=== PATIENT | female | born 1965 | race Caucasian/White ===

== ENCOUNTER → 2018-03-20 01:34 | Outpatient (CLI) | payer OTHER, SELFPAY ==
--- NOTE | 2018-03-20 11:46 | DI.REPORT_ITS ---
SYMPTOMS/DIAGNOSIS: SCREENING, Z12.31 MAMMOGRAMS: Mammograms were interpreted according to the usual protocol including computer analysis with CAD system, tomosynthesis and C view imaging. The breast tissue is of moderate radiodensity. There is no evidence of a dominant mass. There are no suspicious calcifications. When compared with the previous examination, there is a question regarding interval development of a small area of nodularity adjacent to the chest wall in the lateral portion of the right breast, as demonstrated on the CC projection. Further assessment of this patient with a craniocaudad compression spot film and rolled medial CC image and, if appropriate, ultrasound is recommended. SUMMARY: Category 0. Breast density category B. MQSA ASSESSMENT OF FINDINGS: Incomplete: Needs additional imaging evaluation. Category 0. Patient will receive a letter notifying them of these results. BI-RADS category B. There are scattered areas of fibroglandular density.
== END ==
PROVIDERS: PCP Family Medicine; Visit Provider Obstetrics & Gynecology Gynecology
DX: Z12.31 Encounter for screening mammogram for malignant neoplasm of breast (principal); R92.8 Other abnormal and inconclusive findings on diagnostic imaging of breast
CPT/HCPCS: 77063; 77067

== ENCOUNTER 2018-03-25 01:23 | Outpatient (CLI) | payer OTHER, SELFPAY ==
--- NOTE | 2018-03-25 09:25 | DI.MAMMO_ITS ---
SYMPTOM/DIAGNOSIS: F/U ABNL MAMMO, SMALL AREA OF NODULARITY ADJACENT TO CHEST WALL. ADDITIONAL MAMMOGRAPHIC VIEWS RIGHT BREAST AND RIGHT BREAST ULTRASOUND: 03/25 Additional images are interpreted according to the usual protocol including tomosynthesis and 2D imaging. Additional mammographic views of the right breast and right breast ultrasound were interpreted in conjunction. These examinations were obtained to evaluate incompletely visualized posteriorly located ovoid mass seen on recent mammogram. Additional mammographic views confirm a well circumscribed nodule with appearance of an intramammary lymph node. Breast ultrasound shows an approximately 8 x 10 mm in diameter well circumscribed mass with characteristic annel architecture. No suspicious mass identified. CONCLUSION: Small left breast nodule is lymph node. Follow up mammogram suggested in 12 months. Category 2, breast density category B. MQSA ASSESSMENT OF FINDINGS: Negative with benign findings. Category 2. Patient will receive a letter notifying them of these results. BI-RADS category B. There are scattered areas of fibroglandular density.
== END 2018-03-25 01:43 ==
PROVIDERS: PCP Family Medicine; Visit Provider Obstetrics & Gynecology Gynecology
DX: Z12.31 Encounter for screening mammogram for malignant neoplasm of breast (principal); R92.8 Other abnormal and inconclusive findings on diagnostic imaging of breast; N60.82 Other benign mammary dysplasias of left breast
CPT/HCPCS: 76642; 77063; 77067

== ENCOUNTER 2019-03-18 15:18 | Outpatient (CLI) | payer OTHER, SELFPAY ==
--- NOTE | 2019-03-18 14:24 | DI.RAD_ITS ---
SYMPTOMS/DIAGNOSIS: KNEE PAIN RIGHT KNEE: Three views. There are mild degenerative changes of the right knee predominantly involving the medial femoral tibial joint space and the patellofemoral joint. The bones are intact and normally mineralized. The soft tissues are unremarkable. IMPRESSION: Mild osteoarthritis of the right knee. LEFT KNEE: Three views. Mild degenerative changes are seen at the patellofemoral joint. The bones are intact and normally mineralized. The soft tissues are unremarkable. IMPRESSION: Mild degenerative changes of the left knee.
== END 2019-03-18 15:38 ==
PROVIDERS: PCP Family Medicine; Visit Provider Physician Assistant
DX: M25.561 Pain in right knee (principal); M25.562 Pain in left knee; M17.0 Bilateral primary osteoarthritis of knee
CPT/HCPCS: 73562

== ENCOUNTER 2019-05-08 02:18 | Outpatient (CLI) | payer OTHER, SELFPAY ==
--- NOTE | 2019-05-08 09:52 | DI.US_ITS ---
EXAM: US PELVIS TRANSVAGINAL CLINICAL HISTORY: R ovarian fullness s/p salpingectomy/hysterectomy TECHNIQUE: Ultrasound performed using standard protocol. COMPARISON: PELVIS TRANSVAG from 10/11/2015 PELVIS TRANSVAG from 10/11/2015 FINDINGS: Patient is status post hysterectomy and left oophorectomy as well as bilateral salpingectomy. There is a mass arising from the right ovary with a cystic and solid components and internal vascularity. It measures 4.6 x 51.4 x 1.7 cm. No free fluid is seen. A small cyst is noted on the left kidney. No renal calculi or hydronephrosis is seen. IMPRESSION: 4.6 centimeter cystic and solid right ovarian mass. Surgical consultation is recommended.
== END 2019-05-08 02:38 ==
PROVIDERS: PCP Family Medicine; Visit Provider Obstetrics & Gynecology Gynecology
DX: N83.8 Other noninflammatory disorders of ovary, fallopian tube and broad ligament (principal); N83.291 Other ovarian cyst, right side; Z90.710 Acquired absence of both cervix and uterus
CPT/HCPCS: 76830; 76856

== ENCOUNTER 2019-06-17 01:32 | Outpatient (CLI) | payer OTHER, SELFPAY ==
--- NOTE | 2019-06-17 12:43 | DI.MAMMO_ITS ---
EXAM: MAMMO SCREENING CLINICAL HISTORY: screening Z12.39 TECHNIQUE: Mammograms were interpreted according to the usual protocol including computer analysis w [employer] CAD system, tomosynthesis and C-view imaging. COMPARISON: Current examination is compared with previous examinations including February 2018 FINDINGS: The breasts are of moderate density with fairly symmetrical distribution of fibroglandular tissue. N o dominant mass or clumped microcalcification identified in either breast. Current examination is co mpared with previous examinations including February 2018 and there has been no gross interval change i n appearance in comparison with the previous studies. IMPRESSION: No specific evidence of malignancy at this time. Routine screening examinations are suggested at year ly intervals due to the family history of breast carcinoma. Category 1, breast density category B. BI-RADS Cat 1 - Negative Breast Density - Category B - Scattered areas of fibroglandular density
== END 2019-06-17 01:52 ==
PROVIDERS: PCP Family Medicine; Visit Provider Obstetrics & Gynecology Gynecology
DX: Z12.31 Encounter for screening mammogram for malignant neoplasm of breast (principal); Z80.3 Family history of malignant neoplasm of breast
CPT/HCPCS: 77063; 77067

== ENCOUNTER 2020-06-22 01:06 | Outpatient (CLI) | payer OTHER, SELFPAY ==
--- NOTE | 2020-06-22 10:48 | DI.MAMMO_ITS ---
EXAM: MG MAMMO SCREENING CLINICAL HISTORY: screening,Z12.39. TECHNIQUE: Bilateral full field digital CC and MLO mammographic images were obtained with 3D tomosyn thesis and utilizing computer aided detection (CAD). COMPARISON: Prior mammograms dating back to 2011, the most recent being May 2019. Breast ultra sound performed March 2018 was reviewed. FINDINGS: There are no new dominant masses nor malignant appearing microcalcification groups. Small nodules pos teriorly in both breasts have the appearance of benign lymph nodes. There is no new architectural di stortion nor skin thickening-retraction. IMPRESSION: Stable benign findings. No radiographic evidence of malignancy. BI-RADS Category 2 - Benign Findings Breast Density - Category B - Scattered areas of fibroglandular density Breast density Category C or D implies that the patient has dense breast tissue. Dense breast tissue can make it harder to find cancer on a mammogram. Dense breast tissue is also associated with an incr eased risk of breast cancer. This information about the result of the mammogram report was provided to the patient to raise their awareness. Use this report when you speak with the patient about their risks for breast cancer, which includes their family history. At that time, you may recommend additional screening tests (Ultrasoun d or MRI) as these tests may add significant information. A negative radiographic report should not delay biopsy if a dominant or clinically suspicious mass is present. Up to ten percent of cancers are not identified on mammography. A negative report may reinforce clinical impression. Adenosis and dense breasts may obscure an underlying neoplasm. False positive reports average 6 to 10%. Patient will receive a letter notifying them of these results.
== END 2020-06-22 01:26 ==
PROVIDERS: PCP Family Medicine; Visit Provider Obstetrics & Gynecology Gynecology
DX: Z12.31 Encounter for screening mammogram for malignant neoplasm of breast (principal); N63.20 Unspecified lump in the left breast, unspecified quadrant; N63.10 Unspecified lump in the right breast, unspecified quadrant
CPT/HCPCS: 77063; 77067

== ENCOUNTER 2021-10-02 00:33 | Outpatient (CLI) | payer OTHER, SELFPAY ==
--- NOTE | 2021-10-02 | DI.MAMMO_ITS ---
Exam(s) MAMMO SCREENING EXAM: MAMMO SCREENING CLINICAL HISTORY: SCREENING, Z12.39 TECHNIQUE: Mammograms were interpreted according to the usual protocol including computer analysis w [email or web address] CAD system, tomosynthesis and C-view imaging. COMPARISON: 2013 through 2019 FINDINGS: The breasts are composed of scattered fibroglandular densities, Breast Density category B. No suspicious masses or suspicious microcalcifications are seen. No skin thickening or abnormal axillary lymph nodes are seen. There has been no significant change from prior exams. IMPRESSION: BI-RADS Category 1, Negative mammogram Yearly screening mammography is recommended. Breast Density - Category B, scattered fibroglandular densities. A negative radiographic report should not delay biopsy if a dominant or clinically suspicious mass is present. Up to ten percent of cancers are not identified on mammography. A negative report may reinforce clinical impression. Adenosis and dense breasts may obscure an underlying neoplasm. False positive reports average 6 to 10%. Patient will receive a letter notifying them of these results.
== END 2021-10-02 00:53 ==
PROVIDERS: PCP Family Medicine; Visit Provider Registered Nurse
DX: Z12.31 Encounter for screening mammogram for malignant neoplasm of breast (principal)
CPT/HCPCS: 77063; 77067

== ENCOUNTER → 2022-02-20 18:47 | Outpatient (CLI) | payer OTHER, SELFPAY ==
--- NOTE | 2022-02-20 14:39 | DI.RAD_ITS ---
Exam(s) XR HAND RT COMPLETE EXAM: XR HAND RT COMPLETE CLINICAL HISTORY: PROXIMAL INTERPHALANGEAL JOINT OF FINGER, PAIN--M79.646. TECHNIQUE: 2D digital imaging was performed of the right hand. Three images were obtained. AP, late ral and oblique views were obtained. COMPARISON: No exams were available for comparison FINDINGS: BONES: No acute fracture is present. No bony destructive lesion is seen. The distal aspect of a sidep late and screws are seen in distal radius. JOINTS: No dislocation present. The joint spaces are well maintained. SOFT TISSUE: Normal. IMPRESSION: Unremarkable radiographs of the right hand. DATA REPOSITORY: RADIATION DOSE DELIVERED:
== END ==
PROVIDERS: PCP Family Medicine; Visit Provider Physician Assistant Medical
DX: M79.644 Pain in right finger(s) (principal)
CPT/HCPCS: 73130

== ENCOUNTER 2022-09-12 10:10 | Outpatient (REF) | payer OTHER, SELFPAY ==
[2022-09-12 15:42] LABS: HCT 43.6 % (36.0-46.0); HGB 14.1 g/dL (11.2-15.7); MCH 27.9 pg (27.0-33.0); MCHC 32.3 % (32.0-36.0); MCV 86 fL (80-95); MPV 10.1 fL (8.0-11.0); Platelet Count 318 10^3/uL (130-400); RBC 5.06 10^6/uL (3.93-5.22); RDW 15.5 % (11.7-14.6); RDW-SD 48.9 fL; WBC 6.33 10^3/uL (4.4-10.8)
[2022-09-12 16:17] LABS: Hemoglobin A1C 5.8 % (<5.7)
[2022-09-12 16:21] LABS: Anion Gap 11.9 mmol/L (3-11); BUN 16 mg/dL (7-18); CO2 26.1 mmol/L (21.0-32.0); CREATININE 0.9 mg/dL (0.55-1.02); Calcium 9.4 mg/dL (8.5-10.1); Chloride 102 mmol/L (98-107); Cholesterol 237 mg/dL (<200); Glucose 112 mg/dL (74-106); Potassium 4.1 mmol/L (3.5-5.1); Sodium 140 mmol/L (136-145); Triglyceride 131 mg/dL (<150)
[2022-09-12 17:25] LABS: Calculated LDL 136 mg/dL (<100); HDL Cholesterol 75 mg/dL (40-60); TSH 8.52 uIU/mL (0.36-3.74)
[2022-09-13 10:32] LABS: FREE T4 0.86 ng/dL (0.76-1.46)
[2022-09-13 17:52] LABS: T3, Total 147 ng/dL (97-169)
== END 2022-09-12 10:11 | disposition home or self-care (01) ==
LOC: NCHCN 10:10
PROVIDERS: PCP Family Medicine; Visit Provider Registered Nurse
DX: Z00.00 Encounter for general adult medical examination without abnormal findings (principal); R73.03 Prediabetes; R53.83 Other fatigue; Z79.899 Other long term (current) drug therapy; Z13.220 Encounter for screening for lipoid disorders
CPT/HCPCS: 80048; 80061; 85027; 83036; 84439; 84443; 84480

== ENCOUNTER 2022-12-15 06:26 | Emergency (ER) | payer OTHER, SELFPAY ==
--- NOTE | 2022-12-15 06:30 | DI.RAD_ITS ---
Exam(s) XR SHOULDER LT COMPLETE 2+V EXAM: XR SHOULDER LT COMPLETE 2+V CLINICAL HISTORY: fall, anterior left shoulder pain. TECHNIQUE: 2D digital imaging was performed. COMPARISON: No exams were available for comparison FINDINGS: Four views No evidence of fracture or dislocation. No abnormal soft tissue calcifications. Glenohumeral joint appears unremarkable. Mild degenerative changes in the AC joint. No osteophytes. Bone density norm al. No osseous lesions. IMPRESSION: No significant radiographic findings. DATA REPOSITORY: RADIATION DOSE DELIVERED:
[2022-12-15 06:32] VITALS: BP 170/89; PULSE 99; RESP 18; TEMP 37; O2SAT 97
--- NOTE | 2022-12-15 06:38 | ED.GENADUL_ITS ---
Discharge Plan Disposition Patient Disposition: Home Discharge Details Chief Complaint: Orthopedic Clinical Impression: Sprain of left shoulder Primary Care Provider: Maribel Brian ED Provider: Jatin Basurto Home Meds and New Rx's Prescriptions: No Action multivitamin with minerals 1 EACH tablet 1 ea PO QAM glucosamine-chondroitin 1 EACH tablet 1 ea PO DAILY pinecone extract 1 cap PO QAM Fish Oil 1 EACH capsule 1 ea PO estradiol 1 mg tablet 1 mg PO DAILY Qty: 30 2RF duloxetine 20 mg capsule,delayed release(DR/EC) 60 mg PO DAILY [place] cone extract capsule 1 tab PO DAILY cholecalciferol (vitamin D3) 1,000 UNITS tablet 5,000 unit PO HS Ferractiv 1 EACH capsule 1 cap PO QAM Discharge Instructions Instructions: Shoulder Sprain (ED) Additional Instructions: At this time your x-ray is negative for any evidence of fracture. As we discussed together I suspect that you sprained the rotator cuff. You have been given a sling for comfort, however use this with caution. If you do not move your shoulder much over the next few days it will become restricted, and you will develop frozen shoulder syndrome. Every day please passively move your arm in all ranges of motion 3-4 times per day to maintain mobility. Please take Tylenol and Motrin as needed for pain. You can apply Voltaren gel which is [id number] to your shoulder to help with the pain. I also supposed suspect that you have a mild bursa irritation, and this may take 6 weeks to improve for the pain. If your symptoms or not improving over the next 2 to 3 weeks, you may need to follow-up with our equipment specialist Whose numbers have been included below. If you notice any worsening of your symptoms, or any new symptoms such as vomiting, diarrhea, fever, chills, shortness of breath, chest pain, numbness, weakness, or fainting , please return immediately to the emergency department for reevaluation. Please follow up with your primary care provider as soon as possible for reassessment and reevaluation. As always, it was a pleasure partic ipating in your medical care today. Referrals: Parth Adan MD [ [facility] STAFF PHYSICIAN] - Maribel Brian [Primary Care Provider] - Dano Samuel MD [ [facility] STAFF PHYSICIAN] - Medical Decision Making This is a pleasant 57-year-old female who presents today for left shoulder pain. Patient is right-hand dominant. She states that she was walking this morning at 5:25 AM when she slipped because of a cat, she landed on her left elbow which caused torquing and pain in her left shoulder. She did take ibuprofen 800 mg, came to the ER for further assessment. Pain in her left shoulder is made worse with movement in all directions. She denies any numbness or tingling. No pain to the elbow or other complaints. No other modifying factors. Exam demonstrates tenderness over the biceps tendon, as well as with internal and external rotation of the left shoulder. Concern for mild rotator cuff injury or bursal irritation. We will get x-ray to rule out fracture, monitor closely and reassess. 7:47 AM X-ray negative for acute process per radiology. Suspect sprain versus rotational cuff injury. Will give sling only for comfort however we have educated the patient notably on the importance of continued movement to prevent any reduced range of motion or frozen shoulder syndrome. Recommend NSAID ther apy and ice for the next 1 to 2 weeks, and if no improvement may require orthopedic follow-up. I have extensively reviewed the treatment plan and discharge instructions with the patient. I have addressed all patient concerns at this time. The patient was made aware of what symptoms to monitor for that would warrant a return to the emergency department. Discussed the plan with the patient, they demonstrate verbal understanding and agreement with our assessment and plan at this time. The documentation in this chart was dictated using [employer] dictation software. Please excuse any dictation errors. FINDINGS: Bones/joints: There is no fracture or dislocation. Osseous structures are normal. Joint spaces are maintained. Soft tissues: Normal. IMPRESSION: No acute osseous pathology. Thank you for allowing us to participate in the care of your patient. Dictated and Authenticated by: Eliceo Barillas MD 12/15/2022 7:23 AM Eastern Time ([place] & [place]) HPI General Date/Time Provider Initiated Documentation: 12/15/22 06:27 . HPI Narrative: This is a pleasant 57-year-old female who presents today for left shoulder pain. Patient is right-hand dominant. She states that she was walking this morning at 5:25 AM when she slipped because of a cat, she landed on her left elbow which caused torquing and pain in her left shoulder. She did take ibuprofen 800 mg, came to the ER for further assessment. Pain in her left shoulder is made worse with movement in all directions. She denies any numbness or tingling. No pain to the elbow or other complaints. No other modifying factors. Related Data Home Medications Medication Instructions Recorded Confirmed glucosamine-chondroitin 500 mg-400 1 ea PO DAILY 09/29/12 12/15/22 mg tablet multivitamin with minerals 1 ea PO QAM 09/29/12 12/15/22 Pinecone Extract 1 cap PO QAM 10/13/12 12/15/22 cholecalciferol (vitamin D3) 25 5,000 unit PO HS 07/28/15 12/15/22 mcg (1,000 unit) tablet iron amino acid chelate-vit 1 cap PO QAM 08/07/16 12/15/22 [id number]-[id number] acid 27 mg-100 mcg-400 mcg cap (Ferractiv) omega-3 fatty acids-fish oil 340 1 ea PO 03/07/18 05/11/20 mg-1,000 mg capsule (Fish Oil) estradiol 1 mg tablet 1 mg PO DAILY #30 tabs 05/31/20 12/15/22 [place]ach [place] cone extract 1 tab PO DAILY 10/31/22 12/15/22 duloxetine 20 mg capsule,delayed 60 mg PO DAILY 10/31/22 12/15/22 release Previous Rx's Medication Instructions Recorded estradiol 1 mg tablet 1 mg PO DAILY #30 tabs 05/31/20 Allergies Allergy/AdvReac Type Severity Reaction Status Date / Time No Known Allergies Allergy Unverified 05/11/20 13:31 General Stated Complaint: Orthopedic SAHRA: 4 Review of Systems All systems reviewed & are unremarkable except as noted in HPI and below PFSH All Active Problems (Updated 12/15/22 @ 07:47 by Jatin Basurto DO) Sprain of left shoulder (Acute) Tinnitus, bilateral (Acute) Menopausal symptom (Acute) [place]Ac[place] [facility] [place]ar[place] right [place]oph[place] after abnormal pelvic ultrasound. Benign pathology. No further follow-up required. Hallux valgus of right foot (Acute) Hallux valgus of left foot (Acute) Primary osteoarthritis of right knee (Acute) Primary osteoarthritis of left knee (Acute) Medical History Fatigue Joint pain Rx with Duloxetine. Kidney stone Surgical History Abdominal hysterectomy B9 indications. Fibroids. Arthroplasty (08/17/16) INTERPOSITIONAL ARTHROPLASTY --LEFT WRIST/DR. SADLER Colonoscopy - MAC (09/30/17) Extraction of cataract Oophrectomy, Left 2017. Multiloculated mesothelial cyst removed via laparotomy. ? ovarian tissue identified. Bilateral salpingectomy performed at same surgery. R ovary has never been removed (no evidence of path report in [facility] records) Family History Mother Personal history of malignant neoplasm Breast ca Sister No problems noted. Brother No problems noted. Social History Smoking/Tobacco Use Status: Never Smoking risk assessment performed?: Yes Alcohol Intake: current Alcohol Intake frequency: a few times a month Drug use: Never Household members: none and other Details: to Vincent x21yrs. 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 3.ENT: Atraumatic external nose and ears. Moist MM. Neck: Symmetric, trachea midline, No thyromegaly. 4.CVS: +S1/S2, No murmurs or gallops. Peripheral pulses 2+ and equal in all extremities. Brisk capillary refill in all extremities. 5.RESP: Unlabored respiratory effort. Clear to auscultation bilaterally. No wheezes rales or rhonchi 6.GI: Soft, Nontender/Nondistended, No hepatosplenomegaly. No guarding or rebound. 7.MSK: Normocephalic/Atraumatic, Extremities w/o deformity. Elbow demonstrates no tenderness deformity or redness or edema. Forearm normal. Normal movement to the elbow and wrist and hands. Patient does have minimal pain on the anterior aspect of her shoulder over the biceps tendon. Pain with external rotation and internal rotation. Empty can test elicits notable pain and some weakness. No significant pain with abduction and adduction passively. 8.Skin: Warm, Dry. No rashes or lesions. 9.Neuro: emr specialist II-XII grossly intact. Sensation grossly intact, no focal neurologic deficits. 10.Psych: (AAO) x3. Appropriate mood and affect Course Vital Signs Vital signs: Vital Signs Temperature 37.0 C 12/15/22 06:32 Pulse 99 H 12/15/22 06:32 Respiratory Rate 18 12/15/22 06:32 Blood Pressure 170/89 H 12/15/22 06:32 Pulse Oximetry 97 12/15/22 06:32 Temperature 37.0 C 12/15/22 06:32 Temperature Source Oral 12/15/22 06:32 Pulse 99 H 12/15/22 06:32 Respiratory Rate 18 12/15/22 06:32 Blood Pressure 170/89 H 12/15/22 06:32 Pulse Oximetry 97 12/15/22 06:32 Oxygen Delivery Method Room Air 12/15/22 06:32 Oxygen Flow Rate 0 12/15/22 06:32 Pain Level 9 12/15/22 06:32
--- NOTE | 2022-12-15 07:24 | DI.VRAD_ITS ---
PROCEDURE INFORMATION: Exam: XR Left Shoulder Exam date and time: 12/15/2022 6:53 AM Age: 57 years old Clinical indication: Injury or trauma; Fall; Blunt trauma (contusions or hematomas); Shoulder; Left TECHNIQUE: Imaging protocol: Radiologic exam of the left shoulder. Views: 2 or more views. COMPARISON: No relevant prior studies available. FINDINGS: Bones/joints: There is no fracture or dislocation. Osseous structures are normal. Joint spaces are maintained. Soft tissues: Normal. IMPRESSION: No acute osseous pathology. Dictated and Authenticated by: Eliceo Barillas MD. Ordering:LASHONDA Steiner MD
== END 2022-12-15 07:56 | disposition home or self-care (01) ==
PROVIDERS: Emergency Provider Student in an Organized Health Care Education/Training Program; PCP Family Medicine
DX: S43.402A Unspecified sprain of left shoulder joint, initial encounter (principal); W01.0XXA Fall on same level from slipping, tripping and stumbling without subsequent striking against object, initial encounter
CPT/HCPCS: 99283; 73030

== ENCOUNTER 2023-02-26 08:36 | Outpatient (REF) | payer OTHER, SELFPAY ==
[2023-02-26 15:47] LABS: TSH (W/Ref FT4) 9.44 uIU/mL (0.36-3.74)
[2023-02-26 16:08] LABS: T4 8.8 ug/dL (4.7-13.3)
[2023-02-26 16:29] LABS: FREE T4 0.82 ng/dL (0.76-1.46)
== END 2023-02-26 08:37 | disposition home or self-care (01) ==
LOC: NCHCN 08:36
PROVIDERS: PCP Family Medicine; Visit Provider Registered Nurse
DX: E03.9 Hypothyroidism, unspecified (principal)
CPT/HCPCS: 84436; 84439; 84443

== ENCOUNTER → 2023-03-04 02:35 | Outpatient (CLI) | payer OTHER, SELFPAY ==
--- NOTE | 2023-03-04 07:34 | DI.MRI_ITS ---
Exam(s) MR UPPER JOINT LT WO EXAM: MR UPPER JOINT LT WO CLINICAL HISTORY: ? RTC TEAR,LT SHOULDER PAIN, M25.512 TECHNIQUE: Multiplanar multisequence MRI of the shoulder was performed. COMPARISON: CR,XR XR SHOULDER LT COMPLETE 2+V from 12/15/2022 FINDINGS: MARROW:There is no evidence of fracture, Hill-Sachs deformity, nor ominous osseous lesions. ROTATOR CUFF MECHANISM: AC JOINT/ACROMIUM: There are moderate degenerative changes in the AC joint. No evidence of os. Supraspinatus: There is a full-thickness tear of the supraspinatus-rotator cuff it with retraction of the musculotendinous junction to the level of the osseous glenoid the vena large bare area with AP m easurement of 3.5 cm. Mild atrophy. Infraspinatus: There is tearing of the anterior aspect of tendon. The more posterior aspect of the t endon maintains attachment to the greater tuberosity. Mild atrophy. Teres Minor: Intact. No evidence of tear nor muscle atrophy. Subscapularis/anterior cuff: Intact. No abnormal signal at the level of the multipennate insertional fibers. No significant tear nor atrophy. BICEPS TENDON: Not displaced from the intertubercular groove. It appears intact. There is some fluid in the biceps tendon sheath which is continue a pratt of the glenohumeral joint ef fusion. LABRUM: No labral tear identified. No evidence of paralabral cyst. GLENOHUMERAL JOINT: Glenohumeral joint effusion which extends into the subacromial space through the large bare area. Also extends down the long head biceps tendon sheath. No degenerative subarticular cysts. QUADRILATERAL SPACE: No evidence of mass in the region of the axillary nerve and dorsal circumflex hu meral vessels. Visualized triceps muscle at this level appears unremarkable. IMPRESSION: 1. There is a large of full-thickness tear of the supraspinatus-rotator cuff tendon with retraction o f the musculotendinous junction to the level of the osseous glenoid. This leaves a large bare area o tia the humeral head with continuity of fluid between the glenohumeral joint space and the subacromia l space. 2. Lesser amount of tearing seen in the anterior tendon fibers of the infraspinatus. More posteriorl y the teres minor is intact. Anteriorly the subscapularis-anterior cuff is intact. 3. No evidence of labral tear. No evidence of biceps tendon tear nor displacement. DATA REPOSITORY:
== END ==
PROVIDERS: PCP Family Medicine; Visit Provider Student in an Organized Health Care Education/Training Program
DX: M25.512 Pain in left shoulder (principal); M75.122 Complete rotator cuff tear or rupture of left shoulder, not specified as traumatic
CPT/HCPCS: 73221

== ENCOUNTER 2023-03-21 08:23 | Day surgery (SDC) | payer OTHER, SELFPAY ==
[2023-03-21] VITALS (11 sets, daily range): BP systolic 99–134; BP diastolic 51–102; PULSE 89–103; RESP 14–21; TEMP 36.3–36.8; O2SAT 92–100; BMI 33.3
--- NOTE | 2023-03-21 07:24 | W.PM.DSUDISC ---
Date of service: 03/21/23 Time of Service: 16:30 Discharge Plan Disposition Patient Disposition: Home Condition: Stable Discharge Details Attending Provider: Parth Adan Primary Care Provider: Maribel Brian Home Meds and New Rx's Prescriptions: New naproxen 250 mg tablet 250 - 500 mg PO BID PRNQty: 40 0RF Rx Instructions: take with a meal oxycodone 5 mg tablet 5 - 10 mg PO Q4H MDD 30 mg PRN (Reason: moderate to severe pain) Qty: 18 0RF Continued levothyroxine 25 mcg capsule 25 mcg PO DAILY estradiol 1 mg tablet 1 mg PO DAILY Rx Instructions: off 1 week; repeat cycle multivitamin with minerals 1 EACH tablet 1 ea PO QAM pinecone extract 1 cap PO QAM Fish Oil 1 EACH capsule 1 ea PO DAILY duloxetine 20 mg capsule,delayed release(DR/EC) 60 mg PO DAILY glucosamine-chondroitin 500-400 mg tablet 2 tab PO DAILY cholecalciferol (vitamin D3) 1,000 UNITS tablet 5,000 unit PO HS Ferractiv 27-100-400 mg-mcg-mcg capsule 1 cap PO .weekends Discharge Instructions Additional Instructions: Surgery: Left shoulder arthroscopy with partial rotator cuff repair (supraspinatus & infraspinatus), biceps transposition tenodesis, extensive debridement, and subacromial decompression. Activity: For 6 weeks, you should keep your arm at your side in a neutral position at all times except for physical therapy. Do not try to lift or raise your arm using your own muscles. You should use the sling whenever you are out of the house. You may have to adjust the abduction pillow or remove it for comfort. At home it is best to remove the sling and rest the arm on a pillow at your side or support the operative side with your other hand. You may allow the arm to dangle at your side. A physical therapy prescription will be sent electronically to begin in about 3 weeks. CONSERVATIVE protocol. Prescriptions: Naproxen 250 mg take 1-2 every 12 hours with a meal as needed for moderate pain Oxycodone 5 mg take 1-2 every 4-6 hours as needed for severe pain You may use cubt-[id number]-wboggos Tylenol (acetaminophen) as needed for mild pain. These pain medications may be taken all at once or in different combinations as needed. Also, recommend Colace (docusate) as a stool softener as surgery and pain medicine cause constipation. You may try isbt-wnn-bdyxhwe diphenhydramine (Benadryl) 25-50 mg nightly as a sleep aid Dressings: Remove shoulder bandage after 3 days. Leave the sticky Steri-Strips in place until they fall off or remove them after you shower. Cover the incisions with Band-Aids or leave them open to air. You may shower after 5 days. Follow-up: 10-[address] Adan You may take off the leg compression stockings this evening at home. You may also leave them on a few days longer if you have a history of leg swelling or edema. Let us know right away if you develop any redness, drainage, fevers, chest pain, or trouble breathing. Do not drink alcohol or drive for at least 24 hours after anesthesia. Please call the office during business hours with any questions or concerns. Discharge Orders Discharge Orders: Discharge Order (Routine); Ordered 03/21/23 Ordered By: Parth Adan DS: Diagnosis Discharge Diagnosis (1) Traumatic tear of left rotator cuff: Status: Acute
--- NOTE | 2023-03-21 07:28 | ROE_ITS ---
Date of service: 03/21/23 Time of Service: 12:00 Operative Note Operative Note DATE OF PROCEDURE: 03/21/23 PRE-OP DIAGNOSIS: Left: 1. Massive retracted rotator cuff tear 2. SLAP tear 3. Bursitis POST-OP DIAGNOSIS: same PROCEDURE: Left: 1. Rotator cuff repair, CPT# 41848. This involved partial repair of the supraspinatus and infraspinatus using anchors and sutures to reattach the rotat or cuff back to the footprint of the greater tuberosity. 2. Arthroscopic biceps transposition tenodesis, CPT# 54869. This involved arthroscopically suturing and relocating the long head of the biceps tendon from the bicipital groove to the superior aspect anterior and central on the greater tuberosity with suture anchor fixation. 3. Extensive debridement, CPT# 70032. This involved using arthroscopic hand instruments, power instruments, and radiofrequency instruments to release the long head of the biceps tendon and debride areas of labral tearing, synovitis, partial subscapularis tearing, SLAP tearing, mild humeral head chondromalacia working within the glenohumeral joint anteriorly, superiorly and posteriorly. 4. Subacromial decompression with greater tuberosity tuberoplasty, CPT# 66670. This involved using arthroscopic power instruments and a radiofrequency wand to complete a bursectomy and resect and smooth prominent greater tuberosity bone. The real estate legal assistant was medically required in order to help assist in techniques above, which require positioning the arm, holding the arthroscope, and manipulating multiple instruments and sutures at the same time. This cannot be done without the help of an experienced real estate legal assistant. SURGEON: Parth Adan HYDROELECT[employer]IC PLANT TECHNICIAN: Dilip Phillips ANESTHESIA TYPE: General LMA/ETT and Primary Nerve Block Refer to Anesthesia Record ESTIMATED BLOOD LOSS: 10 PATHOLOGY: none sent COMPLICATIONS: None Patient was transported to: PACU Patient's condition: stable Implants: Arthrex: 4.75mm SwiveLocks x 1 and 5.5mm SwiveLock x 1 Indications: The patient was diagnosed with the above conditions and appropriately indicated for surgical intervention. Please see complete medical record for details. Findings: Exam under anesthesia: Mild readily release of the adhesions restoring full range of motion without instability Glenohumeral joint: Significant rotator interval, anterior, and superior synovitis. Mild upper lateral margin subscapularis partial tearing. Mild central to superior humeral head chondromalacia. Anterior labral fraying and tearing. Type I SLAP tear labral fraying without any instability of the biceps tendon anchor. Intact biceps tendon with significant injection near the biceps anchor and at the superior aspect bicipital groove. Partial disruption transverse humeral ligament. Subacromial space: Moderate bursitis, no significant undersurface acromial bone spurring, significant lateral prominence of completely exposed greater tuberosity. Significant soft bone throughout the greater tuberosity medially and laterally. Possible chronic fibrinous changes about the greater tuberosity. Complete retracted supraspinatus rotator cuff tear past the level of the superior labrum with poor marginal lateral tissue quality and more bulbous foster tissue medially with limited excursion. Moderate thinning and also significant traction of the infraspinatus, which was more readily reducible over a portion of the greater tuberosity from posterior to anterior. Procedure Description: In the operating room, general anesthesia was induced. Bilateral shoulders were examined. The patient was positioned in the beachchair position. All bony prominences were well-padded. Preoperative antibiotics were administered. The shoulder was prepped and draped in the usual sterile fashion. The correct patient, procedure, and side of the procedure were all verified prior to incision. Starting through the posterior portal a standard complete diagnostic arthroscopy was performed of the glenohumeral joint including inspection of the long head of the biceps, anterior and superior labrum, subscapularis tendon, supraspinatus and infraspinatus tendons, and axillary recess. The glenoid and humeral head cartilage as well as the posterior labrum were inspected from an anterior viewing portal. Significant findings and interventions noted above. Including debridement anterior labrum, radiofrequency wand superior labrum establish stable labrum, debridement rotator interval synovitis as well, debride mild superior lateral margin and supraspinatus tearing. Biceps tendon strong and intact although significant synovitis in the bicipital groove and through the intra-articular segment, lightly ablated radiofrequency wand to remove. Rotator cuff tear thoroughly inspected, released, mobilized and arm position optimized. Supraspinatus leading edge tissue poor quality debrided to more stable healthy tissue. Minimal tendon remnant with only moderate excursion about 50% of the way to the medial aspect of the greater tuberosity. Tendon remnant retracted past medially the superior labrum. Medial footprint medialized a few millimeters. Rotator interval anterior supersize release, additional traction and releases done between the supraspinatus infraspinatus. Still supraspinatus only had excursion about 70% of the way to the medialized medial row. The infraspinatus however had more reasonable excursion now and wit h the arm even in neutral had about 50% coverage over the greater tuberosity without undue tension coverage from posterior to anterior. With the arm in some external rotation no significant traction was required. The biceps could be mobilized to the anterior third superior greater tuberosity and the infraspinatus could be matched from posterior to anterior covering the posterior two thirds the greater tuberosity. Decision was made to proceed with autograft biceps capsular reconstruction. There was a prominent lateral greater tuberosity bone, which was thoroughly smoothed and reduce given the lack of soft tissue coverage as part of a tuburoplasty to reduce impingement. The biceps transposition tenodesis was then done leaving the biceps attached to the superior labrum. The transverse humeral ligament was released distally as necessary to mobilize the biceps laterally out of the bicipital groove. A suture tape FiberLink was then placed around cinched and securing the biceps tendon at the level of planned fixation. The undersized punch was used, it was easily delivered into the greater tuberosity with minimal resistance from the bone, underscoring the significant poor bone and potentially chronic nature of this massive rotator cuff tear, an oversized 4.75mm anchor was then inserted with reasonable but not great fixation strength. The knotless repair additional suture was then shuttled around the biceps tendon in a simple stitch configuration adding additional security and compression biceps over the greater tuberosity. The infraspinatus could be nicely reapposed along the posterior margin of the transposed biceps tendon. The self retrieving suture passer was then used to place an inverted horizontal mattress stitch in the center portion of the planned posterior to anterior repair of the infraspinatus, I then used to place an additional suture tape FiberLink medial to this horizontal mattress, as well as lateral, the stitches had reasonably good tissue fixation strength and could have demonstrated good reduction over the two thirds of the prepared greater tuberosity. Owing to the significantly soft bone over the central greater tuberosity, need to avoid converge in her being near the prior placed anchor, and wanting to avoid lateral bone due to poor quality the repair sutures were draped over the biceps tendon and the undersized punch used in the exposed bicipital groove. As usual, there was good bone in this location. An even more oversized 5.5 mm suture anchor was then placed with all 4 repair suture ends individually tensioned the appropriate amount. There was good suture and suture anchor fixation strength. The infraspinatus nicely draped over the prepared greater tuberosity and reduced to about the biceps tendon essentially completing coverage over the posterior half of the greater tuberosity. The infraspinatus with some of the supraspinatus incorporated more medially nicely lined up with the superior labrum biceps attachment as well with reasonable tissue now immediately considering the biceps tendon transposed as a restraint to superior migration instability and this infraspinatus adjacent posteriorly. The repair was stable through range of motion and testing. There was no significant gap remaining for any additional repairing or reconstruction. One of the repair sutures from the biceps groove anchor eyelet safety mechanism was then passed through a simple stitch through some anterior supraspinatus or transverse humeral ligament tissue then secured with SMC arthroscopic knot adding nice additional tissue coverage over the biceps groove. Now there is nice tissue coverage over the biceps groove, biceps tendon over the anterior previous exposed greater tuberosity, and then infraspinatus from here on posteriorly. The biceps tendon was well secured by all 4 infraspinatus repair sutures draped nicely over it and compressing it down to the prepared and smooth greater tuberosity. The shoulder was drained of arthroscopic fluid. All portal sites were copiously irrigated. These incisions were closed using 3-0 Monocryl in a buried fashion and then covered with Mastisol, Steri-Strips, Xeroform, dry gauze, and ABDs. The dressings were covered and secured with Medipore tape. The operative extremity was placed into a sling for immobilization. The patient awoke from anesthesia without complication and was transferred to the recovery room in a stable condition. Given the significance of this injury and complexity of the repair, high risk for failure. Will proceed with CONSERVATIVE recovery and rehab protocol. Should dysfunction persist or repair fail to heal, would have to consider other reconstructive options like dermal allograft superior capsular reconstruction. Age too young for balloon spacer or reverse TSA.
[2023-03-21] MEDS: Lactated Ringers 1,000 ML 80 ML IV (09:25)
--- NOTE | 2023-03-21 10:35 | ANES.PREOP_ITS ---
General Info Date of Service Date Performed: 03/21/23 Height: 5 ft 4 in Weight: 88.2 kg Body Mass Index (BMI): 33.3 Surgical Procedure: Operation Date: 03/21/23 11:40 Proposed Procedure Side Surgeon p Shoulder Rotator Cuff Arthroscopic w/Extensive Debridement, Biceps Tenodesis,Subacromial Decompression, Possible Allograft Superior Capsular Reconstruction Left Parth Adan MD Meds Allergies and Home Medications Allergies Allergy/AdvReac Type Severity Reaction Status Date / Time No Known Allergies Allergy Unverified 03/21/23 08:49 Home Medication Medication Instructions Recorded multivitamin with minerals 1 ea PO QAM 09/29/12 Pinecone Extract 1 cap PO QAM 10/13/12 cholecalciferol (vitamin D3) 25 5,000 unit PO HS 07/28/15 mcg (1,000 unit) tablet omega-3 fatty acids-fish oil 340 1 ea PO DAILY 03/07/18 mg-1,000 mg capsule (Fish Oil) duloxetine 20 mg capsule,delayed 60 mg PO DAILY 10/31/22 release glucosamine-chondroitin 500 mg-400 2 tab PO DAILY 02/13/23 mg tablet iron amino acid chelate-vit 1 cap PO .weekends 02/13/23 C93-lrtyc acid 27 mg-100 mcg-400 mcg cap (Ferractiv) estradiol 1 mg tablet 1 mg PO DAILY 03/12/23 levothyroxine 25 mcg capsule 25 mcg PO DAILY 03/12/23 Current Visit Medications: Current Medications Generic Name Dose Route Start Last Admin Trade Name Freq PRN Reason Stop Dose Admin Ringer's Solution 1,000 mls @ 80 mls/hr 03/21/23 06:00 03/21/23 09:25 IV 04/19/23 23:59 80 mls/hr INFUSION ISAAK Administration Cefazolin Sodium/Dextrose 2 gm in 50 mls @ 100 mls/hr 03/21/23 06:00 Ancef Duplex IVPB 04/19/23 23:59 PREOP ISAAK IV Miscellaneous Supplies 1 each 03/21/23 06:00 Iv Access IV 04/19/23 23:59 DIRECTED ISAAK Oxycodone HCl 0 mg 03/21/23 07:24 Oxycodone 5 Mg Tab PO 04/20/23 07:23 Q3H PRN PRN Pain Sodium Chloride 0 ml 03/21/23 06:00 Normal Saline Flush 10 Ml Syr IV 04/19/23 23:59 PRN PRN Sodium Chloride 0 ml 03/21/23 06:00 Normal Saline 10 Ml Vial IJ 04/19/23 23:59 DIRECTED PRN Sterile Water 0 ml 03/21/23 06:00 Water,Injection,Sterile 10 Ml Vial IJ 04/19/23 23:59 DIRECTED PRN PFSH Active Problems Active Problems: Problem Status Onset Code Primary osteoarthritis of left knee M17.12 Primary osteoarthritis of right knee M17.11 Hallux valgus of left foot M20.12 Hallux valgus of right foot M20.11 History of right oophorectomy Z90.721 Menopausal symptom N95.1 Tinnitus, bilateral H93.13 Traumatic tear of left rotator cuff 12/15/22 S46.012A Medical History Medical History Fatigue Joint pain Rx with Duloxetine. Kidney stone Medical History Comments:: Per preop: Projective vomiting, and states it takes her a very long time to come out of anesthesia. Pt states in regards to doing a nerve block, she has residual numbness in (L) wrist; reports mother also had similar issues Surgical History Surgical History (Updated 03/21/23 @ 08:54 by Christine Weber) Abdominal hysterectomy B9 indications. Fibroids. Arthroplasty (08/17/16) INTERPOSITIONAL ARTHROPLASTY --right wrist/DR. SADLER plate and screw in situ Colonoscopy - MAC (09/30/17) Extraction of cataract Hx of thumb surgery left Oophrectomy, Left 2017. Multiloculated mesothelial cyst removed via laparotomy. ? ovarian tissue identified. Bilateral salpingectomy performed at same surgery. R ovary has never been removed (no evidence of path report in [facility] records) Tobacco Smoking/Tobacco Use Status: Never Alcohol Alcohol Intake: current Alcohol intake frequency: holidays/special occasions only Substance Use Substance use: Rarely Substance use type: marijuana Details: gummies Vital Signs and Lab Results Vital Signs Most Recent Vital Signs in EMR: Most Recent Vital Signs Temp Pulse Resp BP Pulse Ox 36.3 C L 94 H 14 133/102 H 96 03/21/23 08:50 03/21/23 08:50 03/21/23 08:50 03/21/23 08:50 08/31/23 08:50 Lab Results Blood Type / Crossmatch: No Data to Display Complete Blood Count: No Data to Display Complete Metabolic Panel: No Data to Display Liver Function Panel: No Data to Display Coagulation Panel: No Data to Display Cardiac Panel: No Data to Display Arterial Blood Gas: No Data to Display Venous Blood Gas: No Data to Display Pancreas Panel: No Data to Display Thyroid Panel: Thyroid Stimulating Hormone (TSH) 9.44 uIU/mL (0.36-3.74) H 02/26/23 08: 25 Thyroxine (T4) 8.8 ug/dL (4.7-13.3) 02/26/23 08:25 Infectious Disease: No Data to Display Blood Cultures: No Data to Display Toxicology Panel: No Data to Display Anesthesia Assessment and Plan Anesthesia History Personal History: No History of Anesthesia Complications, PONV, Delayed Emergence and Other Family History: Family History Unknown and Other Exercise Tolerance Exercise Tolerance: Metabolic Equivalents>4 Pertinent Negatives Pertinent Negatives: No Symptoms of GERD Cardiac & Pulmonary Exam Cardiac Exam: Normal S1/S2 Heart Sounds Pulmonary Exam: Clear Bilateral Breath Sounds Implantable Cardiac Device Does patient have a Pacemaker or an ICD?: No Airway Exam Known Difficult Airway: No Mallampati Class: 3 Mouth Opening: Narrow (< 3cm) Thyromental Distance: Greater than 3 cm Neck Range of Motion: Full ROM Neck Circumference: Thick Teeth Condition: Normal Dentition ASA Classification ASA Score: ASA 2 Emergency Case?: No NPO Status NPO Status: NPO Clears >2 hours, Solids >8 hours Anesthesia Plan Resuscitation Status: Full Code Anesthesia Technique: General Anesthesia Airway Planned: Endotracheal Tube Pain Management: Surgeon and patient request nerve block Monitors Used: Standard Monitors
[2023-03-21] MEDS: ceFAZolin 2 GM/50 ML BAG IVPB (11:31)
--- NOTE | 2023-03-21 12:02 | W.ANESNERVE ---
Nerve Block Single Injection Procedure Date and Time Date Performed: 03/21/23 Procedure Start: 11:06 Location Where Procedure Performed Procedure Location: Day Surgery Unit Reason Performed: Postoperative Analgesia Requesting Provider: Parth Adan Timeout Performed Timeout Performed: Yes Monitoring Used ECG, Blood Pressure, SpO2, ETCO2 and See EMR for corresponding vital signs Sterility Sterility: Hand Hygiene, Surgical Cap, Surgical Mask, Sterile Gloves, Eye Protection and Chlorhexidine Sedation Given During Procedure Sedation Given (Indicate Dose Given): Versed IV Dose:: 3mg Patient Mental Status Patient Mental Status: Sedate with meaningful communication Nerve Block 1st Nerve Block: Laterality: Left Block Type: Interscalene Ultrasound Image Saved?: Yes Needle / Catheter Used: 100mm SonoPlex II Local Anesthetic Bolus (Indicate Dose Given): Lidocaine used for local infiltration of skin, Injected in 3-5ml increments after negative blood aspiration, Bupivacaine 0.5% Dose:: 10cc/0.5% (50mg) and Exparel Dose:: 10cc/1.3% (133mg) Additives (Indicate Dose Given): Epinephrine to make 1:200,000 (5mcg/ml) Dose:: 100mcg(5mcg/cc) and Decadron Dose:: 4mg Ultrasound: Sterile probe cover and gel used Nerve Stimulator: Not Used Paresthesia: None Procedure Tolerated: No Complications and Patient tolerated well Procedure Outcome: Successful Performed By: Luis Eduardo Hercules
[2023-03-21] MEDS: Tranexamic Acid 1,000 MG/10 ML VIAL 1000 MG (12:10)
--- NOTE | 2023-03-21 14:30 | W.ANESPOSTOP ---
Postoperative Evaluation Date, Time and Location Date Performed: 03/21/23 Time Performed: 14:30 Patient Location: PACU Vital Signs Most Recent Imported Vital Signs: Most Recent Vital Signs Temp Pulse Resp BP Pulse Ox 36.6 C 89 18 119/54 L 95 03/21/23 14:18 03/21/23 14:18 03/21/23 14:18 03/21/23 14:18 03/21/23 14:18 Pain Score Most Recent Pain Score: Most Recent Pain Score Pain Level 3 03/21/23 14:18 Assessment Mental Status: Arousable with meaningful communication Airway and Respiratory Function: Patent airway with normal (patient baseline) respiratory exam Cardiovascular Function: Hemodynamically Stable Hydration Status: Adequately Hydrated Nausea & Vomiting: No Nausea or Vomiting Pain: Pain is tolerable per patient Peripheral Nerve Block: Regional nerve block not resolved at time of post operative discharge
[2023-03-21] MEDS: Ketorolac 15 MG/ML VIAL IVP (14:32)
[2023-03-21] MEDS: oxyCODONE 5 MG TAB PO (15:17)
== END 2023-03-21 17:00 | disposition home or self-care (01) ==
PROVIDERS: PCP Family Medicine; Visit Provider Student in an Organized Health Care Education/Training Program
PROC: (CPT 29827; principal; 2023-03-21 11:30)
DX: M75.102 Unspecified rotator cuff tear or rupture of left shoulder, not specified as traumatic
CPT/HCPCS: 29827; 29828; 29823; 29826; 76942; J0131; J0171; J0690; J1100; J1885; J2250; J2405; J2704

== ENCOUNTER 2023-04-22 16:54 | Outpatient (REF) | payer OTHER, SELFPAY ==
[2023-04-22 14:54] LABS: TSH 6.74 uIU/mL (0.36-3.74)
== END 2023-04-22 16:55 | disposition home or self-care (01) ==
LOC: NCHCN 16:54
PROVIDERS: PCP Family Medicine; Visit Provider Family Medicine
DX: E03.9 Hypothyroidism, unspecified (principal)
CPT/HCPCS: 84443; 85379

== ENCOUNTER → 2023-07-04 01:13 | Outpatient (CLI) | payer OTHER, SELFPAY ==
--- NOTE | 2023-07-04 13:14 | DI.MRI_ITS ---
Exam(s) MR UPPER JOINT LT WO EXAM: MR UPPER JOINT LT WO CLINICAL HISTORY: L SHOULDER PAIN,traumatic tear lt rotator cuff,,s46.012a. TECHNIQUE: Multiplanar multisequence MRI was performed. COMPARISON: MR MR UPPER JOINT LT WO from 03/04/2023 FINDINGS: BONES: There is no fracture or contusion pattern. Orthopedic hardware seen in the humeral head consis tent with interval rotator cuff surgery. JOINTS: There are degenerative changes seen at the acromioclavicular joint. There is mild superior s ubluxation of the humeral head relative to the glenoid. TENDONS: Supraspinatus: Supraspinatus tendon attachment onto the humeral head is not visualized suspicious for complete tear. Infraspinatus: There is a portion of the infraspinatus attached to the humerus at the posterior aspec t of the humeral head. Subscapularis: There is tendinosis of the subscapularis tendon. Teres Minor: Unremarkable. Biceps and [place]: There appears to have been surgical repositioning of the biceps tendon. The tendon is not seen in the bicipital groove. This likely reflects a biceps tenodesis MUSCLES: Mild fatty atrophy of the infraspinatus and supraspinatus muscles. GLENOID LABRUM: Unremarkable on this noncontrast examination. SOFT TISSUES: Unremarkable. LIGAMENTS: Unremarkable. OTHER: Subacromial and subdeltoid bursae are unremarkable. IMPRESSION: 1. Interval postsurgical changes of a biceps tendon repair. 2. Findings suspected of a supraspinatus tendon tear. 3. The infraspinatus tendon is seen attached to the humeral head along the posterior aspect. Findings suggestive of a biceps tenodesis. 4. Mild fatty atrophy of the infraspinatus and supraspinatus muscles. 5. Superior subluxation of the humeral head relative to the glenoid. DATA REPOSITORY:
== END ==
PROVIDERS: PCP Family Medicine; Visit Provider Student in an Organized Health Care Education/Training Program
DX: Z98.890 Other specified postprocedural states (principal); S46.012A Strain of muscle(s) and tendon(s) of the rotator cuff of left shoulder, initial encounter; X58.XXXA Exposure to other specified factors, initial encounter
CPT/HCPCS: 73221

== ENCOUNTER 2023-08-20 02:33 | Outpatient (CLI) | payer OTHER, SELFPAY ==
[2023-08-20 12:04] LABS: Abs Immature Grans 0.02 10^3/uL (0.0-0.06); Absolute Basophil Count 0.04 10^3/uL (0.0-0.2); Absolute Eosinophil Count 0.25 10^3/uL (0.0-0.7); Absolute Lymphocyte Count 3.08 10^3/uL (1.2-3.4); Absolute Monocyte Count 0.54 10^3/uL (0.1-0.8); Absolute Neutrophil Count 3.38 10^3/uL (1.2-6.7); Basophils % 0.5; ESR 9 mm/hr (0-30); Eosinophils % 3.4; HCT 38.9 % (36.0-46.0); HGB 12.8 g/dL (11.2-15.7); Immature Grans % 0.3; Lymphocytes % 42.1; MCH 30.2 pg (27.0-33.0); MCHC 32.9 % (32.0-36.0); MCV 92 fL (80-95); Monocytes % 7.4; Neutrophils % 46.3; Platelet Count 296 10^3/uL (130-400); RBC 4.24 10^6/uL (3.93-5.22); RDW 13.9 % (11.7-14.6); RDW-SD 46.7 fL; WBC 7.31 10^3/uL (4.4-10.8)
[2023-08-20 12:24] LABS: C-Reactive Protein 0.81 mg/dL (0.0-0.3)
== END 2023-08-20 02:34 | disposition home or self-care (01) ==
LOC: LBO 02:33
PROVIDERS: PCP Family Medicine; Visit Provider Student in an Organized Health Care Education/Training Program
DX: S46.012A Strain of muscle(s) and tendon(s) of the rotator cuff of left shoulder, initial encounter (principal); Z01.818 Encounter for other preprocedural examination; X58.XXXA Exposure to other specified factors, initial encounter
CPT/HCPCS: 36415; 85652; 85025; 86140

== ENCOUNTER 2023-09-25 12:56 | Outpatient (REF) | payer OTHER, SELFPAY ==
[2023-09-25 21:29] LABS: Hemoglobin A1C 5.6 % (<5.7)
[2023-09-25 21:37] LABS: TSH 5.99 uIU/Ml (0.36-3.74)
== END 2023-09-25 12:57 | disposition home or self-care (01) ==
LOC: NCHCN 12:56
PROVIDERS: PCP Family Medicine; Visit Provider Family Medicine
DX: R73.03 Prediabetes (principal); E02 Subclinical iodine-deficiency hypothyroidism
CPT/HCPCS: 83036; 84443

== ENCOUNTER → 2023-10-08 03:16 | Outpatient (CLI) | payer OTHER, SELFPAY ==
--- NOTE | 2023-10-08 | DI.MAMMO_ITS ---
Exam(s) MAMMO SCREENING EXAM: MAMMO SCREENING CLINICAL HISTORY: SCREENING, Z12.39. TECHNIQUE: Bilateral full field digital CC and MLO mammographic images were obtained with 3D tomosyn thesis and utilizing computer aided detection (CAD). COMPARISON: Prior mammograms were reviewed. FINDINGS: There has been no significant change in the appearance and distribution of the fibroglandular tissue. Small benign-appearing nodule laterally in the left breast is unchanged from prior mammograms. There are no new spiculated masses nor malignant appearing microcalcification groups. There is no significant architectural distortion nor skin thickening-retraction. IMPRESSION: No radiographic evidence of malignancy. BI-RADS Category 1 - Negative Breast Density - Category B - Scattered areas of fibroglandular density Breast density Category C or D implies that the patient has dense breast tissue. Dense breast tissue can make it harder to find cancer on a mammogram. Dense breast tissue is also associated with an incr eased risk of breast cancer. This information about the result of the mammogram report was provided to the patient to raise their awareness. Use this report when you speak with the patient about their risks for breast cancer, which includes their family history. At that time, you may recommend additional screening tests (Ultrasoun d or MRI) as these tests may add significant information. A negative radiographic report should not delay biopsy if a dominant or clinically suspicious mass is present. Up to ten percent of cancers are not identified on mammography. A negative report may reinforce clinical impression. Adenosis and dense breasts may obscure an underlying neoplasm. False positive reports average 6 to 10%. Patient will receive a letter notifying them of these results.
== END ==
PROVIDERS: PCP Family Medicine; Visit Provider Family Medicine
DX: Z12.31 Encounter for screening mammogram for malignant neoplasm of breast (principal)
CPT/HCPCS: 77063; 77067

== ENCOUNTER 2024-01-06 14:08 | Outpatient (REF) | payer OTHER, SELFPAY ==
[2024-01-06 15:37] LABS: TSH 4.31 uIU/Ml (0.36-3.74)
== END 2024-01-06 14:09 | disposition home or self-care (01) ==
LOC: NCHCN 14:08
PROVIDERS: PCP Family Medicine; Visit Provider Family Medicine
DX: E02 Subclinical iodine-deficiency hypothyroidism (principal)
CPT/HCPCS: 84443

== ENCOUNTER 2024-03-03 13:18 | Outpatient (CLI) | payer OTHER, SELFPAY ==
--- NOTE | 2024-03-03 10:30 | DI.RAD_ITS ---
Exam(s) XR SHOULDER LT COMPLETE 2+V EXAM: XR SHOULDER LT COMPLETE 2+V CLINICAL HISTORY: shoulder pain. TECHNIQUE: 2D digital imaging was performed of the left shoulder. Three images were obtained. Gras hey, Y-view and axillary views were obtained. COMPARISON: CR,XR XR SHOULDER LT COMPLETE 2+V from 12/15/2022 FINDINGS: BONES: No acute fracture is present. No bony destructive lesion is seen. JOINTS: No dislocation present. The acromioclavicular and glenohumeral joints are well maintained. SOFT TISSUE: Normal. IMPRESSION: Unremarkable radiographs of the left shoulder. DATA REPOSITORY: RADIATION DOSE DELIVERED:
== END 2024-03-03 13:19 | disposition home or self-care (01) ==
LOC: DIORS 13:18
PROVIDERS: PCP Family Medicine; Visit Provider Physician Assistant
DX: S46.012A Strain of muscle(s) and tendon(s) of the rotator cuff of left shoulder, initial encounter (principal); X58.XXXA Exposure to other specified factors, initial encounter
CPT/HCPCS: 73030

== ENCOUNTER 2024-03-27 15:19 | Outpatient (REF) | payer OTHER, SELFPAY ==
--- OUTSIDE RECORDS SUMMARY | 2024-03-27 15:22 | XMS_ITS | Encounter Summary ---
Author Organization [facility] [place] [address] Care Team Providers Care Legal Arbitrator Name Role Phone Mei Ge APRN Primary Care Provider Encounter Details Date Type Department Care Team (Late st Contact Info) Description 09/17/2023 Orders [place] [address] Chandrakant Mendez MD [facility] [place] [address] Chronic pain in left shoulder Social History Tobacco Use Types Packs/Day Years Used Date Smoking Tobacco: Never Smokeless Tobacco: Never Alcohol Use Standard Drinks/Week Comments Yes 0 (1 standard drink = 0.6 oz pur e alcohol) rare Sex and Gender Information Value Date Recorded Sex Assigned at Not on file Gender Identity Not on file Sexual Orientation Not on file documented as of this encounter Plan of Treatment Not on file documented as of this encounter Visit Diagnoses Diagnosis Chronic pain in left shoulder Pain in joint, shoulder region documented in this encounter Care Teams Legal Arbitrator Relationship Specialty Start Date End Date Mei Ge APRN [address] [place] [address] PCP - General Family Medicine 08/19/23 documented as of this encounter
--- OUTSIDE RECORDS SUMMARY | 2024-03-27 15:22 | XMS_ITS | Encounter Summary ---
Author Organization [facility] Address [address] [place] [address] Care Team Providers Care Web Services Architect Name Role Phone Maribel Brian MD Primary Care Provider [phone] Unknown, Provider Primary Care Provider [phone] Maribel Brian MD Primary Care Provider [phone] Reason for Visit * Reason Onset Date Comments Injections 10/19/2015 steroid Encounter Details Date Type Department Care Team (Late st Contact Info) Description 10/19/[address] [facility] Rheumatology & Immunology - [facility] [address], [place] [id number] iMta Fung MD [address] [place] [phone] Injections (steroid) Social History Tobacco Use Types Packs/Day Years Used Date Smoking Tobacco: Never Sex and Gender Information Value Date Recorded Sex Assigned at Not on file Gender Identity Not on file Sexual Orientation Not on file documented as of this encounter Miscellaneous Notes * Telephone Encounter - Stacey Dooley - 11/08/2015 1336 EDT Pt has appointment 12/13/15@ 11:00 * Telephone Encounter - Lex Mariana - 10/19/2015 1544 EDT Reason for Call: Injections Summary/Symptoms: Pt calling stating she had a steroid injection in her thumb on 08.02. Pt believes it's starting to wear off and would like to know when she should have another appt for an injection.Please call Mariana Burnett 10/19/2015 15:44 documented in this encounter Plan of Treatment Not on file documented as of this encounter Visit Diagnoses Not on filedocumented in this encounter Care Teams Web Services Architect Relationship Specialty Start Date End Date Maribel Brian MD [address] [place] [address] PCP - General 06/13/15 11/20/15 Unknown, Provider, [address] [place] [address] PCP - General 11/21/15 12/11/15 Maribel Brian MD [address] [place] [address] PCP - General 12/12/15 documented as of this encounter
--- OUTSIDE RECORDS SUMMARY | 2024-03-27 15:22 | XMS_ITS | Clinical Summary ---
Author Organization [facility] Address [address] [place] [address] Care Team Providers Care Police Or Patrol Park Officer Name Role Phone Maribel Brian MD Primary Care Provider [phone] Allergies No known active allergies Medications Medication Sig Dispensed Refills Start Date End Date Status traMADol (ULTRAM) 50 mg tablet Take 50 mg by mouth every 6 hours Active cyanocobalamin 500 mcg tablet Take 500 mcg by mouth daily Active [place]-3 Fatty Acids 300 mg capsule Take by mouth Active HYALURONATE SODIUM (HYALURONIC ACID, SODIUM, ORAL) Take 30 mg by mouth daily Active Potassium Citrate 10 mEq (1,080 mg) tablet extended release Take 10 mEq by mouth 2 times daily. Active Multivitamins with Minerals tablet tablet Take 1 Tab by mouth daily. Active TURMERIC ROOT EXTRACT ORAL Take 450 mg by mouth daily. Active PSYLLIUM HUSK (FIBER-CAPS ORAL) Take by mouth 2 times daily. Active L.ACID/L.CASEI/B.BIF/B .SAMSON/FOS (PROBIOTIC BLEND ORAL) Take by mouth daily. Active cholecalciferol, Vitamin D3, 1,000 unit tablet Take 1,000 Units by mouth 5 times daily. Active diclofenac sodium 1 % gel Apply 2 grams to hand joint as needed for pain up to three times daily. 1 Tube 3 12/13/2015 Active Active Problems Problem Noted Date Diagnosed Date Primary osteoarthritis involving multiple joints 12/13/2015 Kidney stone 12/13/2015 Surgical History Surgery Date Site/Laterality Comments KIDNEY STONE SURGERY PARTIAL HYSTERECTOMY 2009 WRIST FRACTURE SURGERY 2005 Right fell on ice, shattered bone. plates and screws in place CATARACT REMOVAL WITH IMPLANT 2005 Bilateral Family History Medical History Relation Comments High Blood Pressure Brother stents Cancer Father spine, unclear p rimary Stroke Father Cancer Mother metastatic colon cancer - age 61 Cancer Sister throat - history of smoking Relation Status Comments Brother Alive Father Mother Sister Alive Social History Tobacco Use Types Packs/Day Years Used Date Smoking Tobacco: Never Smokeless Tobacco: Never Alcohol Use Standard Drinks/Week Comments Yes 0 (1 standard drink = 0.6 oz pur e alcohol) less than one per month Sex and Gender Information Value Date Recorded Sex Assigned at Not on file Gender Identity Not on file Sexual Orientation Not on file Obstetrics History Last Filed Vital Signs Vital Sign Reading Time Taken Comments Blood Pressure 110/70 12/13/2015 1137 EDT Pulse 80 12/13/2015 1137 EDT Temperature - - Respiratory Rate - - Oxygen Saturation - - Inhaled Oxygen Concentration - - Weight 81.1 kg (178 lb 12.8 oz) 12/13/2015 1137 EDT Height 162.6 cm (5' 4) 08/02/2015 0939 EST Body Mass Index 30.69 08/02/2015 0939 EST Plan of Treatment Health Maintenance Due Date Last Done Comments Hepatitis C Screen 1965 Hepatitis B Vaccine (1 of 3 - 19+ 3-dose series) 10/04 COVID-19 Vaccine ( - 2022- season) 2023 Care Teams Police Or Patrol Park Officer Relationship Specialty Start Date End Date Maribel Brian MD [address] [place] [address] PCP - General 12/12/15
--- OUTSIDE RECORDS SUMMARY | 2024-03-27 15:22 | XMS_ITS | Encounter Summary ---
Author Organization [facility] Address [address] [place] [address] Care Team Providers Care Power Tool Repairer Name Role Phone Maribel Brian MD Primary Care Provider [phone] Reason for Referral * Consult (Routine) - Closed Specialty Diagnoses / Procedures Referred By Contac t Referred To Contact Diagnoses Primary osteoarthritis involving multiple joints Mita Fung MD [address] [place] [phone] Referral ID Status Reason Start Date Expiration Date V isits Requested Visits Authorized [id number] Closed Specialty Services Required 12/13/2015 1 1 Question Answer Reason for Request: 1st CMC joint pain, end stage OA. Reason for Visit * Reason Comments Joint Pain Follow up on left th umb joint pain. Encounter Details Date Type Department Care Team (Latest Contact Info) Description 12/13/2015 11:30 EDT Office Visit [facility] Rheumatology [facility] [address] [place], [place] [address] Mita Fung MD [address] [place] [phone] Primary osteoarthritis involving multiple joints (Primary Dx) Social History Tobacco Use Types Packs/Day Years [...] on file documented as of this encounter Last Filed Vital Signs Vital Sign Reading Time Taken Comments Blood Pressure 110/70 12/13/2015 1137 EDT Pulse 80 12/13/2015 1137 EDT Temperature - - Respiratory Rate - - Oxygen Saturation - - Inhaled Oxygen Concentration - - Weight 81.1 kg (178 lb 12.8 oz) 12/13/2015 1137 EDT Height - - Body Mass Index 30.69 08/02/2015 0939 EST documented in this encounter Patient Instructions * Patient Instructions* Mita Fung MD - 12/13/2015 12:25 EDT 1. Please see Dr Burciaga. [phone]. 2. Please try topical voltaren gel on your painful joint up to three times daily. Stop if you develop a rash. Follow up as needed. documented in this encounter Ordered Prescriptions Prescription Sig Dispensed Refills Start Date End Da te diclofenac sodium 1 % gel Apply 2 grams to hand joint as needed for pain up to three times daily. 1 Tube 3 12/13/2015 documented in this encounter Progress Notes * Mita Fung MD - 12/13/2015 1156 EDT Subjective: Patient ID: Julieta Mccoy is an 50 y.o. female being seen today in follow up. Chief Complaint Patient presents with ??? Joint Pain Follow up on left thumb joint pain. 1. Osteoarthritis 2. Elevated PANTERA 1:80 HPI Seen in initial consultation in July 2015 at which time we injected her left 1st CMC joint. Thishelped for months. Completely resolved the pain directly after injection. Pain returned transientlyin September, but only with strong use. In past few days, pain more noticeable, but not as bad as initially. Would like another injection. Surgery in July to removed two kidney stones. Surgery a few weeks ago to remove an ovary and fallopian tubes. Still recovering. No swollen joints. Has not been taking celebrex as she did not think it helped much. Given tramadolfor joint pain, but has not needed it. Took two doses last week for post surgical pain. Uses ibuprofen as needed - more recently since surgery, generally not daily. Has not tried topical voltaren gelto date. Seen in the past by Dr Armando Burciaga for right wrist fracture. Liked him and trusted him. Per hiswebsite, he specializes in hands. Patient Active Problem List Diagnosis ??? Primary osteoarthritis involving multiple joints ??? Kidney stone History reviewed. No pertinent past medical history. Past Surgical History Procedure Laterality Date ??? Kidney stone surgery ??? Partial hysterectomy 2008 ??? Wrist fracture surgery Right 2006 fell on ice, shattered bone. plates and screws in place ??? Cataract removal with implant Bilateral 2006 Family History Problem Relation Age of Onset ??? Cancer Mother metastatic colon cancer - age 61 ??? Stroke Father ??? Cancer Father spine, unclear primary ??? Cancer Sister throat - history of smoking ??? High Blood Pressure Brother stents Social History Substance Use Topics ??? Smoking status: Never Smoker ??? Smokeless tobacco: Never Used ??? Alcohol Use: Yes Comment: less than one per month Current Outpatient Prescriptions on File Prior to Visit Medication Sig Dispense Refill ??? cyanocobalamin 500 mcg tablet Take 500 mcg by mouth daily ??? HYALURONATE SODIUM (HYALURONIC ACID, SODIUM, ORAL) Take 30 mg by mouth daily ??? [place]-3 Fatty Acids 300 mg capsule Take by mouth ??? traMADol (ULTRAM) 50 mg tablet Take 50 mg by mouth every 6 hours ??? Potassium Citrate 10 mEq (1,080 mg) tablet extended release Sig: Take 10 mEq by mouth 2 times daily. ??? Multivitamins with Minerals tablet tablet Sig: Take 1 Tab by mouth daily. ??? TURMERIC ROOT EXTRACT ORAL Sig: Take 450 mg by mouth daily. ??? PSYLLIUM HUSK (FIBER-CAPS ORAL) Sig: Take by mouth 2 times daily. ??? L.ACID/L.CASEI/B.BIF/B.SAMSON/FOS (PROBIOTIC BLEND ORAL) Sig: Take by mouth daily. ??? cholecalciferol, Vitamin D3, 1,000 unit tablet Sig: Take 1,000 Units by mouth 5 times daily. No Known Allergies ROS - See HPI See attached - reviewed. Objective: BP 110/70 mmHg Pulse 80 Wt 81.103 kg (178 lb 12.8 oz) Physical Exam Musculoskeletal: Left 1st CMC joint grinds and pops with ROM, tender, no swelling. Hand films from [facility] on 05/04/15 showed Severe degenerative changes in 1st CMC joint of left hand. 05/10/15 PANTERA titer 1:80 with diffuse and speckled pattern. ESR 22 (<20) RF <20 Assessment: Osteoarthritis. Left 1st CMC joint heavily involved. Responded to injection in July, but pain returning. Will try topical NSAID and refer to orthopedics for possible repeat injection and discussion about assisted options. Plan: (M15.0) Primary osteoarthritis involving multiple joints (primary encounter diagnosis) Plan: AMB CONS/FOLLOW UP ORTHOPEDICS 1. Please see Dr Burciaga. [phone]. 2. Please try topical voltaren gel on your painful joint up to three times daily. Stop if you develop a rash. Follow up as needed. Mita Fung MD ??? diclofenac sodium 1 % gel Sig: Apply 2 grams to hand joint as needed for pain up to three times daily. Dispense: 1 Tube Refill: 3 * Anastasia Bhandari LPN - 12/13/2015 1153 EDT REVIEW OF SYSTEMS: Yes No Yes No Fever X Joint pain x Weight gain or loss pounds (lbs) Duration of AM joint stiffness varies hours / min Eye pain or dryness X Numbness/tingling X Mouth or nose sores X Heart burn / Nausea X Chest pain X Diarrhea x Shortness of Breath X Blood in stool X Cough X Burning on urination X Skin rash X Hand/Foot color change in cold X documented in this encounter Plan of Treatment Scheduled Referrals Name Type Priority Associated Diagnoses Orde r Schedule AMB CONS/FOLLOW UP ORTHOPEDICS Outpatient Referral Routine Primary osteoarthritis involving multiple joints Ordered: 12/13/2015 documented as of this encounter Visit Diagnoses Diagnosis Primary osteoarthritis involving multiple joints- Primary documented in this encounter Discontinued Medications Medication Sig Discontinue Reason Start Date End Da te [id number] 149-HYAL (GLUCOS CHOND CPLX ADVANCED ORAL) Take by mouth Patient Stopped Taking 12/12 celecoxib (CELEBREX) 100 mg capsule Take 200 mg by mouth 2 times daily 12/13/2015 documented as of this encounter Historical Medications * This list may reflect changes made after this encounter. Medication Sig Dispensed Refills Start Date End Date cholecalciferol, Vitamin D3, 1,000 unit tablet Take 1,000 Units by mouth 5 times daily. L.ACID/L.CASEI/B.BIF/B.SAMSON /FOS (PROBIOTIC BLEND ORAL) Take by mouth daily. PSYLLIUM HUSK (FIBER-CAPS ORAL) Take by mouth 2 times daily. TURMERIC ROOT EXTRACT ORAL Take 450 mg by mouth daily. Multivitamins with Minerals tablet tablet Take 1 Tab by mouth daily. Potassium Citrate 10 mEq (1,080 mg) tablet extended release Take 10 mEq by mouth 2 times daily. added in this encounter Care Teams Power Tool Repairer Relationship Specialty Start Date End Date Maribel Brian MD [address] [place] [address] PCP - General 12/12/15 documented as of this encounter
--- OUTSIDE RECORDS SUMMARY | 2024-03-27 15:22 | XMS_ITS | Encounter Summary ---
Author Organization [facility] [place] [address] Care Team Providers Care Test Driller Name Role Phone Maribel Brian MD Primary Care Provider [phone] Encounter Details Date Type Department Care Team (Late st Contact Info) Description 12/15/2022 Ancillary Procedure [place] [id number] Chandrakant Mendez MD [facility] [place] [address] Social History Tobacco Use Types Packs/Day Years [...] on file documented as of this encounter Procedures Procedure Name Priority Date/Time Associated Diagnosis Comments FILM LIBRARY STORAGE ONLY DX SHOULDER Routine 12/15/2022 12:00 AM EDT documented in this encounter Results * Film Library- Storage Only DX Shoulder (12/15/2022 12:00 AM EDT) Narrative [facility] - 09/02/2023 4:30 PM EST This exam is auto-finalizing. It's purpose is for storage only. Chandrakant Mendez MD IMG FILM LIBRARY ORD ERABLES [facility] [place], [place] documented in this encounter Visit Diagnoses Not on filedocumented in this encounter Care Teams Test Driller Relationship Specialty Start Date End Date Maribel Brian MD [address] [place] [address] PCP - General Family Medicine 05/15/19 08/18/23 documented as of this encounter
--- OUTSIDE RECORDS SUMMARY | 2024-03-27 15:22 | XMS_ITS | Encounter Summary ---
Author Organization [facility] Address [address] [place] [address] Care Team Providers Care Loss Prevention Coordinator Name Role Phone Unknown, Provider Primary Care Provider [phone] Encounter Details Date Type Department Care Team (Late st Contact Info) Description 01/16/2005 Results Only [facility] - [facility] [address] [place] [address] Dinora Land MD [address] [place] [address] [place] [address] Social History Tobacco Use Types Packs/Day Years Used Date Smoking Tobacco: Never Assessed Sex and Gender Information Value Date Recorded Sex Assigned at Not on file Gender Identity Not on file Sexual Orientation Not on file documented as of this encounter Plan of Treatment Not on file documented as of this encounter Procedures Procedure Name Priority Date/Time Associated Diagnosis Comments CYTOPATHOLOGY Routine 01/16/2005 0:00 EDT documented in this encounter Results * CYTOPATHOLOGY (01/16/2005 0:00 EDT) Pathology Report: CYTOPATHOLOGY REPORT Reports generated via electronic interface contain original data; however they are lacking the format of the original report. Caution should be taken when reading/interpreti ng unformatted reports. Name: ? JULIETA MCCOY ? Accession #: ? [id number] : ? 1965 (Age: 39) ??F ?Collect Date: ? 01/16/2005 Location: ? [facility] ? Receive Date: ? 01/18/2005 Provider: ?DINORA ALND MD Copy to: ? Specimen/Source: ?ThinPrep Pap Test, Cervix/Endocervix Last Menstrual Period: ? 12/26/04 Hormonal/Contracep tive Status: ? Yes: Sprintec Other: ? HPVA - HPV testing requested if ASC-US on the current ThinPrep Pap test. ? SPECIMEN ADEQUACY ? Satisfactory for Evaluation - transformation zone component present GENERAL CATEGORIZATION ? Negative for Intraepithelial Lesion or Malignancy ? Document reviewed and electronically signed by: ? RICHAR Aviles(ASCP) ? Report Date: ??01/29/2005 09:30 End of Report DWAYNE KELSEY 01/16/2005 01/18/2005 Dinora Land MD PATHOLOGY ORDERABLES Performing Organization Address City/State/[facility] Co de Phone Number DWAYNE KELSEY [address] [place] [address] documented in this encounter Visit Diagnoses Not on filedocumented in this encounter Care Teams Loss Prevention Coordinator Relationship Specialty Start Date End Date Unknown, Provider, PCP - General 11/29/08 06/12/15 documented as of this encounter
--- OUTSIDE RECORDS SUMMARY | 2024-03-27 15:22 | XMS_ITS | Referral Summary ---
Author Organization [facility] Address [address] [place] [address] Care Team Providers Care Dry Heat Cabinet Attendant Name Role Phone Maribel Brian MD Primary Care Provider [phone] Allergies No known active allergies Medications Medication Sig Dispensed Refills Start Date End Date Status traMADol (ULTRAM) 50 mg tablet Take 50 mg by mouth every 6 hours Active cyanocobalamin 500 mcg tablet Take 500 mcg by mouth daily Active [place]-3 Fatty Acids 300 mg capsule Take by [...] involving multiple joints 12/13/2015 Kidney stone 12/13/2015 Social History Tobacco Use Types Packs/Day Years Used Date Smoking Tobacco: Never Smokeless Tobacco: Never Alcohol Use Standard Drinks/Week Comments Yes 0 (1 standard drink = 0.6 oz pur e alcohol) less than one per month Sex and Gender Information Value Date Recorded Sex Assigned at Not on file Gender Identity Not on file Sexual Orientation Not on file Last Filed Vital Signs Vital Sign Reading [...] 30.69 08/02/2015 0939 EST Plan of Treatment Not on file Care Teams Dry Heat Cabinet Attendant Relationship Specialty Start Date End Date Maribel Brian MD [address] [place] [phone] PCP - General 12/12/15
--- OUTSIDE RECORDS SUMMARY | 2024-03-27 15:22 | XMS_ITS | Encounter Summary ---
Author Organization [facility] Address [address] [place] [address] Care Team Providers Care Bag Sewer Name Role Phone Maribel Brian MD Primary Care Provider [phone] Reason for Visit * Reason Onset Date Comments Update 08/03/2015 Encounter Details Date Type Department Care Team (Late st Contact Info) Description 08/03/2015 Telephone [facility] Rheumatology [address] [address] Mita Fung MD [address] [place] [phone] Update Social History Tobacco Use Types Packs/Day Years Used Date Smoking Tobacco: Never Sex and Gender Information Value Date Recorded Sex Assigned at Not on file Gender Identity Not on file Sexual Orientation Not on file documented as of this encounter Miscellaneous Notes * Telephone Encounter - Ale Arthur MD - 08/08/2015 1527 EST Seeing derm for dry skin and skin irregularity. Informed pt does not sound suspicious. * Telephone Encounter - Chavez Mason - 08/03/2015 0921 EST Pt. had appt. with Dr. Fung 08/02/15. Pt. stated she received steroid injection in her thumb, and after 1 day it has already improved significantly. Pt. was asked at appointment if she had any skin issues, and was distracted and forgot to discuss. Pt. said she has seen a senior sales engineer for her skin issues, but they stated her condition was normal, but pt. is unsure as they just started within the last few years. Pt. said there is a granularity texture to the skin on her neck/chest, and also renetta has small skin bumps on her back; derm said this is a thickening of her skin. Pt. would like toknow if this is a normal part of the aging process, or a symptom. Please call. documented in this encounter Plan of Treatment Not on file documented as of this encounter Visit Diagnoses Not on filedocumented in this encounter Care Teams Bag Sewer Relationship Specialty Start Date End Date Maribel Brian MD [address] [place] [address] PCP - General 06/13/15 11/20/15 documented as of this encounter
--- OUTSIDE RECORDS SUMMARY | 2024-03-27 15:22 | XMS_ITS | Encounter Summary ---
Author Organization [facility] [place] Address [address] [place] [address] Care Team Providers Care Through Operator Name Role Phone Unavailable Primary Care Provider Unavailabl e Encounter Details Date Type Department Care Team (Late st Contact Info) Description 11/25/2008 Orders Only [facility] Services - [facility] [place] [address] [place] [address] Dinora Land MD [address] [place] [address] [place] [address] Social History Tobacco Use Types Packs/Day Years Used Date Smoking Tobacco: Never Assessed Sex and Gender Information Value Date Recorded Sex Assigned at Not on file Gender Identity Not on file Sexual Orientation Not on file documented as of this encounter Plan of Treatment Not on file documented as of this encounter Procedures Procedure Name Priority Date/Time Associated Diagnosis Comments SURGICAL PATHOLOGY Routine 11/25/2008 0:00 EDT documented in this encounter Results * SURGICAL PATHOLOGY (11/25/2008 0:00 EDT) Pathology Report: SURGICAL PATHOLOGY REPORT ? Reports generated via electronic interface contain original data; ? however they are lacking the format of the original report. ? Caution should be taken when reading/interpreting unformatted reports. ? Name: ? DARIUS, JULIETA ? Accession #: ? [id number] ? : ? 1965 (Age: 43) ??F ? Collect Date: ? 11/25/2008 ? Location: ? [facility] ? Receive Date: ? 11/26/2008 ? Provider: DINORA LAND MD ? Copy to: KAREEN MATUTE MD ? Final Pathologic Diagnosis: ? Uterus and cervix, hysterectomy: ? 1. ?Cervix: ? - Mild chronic cervicitis. ? 2. ?? Endometrium: ?- Predominantly basalis. ? 3. ?? Myometrium: ?- Leiomyomata, intramural and subserosal, with hydropic changes (1.7 cm in greatest dimension). ?See comment. ? 4. ?Serosa: ? - No specific pathologic features. ? Comment: ? Drill Operator Pneumatic sections have been reviewed at the intradepartmental ? consultation conference. ??(Dr. Paul)/jessican ? Document reviewed and electronically signed by: ? Christelle Paul MD ? Report ??Date: 11/29/2008 16:18 ? By the signature above, the attending physician certifies that he/she has ? personally conducted a gross and/or microscopic examination of the described ? specimens and rendered or confirmed the above diagnosis. ? Specimen(s) Received: ? Uterus and fibroids, cervix ? Clinical History: ? Uterine fibroids increasing in size over last 6 yrs, double in size since ?? '05 and increasing discomfort ? Gross Description: ? Received in formalin labelled Darius, Julieta and uterus, fibroids/cervix is a 964 gram uterus and cervix received in eleven pieces that has an aggregate dimension of 21.0 x 14.0 x 9.0 cm. ??No adnexal structures are present. ??The ? uterine fundus is intact with a cornu to cornu distance of 4.5 cm. ??The serosa ?? of the uterine corpus is haynes-brown and glistening. ??The endometrium is ? haynes-yellow, soft, and with focal hemorrhage. ??Upon sectioning, the thickness of the endometrium is 0.3 cm. ??The myometrium is approximately 1.8 cm thick, ? haynes-pink, and of a finely trabecular pattern. ??Within the myometrium there are ?? multiple small, well-circumscribed, white-haynes, whorled nodules found within the subserosal and intramural location. ??They range in size from 1.7 cm in diameter to 0.4 cm in diameter. ??Additionally, eight of the fragments consist of entirely white-haynes, whorled and rubbery soft tissue fragments. ??Sectioning reveals a ? pink-haynes, whorled appearance without areas of hemorrhage and many soft areas. ?? The cervix has a probe patent os and unattached 2.0 x 1.7 x 0.5 cm portion of ?? haynes-pink, folded vaginal mucosa. ??The ectocervical surface is haynes-white, ? granular, and focally roughened. ??The endocervical canal is brown-yellow with a trabecular appearance. ??Drill Operator Pneumatic sections are submitted as follows: ? BLOCK TIM ? A1, A2 ?Full thickness endomyometrium (orientation not possible) ? A3 ?Small intramural and subserosal nodules and myometrium ? A4, A5 ?Sections of granular areas found in large fragments ? A6, A7 ?Firmer areas of large fragments ? A8 ?Cervix with vaginal mucosa ? A9 ?Opposite edge of cervix ? (M. Frankie)/kmm ? End of Report ? [facility] 11/25/2008 11/26/2008 9:0 4 EDT Dinora Land MD PATHOLOGY ORDERABLES [facility] [address] [place] [address] documented in this encounter Visit Diagnoses Not on filedocumented in this encounter
--- OUTSIDE RECORDS SUMMARY | 2024-03-27 15:22 | XMS_ITS | Encounter Summary ---
Author Organization [facility] [place] [address] Care Team Providers Care Heavy Equipment Service Manager Name Role Phone Maribel Brian MD Primary Care Provider [phone] Encounter Details Date Type Department Care Team (Late st Contact Info) Description 03/04/2023 Ancillary Procedure [place] [phone] Chandrakant Mendez MD [facility] [place] [address] Social History Tobacco Use Types Packs/Day Years [...] Associated Diagnosis Comments FILM LIBRARY STORAGE ONLY MR UPPER EXTREMITY Routine 03/04/2023 12:00 AM EDT documented in this encounter Results * Film Library- Storage Only MR Upper Extremity (03/04/2023 12:00 AM EDT) Narrative [facility] - 09/02/2023 4:31 PM EST This exam is auto-finalizing. It's purpose is for storage only. Chandrakant Mendez MD IMG FILM LIBRARY ORD ERABLES [facility] [place], [place] documented in this encounter Visit Diagnoses Not on filedocumented in this encounter Care Teams Heavy Equipment Service Manager Relationship Specialty Start Date End Date Maribel Brian MD [address] [place] [address] PCP - General Family Medicine 05/15/19 08/18/23 documented as of this encounter
--- OUTSIDE RECORDS SUMMARY | 2024-03-27 15:22 | XMS_ITS | Encounter Summary ---
Author Organization [facility] Address [address] [place] [address] Care Team Providers Care Clinical Radiologist Name Role Phone Unknown, Provider Primary Care Provider [phone] Encounter Details Date Type Department Care Team (Late st Contact Info) Description 01/11/2004 Results Only [facility] - [facility] [address] [place] [address] Dinora Land MD [address] [place] [address] [place] [address] Social History Tobacco Use Types Packs/Day Years Used Date Smoking Tobacco: Never Assessed Sex and Gender Information Value Date Recorded Sex Assigned at Not on file Gender Identity Not on file Sexual Orientation Not on file documented as of this encounter Plan of Treatment Not on file documented as of this encounter Procedures Procedure Name Priority Date/Time Associated Diagnosis Comments CYTOPATHOLOGY Routine 01/11/2004 0:00 EDT documented in this encounter Results * CYTOPATHOLOGY (01/11/2004 0:00 EDT) Pathology Report: CYTOPATHOLOGY REPORT Reports generated via electronic interface contain original data; however they are lacking the format of the original report. Caution should be taken when reading/interpreti ng unformatted reports. Name: ? JULIETA MCCOY ? Accession #: ? [id number] : ? 1965 (Age: 38) ??F ?Collect Date: ? 01/11/2004 Location: ? [facility] ? Receive Date: ? 01/13/2004 Provider: ?DINORA LAND MD Copy to: ? Specimen/Source: ?ThinPrep Pap Test, Cervix/Endocervix Last Menstrual Period: ? 12/27/2003 ? SPECIMEN ADEQUACY ? Satisfactory for Evaluation - transformation zone component present GENERAL CATEGORIZATION ? Negative for Intraepithelial Lesion or Malignancy ? Document reviewed and electronically signed by: ? RICHAR Gonzalez(ASCP) ? Report Date: ??01/18/2004 13:13 End of Report [facility] 01/11/2004 01/13/2004 Dinora Land MD PATHOLOGY ORDERABLES [facility] [address] [place] [address] documented in this encounter Visit Diagnoses Not on filedocumented in this encounter Care Teams Clinical Radiologist Relationship Specialty Start Date End Date Unknown, Provider, PCP - General 11/29/08 06/12/15 documented as of this encounter
--- OUTSIDE RECORDS SUMMARY | 2024-03-27 15:22 | XMS_ITS | Encounter Summary ---
Author Organization [facility] Address [address] [place] [address] Care Team Providers Care Studio Control Operator Name Role Phone Unknown, Provider Primary Care Provider [phone] Encounter Details Date Type Department Care Team (Late st Contact Info) Description 02/12/2006 Results Only [facility] [place] - [place] conversion [address] [place] [address] Dinora Land MD [address] [place] [address] [place] [address] Social History Tobacco Use Types Packs/Day Years Used Date Smoking Tobacco: Never Assessed Sex and Gender Information Value Date Recorded Sex Assigned at Not on file Gender Identity Not on file Sexual Orientation Not on file documented as of this encounter Plan of Treatment Not on file documented as of this encounter Procedures Procedure Name Priority Date/Time Associated Diagnosis Comments CYTOPATHOLOGY Routine 02/12/2006 0:00 EDT documented in this encounter Results * CYTOPATHOLOGY (02/12/2006 0:00 EDT) Pathology Report: CYTOPATHOLOGY REPORT Reports generated via electronic interface contain original data; however they are lacking the format of the original report. Caution should be taken when reading/interpreti ng unformatted reports. Name: ? JULIETA MCCOY ? Accession #: ? [id number] : ? 1965 (Age: 40) ??F ?Collect Date: ? 02/12/2006 Location: ? [facility] ? Receive Date: ? 02/13/2006 Provider: ?DINORA LAND MD Copy to: ? Specimen/Source: ?ThinPrep Pap Test, Cervix/Endocervix, processed on [employer] ThinPrep Imaging System, with manual evaluation Last Menstrual Period: ? 01/21/06 Other: ? HPVA - HPV testing requested if ASC-US on the current ThinPrep Pap test. ? SPECIMEN ADEQUACY ? Satisfactory for Evaluation - transformation zone component absent GENERAL CATEGORIZATION ? Negative for Intraepithelial Lesion or Malignancy ? Document reviewed and electronically signed by: ? RICHAR Gonzalez(ASCP) ? Report Date: ??02/15/2006 12:00 End of Report [facility] 02/12/2006 02/13/2006 Dinora Land MD PATHOLOGY ORDERABLES Performing Organization Address City/State/[facility] Co de Phone Number [facility] [address] [place] [address] documented in this encounter Visit Diagnoses Not on filedocumented in this encounter Care Teams Studio Control Operator Relationship Specialty Start Date End Date Unknown, Provider, PCP - General 11/29/08 06/12/15 documented as of this encounter
--- OUTSIDE RECORDS SUMMARY | 2024-03-27 15:22 | XMS_ITS | Encounter Summary ---
Author Organization [facility] Address [facility] [place] [address] Care Team Providers Care Home Teaching Gr[employer] 7 And 8 Teacher Name Role Phone Maribel Brian MD Primary Care Provider [phone] Reason for Visit * Reason Comments Post Op Encounter Details Date Type Department Care Team (Late st Contact Info) Description 07/23/2019 12:00 PM EST Office Visit [place] [address] Francis Dupont MD [facility] [place] [address] Post-operative state Social History Tobacco Use Types Packs/Day Years [...] Sign Reading Time Taken Comments Blood Pressure 120/84 07/23/2019 12:02 PM EST Pulse 86 07/23/2019 12:02 PM EST Temperature 37.2 ??C (99 ??F) 07/23/2019 12:02 PM EST Respiratory Rate 15 07/23/2019 12:02 PM EST Oxygen Saturation 93% 07/23/2019 12:02 PM EST Inhaled Oxygen Concentration - - Weight 85.3 kg (188 lb 0.8 oz) 07/23/2019 12:02 PM EST Height 165.5 cm (5' 5.16) 07/23/2019 12:02 PM Chalo BARKLEY Body Mass Index 31.14 07/23/2019 12:02 PM EST documented in this encounter Progress Notes * Francis Dupont MD - 07/23/2019 12:00 PM EST Division [place] [address] Postoperative Visit: Patient Active Problem List Diagnosis Code ??? Adnexal mass N94.89 Subjective: Julieta Mccoy returns to the office today for her postoperative visit. On 06/26/2019 she underwent a laproscopic removal of a pelvic mass . Her postoperative course was uncomplicated. She has been doingwell since surgery and has no issues. she does have a naval suture that she would like me to look at. There has been no fevers, redness or incisional drainage. She never took any narcotic pain medications and is having regular bowel movements. She has since stopped all pain meds after about 2 weeks. Her energy level is improving and she is eating well. She denies fevers, chills, dysuria, incisional concerns, abdominal pain, vaginal bleeding, nausea, vomiting or diarrhea. Objective: Vitals: 07/23/19 1202 BP: 120/84 BP Location (NBP): Left arm Patient Position: Sitting Pulse: 86 Resp: 15 Temp: 37.2 ??C (99 ??F) TempSrc: Temporal SpO2: 93% Weight: 85.3 kg (188 lb 0.8 oz) Height: 165.5 cm (5' 5.16) Body mass index is 31.14 kg/m??. Body surface area is 1.98 meters squared. Physical Exam Constitutional: She appears well-developed and well-nourished. No distress. Abdominal: Soft. She exhibits no distension. There is no tenderness. No hernia. Incisions are healing well. There is a protuberant suture at the umbilicus which is removed with scissors. Musculoskeletal: She exhibits no edema or tenderness. Neurological: Coordination normal. Skin: Skin is warm. No rash noted. No erythema. No pallor. Psychiatric: She has a normal mood and affect. Her behavior is normal. Surgical Pathology: Surgical Pathology DIAGNOSIS Right fallopian tube and ovary (salpingo-oophorectomy): ?1. Ovarian follicular cysts. ?2. Surface adhesions. ?3. Dilated fallopian tube (hydrosalpinx). ?4. Paratubal cysts. Assessment and Plan: Julieta Mccoy is a 53 y.o. with what has thankfully returned as a benign hydrosalpinx. She is doing well postoperatively and is advised that she may resume full activities at 6 weeks postoperatively. Ireviewed her pathology with her and have given her copies of her pathology report and operative note for her records. Given the benign nature of her disease, she thankfully does not require any further gynecologic oncology care and is kindly referred back to her usual providers for ongoing care. FRANCIS DUPONT MD documented in this encounter Plan of Treatment Not on file documented as of this encounter Visit Diagnoses Diagnosis Post-operative state Other postprocedural status documented in this encounter Care Teams Home Teaching Grades 7 And 8 Teacher Relationship Specialty Start Date End Date Maribel Brian MD [address] [place] [address] PCP - General Family Medicine 05/15/19 08/18/23 documented as of this encounter
--- OUTSIDE RECORDS SUMMARY | 2024-03-27 15:22 | XMS_ITS | Encounter Summary ---
Author Organization [facility] Address [address] [place] [address] Care Team Providers Care Accountant Certified Public Name Role Phone Maribel Brian MD Primary Care Provider [phone] Reason for Visit * Reason Onset Date Comments Pharmacy 12/13/2015 Encounter Details Date Type Department Care Team (Late st Contact Info) Description 12/13/2015 Telephone [facility] Rheumatology & Immunology - [facility] [address] [place] [address] Mita Fung MD [address] [place] [phone] Pharmacy Social History Tobacco Use Types Packs/Day Years [...] encounter Miscellaneous Notes * Telephone Encounter - Peyton Weber RN - 12/13/2015 1300 EDT Pharmacy asking for permission to put Brand GENOVEVA on rx as generic is unavailable currently. * Telephone Encounter - Claire Tovar - 12/13/2015 1236 EDT Reason for Call: Pharmacy Summary/Symptoms: Pharmacy calling with question on script for diclofenac sodium 1%. Please call Claire Tovar 12/13/2015 12:36 documented in this encounter Plan of Treatment Not on file documented as of this encounter Visit Diagnoses Not on filedocumented in this encounter Care Teams Accountant Certified Public Relationship Specialty Start Date End Date Maribel Brian MD [address] [place] [id number] PCP - General 12/12/15 documented as of this encounter
--- OUTSIDE RECORDS SUMMARY | 2024-03-27 15:22 | XMS_ITS | Encounter Summary ---
[place] [address] Care Team Providers Care Workflow Developer Name Role Phone Maribel Brian MD Primary Care Provider [phone] Reason for Visit * Auth/Cert Specialty Diagnoses / Procedures Referred By Contac t Referred To Contact Diagnoses Right Ovarian Mass Procedures PRO LAP, RMV ADNEXAL STRUCTURE LAPAROSCOPY, REMOVAL OF ADNEXA (WRVU 11.35) Referral ID Status Reason Start Date Expiration Date Visits Re quested Visits Authorized [id number] 1 1 Encounter Details Date Type Department Care Team (Late st Contact Info) Description 06/26/2019 10:56 AM EST Anesthesia [place] [address] Octavio York MD [facility] [place] [address] Eve Ku CRNA [facility] [place] [address] Anesthesia Record Procedure Summary Procedure Name Responsible Anesthesiologist Anesthesia Start Time Anesthesia Stop Time LAPAROSCOPY, REMOVAL OF ADNEXA (WRVU 11.35) Octavio York MD 06/26/19 1056 06/26/19 1331 Events Date Time Event Comment 06/26/2019 1022 1056 Start 1100 AN Verify 1100 An Start Data 1106 An Induction 1111 An Intubation 1112 Anesthesia Ready 1149 Procedure Start 1200 Break/Relief In Kayy Buchanan CRNA 1229 Break/Relief Out 1231 Quick Note Surgeons adriano newberry on cuff. BP inaccurate. 1316 Extubation/LMA Out 1331 an stop data In SD 39/ repor t to RAMY Bobby> VSS. Initially phse 1, transitioned quickly to phase 2. Comfortable, VSS 1331 Recovery or ICU Handoff Carmina ent care was transferred to the destination unit staff after review of the patient's medical history, current anesthetic/surgical status and plan, according to the Provider Handoff Checklist. 1331 Stop Meds Name Total Midazolam 2 mg fentaNYL 100 mcg IV Lidocaine 50 mg Propofol 150 mg Rocuronium 60 mg PHENYLephrine 640 mcg ePHEDrine 5 mg Ondansetron 8 mg Dexamethasone 8 mg Neostigmine 5 mg Glycopyrrolate 0.7 mg Dexmedetomidine 20 mcg Propofol INF 362.92 mg PHENYLephrine INF 1,340 mcg Ketorolac 30 mg lactated ringers infusion 900 mL * Agents Name O2 Air N2O Sevoflurane (et) * Blood No blood administrations on file. Lines, Drains, and Airways Type Details Placement Removal Urethral Catheter 06/26/19; 1138; Need for intraoperative urine output monitoring; Physician order; indwelling double lumen catheter; latex, silicone coated; 14; inserted at this facility; 1; 5; 5; other (see comments) (under anesthesia); leg bag to dependent drainage; urethral catheter removed; D/C AT END OF CASE 06/26/19 1138 by Kaitlynn Bhatti RN ETT Mask Ventilation: Ad junct (2); ETT Type: Cuffed, Oral; ETT Size: 6.5 mm; Indirect: Video; Notes: Asleep, Pre-O2, Stylette; Attempts: 1; Laryngoscopy Grade: 1; ETT Placement Verified By: Auscultation, Capnometry, Visual; Inserted by: Latisha Mack APRN (ICU); Removal Date: 06/26/19; Removal Time: 1316 06/26/19 1111 by Eve Ku CRNA 06/26/19 1316 by Eve Ku CRNA (RETIRED) Peripheral IV Line - Single Lumen 06/26/19; 1120; metacarpal vein (top of hand), right; 18 gauge; no longer indicated, removed per policy/procedure, catheter/device intact; 06/26/19; 1450 06/26/19 1120 by Eve Ku, TECHNICAL ILLUSTRATOR 06/26/19 1450 by Kanu Jackson RN NG/OG Tube 06/26/19; 1120; orogastric; 18 Fr; mouth; 06/26/19; 1311 06/26/19 1120 by Eve Ku, TECHNICAL ILLUSTRATOR 06/26/19 1311 by Eve Ku CRNA Incision 06/26/19; 1150; abdo men; laparoscopic punctures (specify); 3 trocar sites; 03/19/22 (LDA cleanup utility RA#[id number]); 1715 (LDA cleanup utility RA#[id number]) 06/26/19 1150 by Kaitlynn Bhatti RN 03/19/22 1715 by Shaka Davies documented in this encounter Social History Tobacco Use Types Packs/Day Years Used Date Smoking Tobacco: Never Smokeless Tobacco: Never Alcohol Use Standard Drinks/Week Comments Yes 0 (1 standard drink = 0.6 oz pur e alcohol) rare Sex and Gender Information Value Date Recorded Sex Assigned at Not on file Gender Identity Not on file Sexual Orientation Not on file documented as of this encounter OR Notes * Anesthesia Postprocedure Evaluation - Octavio York MD - 06/26/2019 5:51 PM EST Department of Anesthesiology Post-procedure Note Patient: Julieta Mccoy Procedure Summary Date: 06/26/19 Room / Location: [address] MAIN OR Anesthesia Start: 1056 Anesthesia Stop: 1331 Procedure: LAPAROSCOPY, REMOVAL OF ADNEXA (WRVU 11.35) (N/A ) Diagnosis: (Right Ovarian Mass) Surgeon: Haylee Vizcarra MD Responsible Provider: Octavio York MD Anesthesia Type: general ASA Status: 3 All Anesthesia Providers: Anesthesiologist: Octavio York MD TECHNICAL ILLUSTRATOR: Eve Ku CRNA Vitals Value Taken Time BP 122/81 06/26/2019 2:30 PM Temp 36.1 ??C (97 ??F) 06/26/2019 1:21 PM Pulse 88 06/26/2019 2:34 PM Resp 15 06/26/2019 2:34 PM SpO2 97 % 06/26/2019 2:34 PM Pain Level 3 06/26/2019 2:30 PM Vitals shown include unvalidated device data. Patient Location: PACU/SDP Level of Consciousness: Awake and Alert Pain Management: Satisfactory Analgesia PONV: None Cardiovascular Status: At Baseline Respiratory Status: At Baseline Postoperative Fluid Status: Intravascular EUvolemia Possible Anesthetic Complications: NONE apparent at time of evaluation Final Primary Anesthesia Type: General (The anesthetic type performed was the same as planned.) Comments: Ready for discharge home No PONV Happy with perioperative care * Anesthesia Preprocedure Evaluation - Octavio York MD - 06/25/2019 4:24 PM EST Pre-Anesthesia Evaluation for: Julieta Mccoy a 53 y.o. female. Procedure(s): LAPAROSCOPY, REMOVAL OF ADNEXA (WRVU 11.35) There are no active problems to display for this patient. Past Medical History: Diagnosis Date ??? Bowel disease IBS-D, treated with metamucil ??? Chronic pain osteoarthritis in big toes, hands ??? Joint pain ??? Motion sickness gets some car sickness, very easily gets motions sickness ??? Nephrolithiasis ??? Post-operative nausea and vomiting after wrist surgery, severe nausea/vomiting ??? Transfusion history during hysterectomy about 10 yrs ago Past Surgical History: Procedure Laterality Date ??? CATARACT REMOVAL ??? HYSTERECTOMY, TOTAL ABDOMINAL 2009 ??? JOINT REPLACEMENT left thumb ??? SALPINGECTOMY Bilateral ??? SALPINGO-OOPHORECTOMY Left Social History Tobacco Use ??? Smoking status: Never Smoker ??? Smokeless tobacco: Never Used Substance Use Topics ??? Alcohol use: Yes Alcohol/week: 0.0 standard drinks Comment: rare Social History Substance and Sexual Activity Drug Use Never No Known Allergies Medications: MAR and/or home medications have been reviewed. Physical Exam: There were no vitals filed for this visit. There is no height or weight on file to calculate BMI. Airway Assessment: Mallampati: III TM distance: <3 FB Neck ROM: full Cardiovascular Assessment: cardiovascular exam normal Pulmonary Assessment: pulmonary exam normal Dental Assessment: Misc Assessment: Anesthesia Plan: ASA 3 general, with a(n) intravenous induction Extremely pleasant 86kg 53yo F presents for laparoscopy and removal of adnexal mass. Prior hysterectomy, during which she required transfusion. Non-smoker with Good exercise tolerance. Prior anesthetic reaction - prolonged emergence - subsequently no problems. I am a redhead PONV - successfully managed with prophylaxis per patient, OA, IBD, nephrolithiasis Appropriately fasted No formal exercise but is generally quite active around the home Denies CP/SOB/CA Potentially challenging airway due to combination of small mouth, Large tongue, short RMD - plan elective VLS Region - Other Informed Consent: Anesthetic plan and risks discussed with patient and spouse. Plan discussed with TECHNICAL ILLUSTRATOR. PAT Clinic Note documented in this encounter Plan of Treatment Not on file documented as of this encounter Visit Diagnoses Not on filedocumented in this encounter Administered Medications Inactive Administered Medications - up to 3 most recent administrations Medication Order MAR Action Action Date Dose Rate Site dexamethasone (DECADRON) injection PRN, Starting on Sat06/26/19 at 1119, Until Sat06/26/19 at 1331, Anesthesia Intra-op, Routine Given 06/26/2019 11:19 AM EST 8 mg dexmedetomidine (PRECEDEX) injection PRN, Starting on Sat06/26/19 at 1123, Until Sat06/26/19 at 1331, Anesthesia Intra-op, Routine Given 06/26/2019 11:54 AM EST 8 mcg Given 06/26/2019 11:52 AM EST 4 mcg Given 06/26/2019 11:23 AM EST 8 mcg ePHEDrine 5 mg/mL multi-dose injection PRN, Starting on Sat06/26/19 at 1211, Until Sat06/26/19 at 1331, Anesthesia Intra-op, Routine Given 06/26/2019 12:11 PM EST 5 mg fentaNYL 50 mcg/mL multi-dose injection PRN, Starting on Sat06/26/19 at 1107, Until Sat06/26/19 at 1331, Anesthesia Intra-op, Routine Given 06/26/2019 11:16 AM EST 75 mcg Given 06/26/2019 11:07 AM EST 25 mcg glycopyrrolate (ROBINUL) multi-dose injection PRN, Starting on Sat06/26/19 at 1309, Until Sat06/26/19 at 1331, Anesthesia Intra-op, Routine Given 06/26/2019 1:09 PM EST 0.7 mg ketorolac (TORADOL) injection PRN, Starting on Sat06/26/19 at 1309, Until Sat06/26/19 at 1331, Anesthesia Intra-op, Routine Given 06/26/2019 1:09 PM EST 30 mg lactated ringers infusion 1,000 mL, at 100 mL/hr, Intravenous, CONTINUOUS, Starting on Sat06/26/19 at 1030, Until Sat06/26/19 at 1503, Day of Surgery (Day of Procedure) New Bag 06/26/2019 10:56 AM EST lidocaine (PF) (XYLOCAINE) 100 mg/5 mL (2 %) injection PRN, Starting on Sat06/26/19 at 1106, Until Sat06/26/19 at 1331, Anesthesia Intra-op, Routine Given 06/26/2019 11:06 AM EST 50 mg midazolam (PF) (VERSED) multi-dose injection PRN, Starting on Sat06/26/19 at 1150, Until Sat06/26/19 at 1331, Anesthesia Intra-op, Routine Given 06/26/2019 11:50 AM EST 2 mg neostigmine (BLOXIVERZ) injection PRN, Starting on Sat06/26/19 at 1309, Until Sat06/26/19 at 1331, Anesthesia Intra-op, Routine Given 06/26/2019 1:09 PM EST 5 mg ondansetron (ZOFRAN) injection PRN, Starting on Sat06/26/19 at 1120, Until Sat06/26/19 at 1331, Anesthesia Intra-op, Routine Given 06/26/2019 1:01 PM EST 4 mg Given 06/26/2019 11:20 AM EST 4 mg PHENYLephrine (KERI-SYNEPHRINE) 20 mg in sodium chloride 250 mL (standard ADULT & Pedi greater than 20kg) infusion CONTINUOUS PRN, Starting on Sat06/26/19 at 1236, Until Sat06/26/19 at 1331, Anesthesia Intra-op, Routine Rate/Dose Change 06/26/2019 12:58 PM EST 40 mcg/min 30 mL/hr Rate/Dose Change 06/26/2019 12:51 PM EST 60 mcg/min 45 mL/ hr New Bag 06/26/2019 12:36 PM EST 40 mcg/min 30 mL/hr PHENYLephrine in NS (PF) (KERI-SYNEPHRINE) 0.8 mg/10 mL (80 mcg/mL) multi-dose injection Syrg PRN, Starting on Sat06/26/19 at 1130, Until Sat06/26/19 at 1331, Anesthesia Intra-op, Routine Given 06/26/2019 12:50 PM EST 80 mcg Given 06/26/2019 12:33 PM EST 80 mcg Given 06/26/2019 12:31 PM EST 80 mcg propofol (DIPRIVAN) 10 mg/mL bolus injection (Anesthesia) PRN, Starting on Sat06/26/19 at 1106, Until Sat06/26/19 at 1331, Anesthesia Intra-op Given 06/26/2019 11:06 AM EST 150 mg propofol (DIPRIVAN) infusion CONTINUOUS PRN, Starting on Sat06/26/19 at 1117, Until Sat06/26/19 at 1331, Anesthesia Intra-op, Routine New Bag 06/26/2019 11:17 AM EST 50 mcg/kg/min 25.3 mL/hr rocuronium (ZEMURON) multi-dose injection PRN, Starting on Sat06/26/19 at 1106, Until Sat06/26/19 at 1331, Anesthesia Intra-op, Routine Given 06/26/2019 12:29 PM EST 10 mg Given 06/26/2019 11:06 AM EST 50 mg documented in this encounter Care Teams Workflow Developer Relationship Specialty Start Date End Date Maribel Brian MD [address] [place] [address] PCP - General Family Medicine 05/15/19 08/18/23 documented as of this encounter
--- OUTSIDE RECORDS SUMMARY | 2024-03-27 15:22 | XMS_ITS | Encounter Summary ---
[place] [address] Care Team Providers Care Rfid Systems Architect Name Role Phone JooMarleneMeimireya RAMOS Primary Care Provider [phone] Reason for Referral * Consultation (Routine) - Authorized Specialty Diagnoses / Procedures Referred By Contac t Referred To Contact Orthopaedics Diagnoses Traumatic tear of left rotator cuff, unspecified tear extent, initial encounter LEFT SHOULDER DYSFUNCTION S/P ARTHROSCOPY W/ PARTIAL RTC REPAIR (SUPRA AND INTRASPINATUS) BICEPS TRANSPOSITION TENODESIS Parth Adan MD [address] [place] [address] [facility] [address] [place] [id number] Referral ID Status Reason Start Date Expiration Date Visits Requested Visits Authorized [id number] Authorized Second Opinion PCP Updated and/or Approved 08/19/2023 08/18/2024 6 6 Encounter Details Date Type Department Care Team (Latest Contact Info) Description 08/19/2023 Transcribe Orders eDH Incoming Referrals [phone] Parth Adan MD [address] [place], [place] [id number] Traumatic tear of left rotator cuff, unspecified tear extent, initial encounter Social History Tobacco Use Types Packs/Day [...] as of this encounter Plan of Treatment Scheduled Referrals Name Type Priority Associated Diagnoses Orde r Schedule Referral to Orthopaedics Outpatient Referral Routine Traumatic tear of left rotator cuff, unspecified tear extent, initial encounter Ordered: 08/19/2023 documented as of this encounter Visit Diagnoses Diagnosis Traumatic tear of left rotator cuff, unspecified tear extent, initial encounter documented in this encounter Care Teams Rfid Systems Architect Relationship Specialty Start Date End Date Mei Ge APRN [address] [place] [address] PCP - General Family Medicine 08/19/23 documented as of this encounter
--- OUTSIDE RECORDS SUMMARY | 2024-03-27 15:22 | XMS_ITS | Encounter Summary ---
[place] [address] Care Team Providers Care Power Chisel Operator Name Role Phone Mei Ge APRN Primary Care Provider Encounter Details Date Type Department Care Team (Latest Contact Info) Description 08/28/2023 Travel Social History Tobacco Use Types Packs/Day Years [...] on filedocumented in this encounter Care Teams Power Chisel Operator Relationship Specialty Start Date End Date Mei Ge APRN [address] [place] [address] PCP - General Family Medicine 08/19/23 documented as of this encounter
--- OUTSIDE RECORDS SUMMARY | 2024-03-27 15:22 | XMS_ITS | Encounter Summary ---
Author Organization [facility] [place] [address] Care Team Providers Care Slipcover Cutter Name Role Phone JooMarlene ramseymireya RAMOS Primary Care Provider [phone] Reason for Visit * Reason Onset Date Comments Questions 08/30/2023 Encounter Details Date Type Department Care Team (Late st Contact Info) Description 08/30/2023 Telephone [place] [address] Chandrakant Mendez MD [facility] [place] [address] Questions Social History Tobacco Use Types Packs/Day Years [...] encounter Miscellaneous Notes * Telephone Encounter - Vy [place] - 09/03/2023 2:22 PM EST Patient was seen 09/03/23 * Telephone Encounter - Edilson Ugalde - 08/30/2023 3:11 PM EST Name of person calling : Patient Facility person calling from: n/a Who is the provider: n/a Have you had surgery: N/A If yes : DOS: Surgeon: Is there a new injury: N/A If yes, how did the new injury occur?: Best contact number: [phone] What is the question: Patient states she's coming from 3 hours away and wants to know if her appointment with Dr. Mendez on 09/03 could be done as a TOV instead. She will drive up if she needs to but wanted to check if that would be an option. Please let her know. documented in this encounter Plan of Treatment Not on file documented as of this encounter Visit Diagnoses Not on filedocumented in this encounter Care Teams Slipcover Cutter Relationship Specialty Start Date End Date Mei Ge APRN [address] [place] [address] PCP - General Family Medicine 08/19/23 documented as of this encounter
--- OUTSIDE RECORDS SUMMARY | 2024-03-27 15:22 | XMS_ITS | Encounter Summary ---
Author Organization [facility] Address [address] [place] [address] Care Team Providers Care Family Specialist Name Role Phone Maribel Brian MD Primary Care Provider [phone] Encounter Details Date Type Department Care Team (Latest Contact Info) Description 11/10/2015 13:09 EDT - 11/10/2015 23:59 EDT Hospital Encounter [address] [address] Unknown, Provider, Discharge Disposition: Home or Self Care Social History Tobacco Use Types Packs/Day Years Used Date Smoking Tobacco: Never Sex and Gender Information Value Date Recorded Sex Assigned at Not on file Gender Identity Not on file Sexual Orientation Not on file documented as of this encounter Medications at Time of Discharge Medication Sig Dispensed Refills Start Date End Date cyanocobalamin 500 mcg tablet Take 500 mcg by mouth daily HYALURONATE SODIUM (HYALURONIC ACID, SODIUM, ORAL) Take 30 mg by mouth daily [place]-3 Fatty Acids 300 mg capsule Take by mouth traMADol (ULTRAM) 50 mg tablet Take 50 mg by mouth every 6 hours celecoxib (CELEBREX) 100 mg capsule Take 200 mg by mouth 2 times daily 12/13/2015 [id number] 149-HYAL (GLUCOS CHOND CPLX ADVANCED ORAL) Take by mouth 016 documented as of this encounter Discharge Disposition Disposition Code Departure Means Destination Home or Self Intermediate documented in this encounter Plan of Treatment Not on file documented as of this encounter Visit Diagnoses Not on filedocumented in this encounter Care Teams Family Specialist Relationship Specialty Start Date End Date Maribel Brian MD [address] [place] [address] PCP - General 06/13/15 11/20/15 documented as of this encounter
--- OUTSIDE RECORDS SUMMARY | 2024-03-27 15:22 | XMS_ITS | Encounter Summary ---
Author Organization [facility] Address [address] [place] [address] Care Team Providers Care Butt Sawyer Name Role Phone Unknown, Provider Primary Care Provider [phone] Encounter Details Date Type Department Care Team (Late st Contact Info) Description 02/13/2007 Results Only [facility] [address] [place] [address] Dinora Land MD [address] [place] [address] [place] [address] Social History Tobacco Use Types Packs/Day Years Used Date Smoking Tobacco: Never Assessed Sex and Gender Information Value Date Recorded Sex Assigned at Not on file Gender Identity Not on file Sexual Orientation Not on file documented as of this encounter Plan of Treatment Not on file documented as of this encounter Procedures Procedure Name Priority Date/Time Associated Diagnosis Comments CYTOPATHOLOGY Routine 02/13/2007 0:00 EDT documented in this encounter Results * CYTOPATHOLOGY (02/13/2007 0:00 EDT) Pathology Report: CYTOPATHOLOGY REPORT Reports generated via electronic interface contain original data; however they are lacking the format of the original report. Caution should be taken when reading/interpreti ng unformatted reports. Name: ? JULIETA MCCOY ? Accession #: ? [id number] : ? 1965 (Age: 41) ??F ?Collect Date: ? 02/13/2007 Location: ? [facility] ? Receive Date: ? 02/17/2007 Provider: ?DINORA LAND MD Copy to: ? Specimen/Source: ?ThinPrep Pap Test, Cervix/Endocervix, processed on [employer] ThinPrep Imaging System, with manual evaluation Last Menstrual Period: ? 01/24/07 Hormonal/Contracep tive Status: ? Yes: Autumn Other: ? HPVA - HPV testing requested if ASC-US on the current ThinPrep Pap test. ? SPECIMEN ADEQUACY ? Satisfactory for Evaluation - transformation zone component present GENERAL CATEGORIZATION ? Negative for Intraepithelial Lesion or Malignancy ? Document reviewed and electronically signed by: ? RICHAR Mina(ASCP) ? Report Date: ??02/20/2007 15:53 End of Report [facility] KELSEY 02/13/2007 02/17/2007 Dinora Land MD PATHOLOGY ORDERABLES Performing Organization Address [facility]/State[facility] Phone Number [facility] [address] [place] [address] documented in this encounter Visit Diagnoses Not on filedocumented in this encounter Care Teams Butt Sawyer Relationship Specialty Start Date End Date Unknown, Provider, PCP - General 11/29/08 06/12/15 documented as of this encounter
--- OUTSIDE RECORDS SUMMARY | 2024-03-27 15:22 | XMS_ITS | Encounter Summary ---
Author Organization [facility] Address [address] [place] [address] Care Team Providers Care Liaison Inspection Laboratory Assistant Name Role Phone Maribel Brian MD Primary Care Provider [phone] Reason for Visit * Reason Comments Joint Pain Bilateral hand and k nee pain for several months Encounter Details Date Type Department Care Team (Latest Contact Info) Description 08/02/2015 9:30 EST Office Visit [facility] Rheumatology [address] [id number] Mita Fung MD [address] [place] [phone] Primary osteoarthritis, unspecified site (Primary Dx); Pain in joint, pain in unspecified joint Social History Tobacco Use Types Packs/Day Years Used Date Smoking Tobacco: Never Sex and Gender Information Value Date Recorded Sex Assigned at Not on file Gender Identity Not on file Sexual Orientation Not on file documented as of this encounter Last Filed Vital Signs Vital Sign Reading Time Taken Comments Blood Pressure 110/70 08/02/2015 0939 EST Pulse 88 08/02/2015 0939 EST Temperature - - Respiratory Rate - - Oxygen Saturation - - Inhaled Oxygen Concentration - - Weight 80.8 kg (178 lb 3.2 oz) 08/02/[address] Height 162.6 cm (5' 4) 08/02/2015 0939 EST Body Mass Index 30.59 08/02/2015 0939 EST documented in this encounter Patient Instructions * Patient Instructions* Ale Arthur MD - 08/13/2015 12:39 EST We have given you corticosteroid injection in your hand. You feel a little sore for next 48 hours, you can try icing ,resting and tylenol for it. documented in this encounter Progress Notes * Ale Arthur MD - 08/02/2015 0957 EST DIVISION OF RHEUMATOLOGY AND CLINICAL IMMUNOLOGY CONSULT NOTE Date of Service: 08/02/2015 Patient seen in consultation at the request of Maribel Brian MD for rheumatological evaluation for Chief Complaint Patient presents with ??? Joint Pain Bilateral hand and knee pain for several months,elevated PANTERA HISTORY OF PRESENT ILLNESS: Ms. Julieta Mccoy is a 49 y.o. female who presents today for rheumatological evaluation for elevated PANTERA titer of 1:80 with diffuse and speckled pattern. She has history of chronic knee, left 1st CMC, and shoulder pains for 5 years. Was seen by fixer supervisor Dr Márquez in 2010 and was diagnosed with osteoarthritis. Has been overall feeling all right until March 2015 when she noticed her left toe locked on her causing her to limp on the right side while walking downhill, then noticed sudden pain in her right knee on the medial joint line with pain especially going down the stairs. Did not have any locking or buckling. Has also been noticing left 1st CMC pain since 6 months She was seen by her PCP in April when she had xray of her hands which showed left CMC and MCP OA and normal xray of bilateral knees. She also had PANTERA showing 1:80 with diffuse and speckled pattern and ESR OF 22(<20). She was started on celebrex 200 mg once daily and then JUAN J-e 200 mg. Not using celebrex currently. States her knee pain has resolved however hand pain is still persistent in the left CMC joint with locking on abduction. AM stiffness lasting 2 hours. Denies any redness or swelling. Sees a chiropractor once a week. Denies any fever, fatigue, rash, photosensitivity, oral ulcers, headache, numbness tingling, sicca or raynaud's symptoms, back pain. REVIEW OF SYSTEMS: Symptom Yes No Symptom Yes No Fever X Morning stiffness x Fatigue X Numbness/ tingling X Night sweats X Headaches X Weight change X Muscle weakness X Eye discomfort X Dysuria X Mouth/nose sores X Urinary frequency X Chest pain X Hematuria X Palpitations X Trouble sleeping X Dyspnea X Anxiety X Cough X Depression X Nausea/ vomiting X Change in mood X Abdominal pain X Skin rash/ changes X Blood in stools X Sun induced rash X Diarrhea X Raynaud's X Constipation X Itching X Joint pain x Hair loss X Muscle pain X Other X PMH PSH OA No past surgeries. ALLERGIES No Known Allergies SOCIAL HISTORY FAMILY HISTORY History Substance Use Topics ??? Smoking status: Never Smoker ??? Smokeless tobacco: Not on file ??? Alcohol Use: Not on file No family history on file. MEDICATIONS: Current Outpatient Prescriptions Medication Sig Dispense Refill ??? cyanocobalamin 500 mcg tablet Take 500 mcg by mouth daily ??? [id number]-AVVG 149-HYAL (GLUCOS CHOND CPLX ADVANCED ORAL) Take by mouth ??? HYALURONATE SODIUM (HYALURONIC ACID, SODIUM, ORAL) Take 30 mg by mouth daily ??? [place]-3 Fatty Acids 300 mg capsule Take by mouth OBJECTIVE: Blood pressure 110/70, pulse 88, height 162.6 cm (64), weight 80.831 kg (178 lb 3.2 oz). General: No acute distress. Alert, fully oriented, pleasant, conversant. HEENT: Conjunctivae/corneas clear. Pupils equal, Sclerae anicteric. Mucus membranes moist; oropharynx clear. Neck supple, symmetrical, trachea midline Lungs: Clear to auscultation bilaterally. Heart: Regular rate and rhythm, S1, S2 present, no murmur Abdomen: Soft, non-tender, non-distended. Extremities: Extremities without cyanosis or edema. Skin: No rashes or lesions Musculoskeletal: Spine: No significant tenderness. Normal range of motion of the spine. Shoulder/Elbow: No significant tenderness, swelling, effusions, erythema or warmth is present. Appropriate range of motion present. Wrist/Hand: Bilateral Heber[place] and Izaiah's nodes. Left CMC squaring with crepitus on abduction with tenderness. No significant swelling, effusions, erythema or warmth is present. Appropriate rangeof motion present. Hips/Knee: No significant tenderness, swelling, effusions, erythema or warmth is present. Appropriate range of motion present. Ankle/Foot: No significant tenderness, swelling, effusions, erythema or warmth is present. Appropriate range of motion present. Labs: 05/10/15 PANTERA titer 1:80 with diffuse and speckled pattern. ESR 22 (<20) RF <20 IMPRESSION / PLAN: Ms. Julieta Mccoy is a 49 y.o.female with presenting with arthralgias, low positive PANTERA, mildly elevated ESR, negative RF. Per history and examination pt does not currently have any autoimmune condition. Her elevated PANTERA appears non specific. Informed that could be positive in 3-5 % of general population. Her hand pain is secondary to OA . Currently she does not have any pain in her knees. Since she has a good response to celebrex as needed, would recommend continuing it. We injected her left CMCjoint with kenalog which she tolerated well. Plan: Advised about resting and icing of the left hand for next 24-48 hours after injection. Continue with celebrex 200 mg once daily as needed. PATIENT INSTRUCTIONS: We have given you corticosteroid injection in your hand. You feel a little sore for next 48 hours, you can try icing ,resting and tylenol for it. Continue with celebrex 200 mg once daily for pain as needed. Patient verbalizes understanding and agrees with plan. There are no barriers to understanding/learning. Ale Arthur MD 08/02/2015 I spent a total of 60 minutes in face to face time with this patient and 30 minutes of that time was spent in counseling and coordination of care as described in the progress note. I was precepted by Mita Fung MD who was present during evaluation and examination. Patient verbalizes understanding and agrees with plan. There are no barriers to understanding/learning. Ale Arthur MD 08/02/2015 Attestation statement: I saw and examined the patient with the resident/fellow. I agree with the findings and plan of care documented in the resident's/fellow's note. I was present for the entire procedure. Mita Fung MD Rheumatology Outpatient Procedure Note Title of Procedure: Injection left CMC Date Performed: 08/02/2015 Time Performed: 9:40 am Performed by: Ale Arthur MD Indications and/or Provisional Diagnosis: Pain in joint. Condition: The condition of the patient was Good Consent: Verbal consent was obtained after patient was informed of the risks, benefits and alternatives. Final verification was Performed. Time out performed. Type of Anesthesia or Sedation: Local Estimated Blood Loss: The estimated blood loss was None Procedure Technique: Site Marked. The area was prepped with alcohol. Cutaneous anesthesia and Intra- articular anesthesiawas attained using Ethyl Chloride and Lidocaine 1% w/out epinephrine. Synovial fluid was not removed. Injection of 8 mg of Kenalog (triamcinolone acetonide and 0.1 cc lidocaine 1% without epinephrine was performed. Post Procedure Diagnosis and Findings: 1. Primary osteoarthritis, unspecified site 2. Pain in joint, pain in unspecified joint Complications: None Ale Arthur MD 08/02/2015 14:35 * ThonyRaminonYOMI - 08/02/2015 0950 EST REVIEW OF SYSTEMS: Yes No Yes No Fever X Joint pain X Weight gain or loss pounds (lbs) Duration of AM joint stiffness 2 hours Eye pain or dryness X Numbness/tingling X Mouth or nose sores X Heart burn / Nausea X Chest pain X Diarrhea X Shortness of Breath X Blood in stool X Cough X Burning on urination X Skin rash X Hand/Foot color change in cold X RAPID3 SCORE Over the last week were you able to: a. Dress yourself including tying shoelaces / doing buttons? 1 0 = Without ANY difficulty 1 = With SOME difficulty 2 = With MUCH difficulty 3 = UNABLE to do Conversion scale: 1=0.3 2=0.7 3=1.0 4=1.3 5=1.7 6=2.0 7=2.3 8=2.7 9=3.0 10=3.3 11=3.7 12=4.0 13=4.3 14=4.7 15=5.0 16=5.3 17=5.7 18=6.0 19=6.3 20=6.7 21=7.0 22=7.3 23=7.7 24=8.0 25=8.3 26=8.7 27=9.0 28=9.3 29=9.7 30=10 b. Get in and out of bed? 0 c. Lift a full cup or glass to your mouth? 0 d. Walk outdoors on flat ground? 0 e. Wash and dry your entire body? 0 f. Bend down to picking machine operator clothing from the floor? 0 g. Turn regular faucets on and off? 0 h. Get in and out of a car, bus, train or airplane? 0 i. Walk two miles or three kilometers, if you wish? 1 j. Participate in recreational activities/sports, if you wish? 1 TOTAL = 2 FUNCTION (FN) (Use conversion scale) = 0.7 (Use conversion scale above) Get a good night???s sleep? 1 0 = Without ANY difficulty (0.0) 1 = With SOME difficulty (1.1) 2 = With MUCH difficulty (2.2) 3 = UNABLE to do (3.3) Deal with feelings of anxiety or being nervous? 1 Deal with feelings of depression or feeling blue? 1 PAIN (PN) = 5.5 0-10 PATIENT GLOBAL (PTGE) = 2.0 0-10 RAPID3 SCORE (FN + PN + PTGE) = 7.7 0-30 HS: > 12 MS: 6.1 - 12 LS: 3.1 - 6 NR: ? 3 documented in this encounter Plan of Treatment Not on file documented as of this encounter Visit Diagnoses Diagnosis Primary osteoarthritis, unspecified site- Primary Pain in joint, pain in unspecified joint documented in this encounter Historical Medications * This list may reflect changes made after this encounter. Medication Sig Dispensed Refills Start Date End Date HYALURONATE SODIUM (HYALURONIC ACID, SODIUM, ORAL) Take 30 mg by mouth daily [place]-3 Fatty Acids 300 mg capsule Take by mouth cyanocobalamin 500 mcg tablet Take 500 mcg by mouth daily traMADol (ULTRAM) 50 mg tablet Take 50 mg by mouth every 6 hours EVVURSFF-FPEVOTL-DBXR 149-HYAL (GLUCOS CHOND CPLX ADVANCED ORAL) Take by mouth 016 celecoxib (CELEBREX) 100 mg capsule Take 200 mg by mouth 2 times daily 12/13/2015 added in this encounter Care Teams Liaison Inspection Laboratory Assistant Relationship Specialty Start Date End Date Maribel Brian MD [address] [place] [id number] PCP - General 06/13/15 11/20/15 documented as of this encounter
--- OUTSIDE RECORDS SUMMARY | 2024-03-27 15:22 | XMS_ITS | Encounter Summary ---
Author [facility] [place] [address] Care Team Providers Care Strike Operations Officer Name Role Phone Mei RAMOS Primary Care Provider Reason for Visit * Reason Comments Establish Care L RTC TEAR, S/P RTC REPAIR DOI: 12/15/2022 DOS: 03/21/2023 (MIKO * Consultation (Routine) - Authorized Specialty Diagnoses / Procedures Referred By Lisa t Referred To Contact Orthopaedics Diagnoses Traumatic tear of left rotator cuff, unspecified tear extent, initial encounter LEFT SHOULDER DYSFUNCTION S/P ARTHROSCOPY W/ PARTIAL RTC REPAIR (SUPRA AND INTRASPINATUS) BICEPS TRANSPOSITION TENODESIS Parth Adan MD [address] [address] [facility] [address] [place] [phone] Referral ID Status Reason Start Date Expiration Date Visits Requested Visits Authorized [id number] Authorized Second Opinion PCP Updated and/or Approved 08/19/2023 08/18/2024 6 6 Encounter Details Date Type Department Care Team (Late st Contact Info) Description 09/03/2023 10:00 AM EST Office [place] [phone] Chandrakant Mendez MD [facility] [place] [address] Chronic pain in left shoulder Social History [...] Sign Reading Time Taken Comments Blood Pressure - - Pulse - - Temperature - - Respiratory Rate - - Oxygen Saturation - - Inhaled Oxygen Concentration - - Weight 83.9 kg (185 lb) 09/03/2023 10:11 AM EST Height 162.6 cm (5' 4) 09/03/2023 10:11 AM EST Body Mass Index 31.76 09/03/2023 10:11 AM EST documented in this encounter Progress Notes * Eunice Dawson PA - 09/03/2023 10:00 AM EST Images from the original note were not included. Patient Name: Julitea Mccoy AGE: 57 y.o. MR#: [id number] Date of Visit: 09/03/2023 Date of Injury/Onset: Summer 2022 Chief Complaint: left shoulder pain History of Present Illness: Ms. Mccoy is a 57-year-old ambidextrous female with history of hypothyroidism, presenting for second opinion for left rotator cuff repair. She reports that on December 15, she had a fall at home with a blow to her left elbow. She did not injure the elbow, however she did sustain a large rotator cuff tear. She underwent surgery with Dr. Lombardo on March 21. On March 30,she read tore her supraspinatus and ruptured her biceps tendon. She was seen back by Dr. Adan who recommended reconstruction of the supraspinatus tendon. However, she reports that this was denied byinsurance, and now she is presenting for second opinion. At this time, she endorses lateral shoulder pain, and feels that her biceps cramping is the worst of her symptoms. She also endorses a feelingof instability, and feels that her shoulder is most unstable superiorly and anteriorly. She has no known dislocations or subluxations. She has tried activity modifications, and did physical therapy for greater than 6 weeks until discovery of her repeat rotator cuff tear. At this time, she feels that her pain is somewhat manageable, however it does bother her, and she has had to take oxycodone in order to sleep. 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 Her hobbies include kayaking, and other outdoor activities that she has not been able to perform since her injury. Medications and Allergies were reviewed in eD-H ROS: Pertinent items are noted in HPI. Past Medical Hx: Past Medical History: Diagnosis Date Bowel disease IBS-D, treated with metamucil Chronic pain osteoarthritis in big toes, hands Joint pain Motion sickness gets some car sickness, very easily gets motions sickness Nephrolithiasis Post-operative nausea and vomiting after wrist surgery, severe nausea/vomiting Transfusion history during hysterectomy about 10 yrs ago Past Surgical Hx: Past Surgical History: Procedure Laterality Date CATARACT REMOVAL HYSTERECTOMY, TOTAL ABDOMINAL 2009 JOINT REPLACEMENT left thumb PRO LAP, RMV ADNEXAL STRUCTURE N/A 06/26/2019 LAPAROSCOPY, REMOVAL OF ADNEXA (WRVU 11.35) performed by Haylee Vizcarra MD at [facility] MAIN OR SALPINGECTOMY Bilateral SALPINGO-OOPHORECTOMY Left Family Hx: Family History Problem Relation Age of Onset Alcohol Use Disorder Sister Anesthesia Reaction Mother Postoperative Nausea and Vomiting Mother Social Hx: Social History Tobacco Use Smoking Status Never Smokeless Tobacco Never Social History Substance and Sexual Activity Alcohol Use Yes Alcohol/week: 0.0 standard drinks of alcohol Comment: rare Objective: Ht 162.6 cm (5' 4) Wt 83.9 kg (185 lb) LMP 07/23/2008 BMI 31.76 kg/m?? GENERAL: Well appearing, appropriate NEUROVASCULAR: Sensation intact to light touch in the Left upper extremity. Warm and well perfused hand. SKIN: No significant abrasions or lesions about the shoulder. MUSCULOSKELETAL: Left Shoulder Examination Visible abnormality: No Scapulothoracic Rhythm: Normal Rotator Cuff Atrophy: No Tenderness to palpation: No Palpable crepitus: No Range of motion Left Forward Elevation: 140 w pain at end range External Rotation: 0, passive to 45 Internal Rotation: L1 Strength Testing: Abduction: 4+/5 External Rotation: 4/5 Resisted Internal Rotation: 5/5 Rotator Cuff Testing Empty Can/Riaz's: Positive Bear Hug: Negative Biceps/Labrum Groove TTP: Negative Speeds: Negative Ashburn's: Negative Resisted Thrower's: Negative AC Joint TTP: Negative Cross-body: Negative Impingement Neer's: Negative Hawkin's: Negative Instability: Anterior Shift: 0 (Normal) Posterior Shift: 0 (Normal) Sulcus Sign: Negative Apprehension Test: Negative Relocation Test: Negative Cervical Range of motion: Normal Questionnaires: 08/28/2023 General Health, Prior Treatments, PreExisting Condition, Health Habits, About You PROMIS-10 General Health Good PROMIS-10 Quality of Life Very Good PROMIS-10 Physical Health Good PROMIS-10 Mental Health Good PROMIS-10 Social Activity Very Good PROMIS-10 Everyday Activities Mostly PROMIS-10 Pain 3 PROMIS-10 Fatigue Moderate PROMIS-10 Social Roles Very Good PROMIS-10 Anxious or Depressed Rarely PROMIS PHYSICAL SCORE (range 16-68) 44.9 PROMIS MENTAL SCORE (range 21-68) 50.8 Treatments Tried Heat and ice therapy Brace Physical therapy Chiropractic or manipulation Medicines applied on the skin (topical) Oral natural supplements (e.g chondroitin and glucosamine) Acetaminophen (e.g. Tylenol) Over the counter anti-inflammatory drugs (e.g Advil, Aspirin, Aleve) Prescribed anti-inflammatory drugs Tramadol (i.e pain medication like Ultram) Narcotics/opiods (Percocet, codeine, hydrocodone) Prior surgery for this problem Alzheimers or dementia No Cirrohosis or liver disease No HIV/AIDS No Pain in more than one joint in legs Yes Back or neck pain Yes Heart attack No Heart failure No Unclog/bypass leg arteries No Stroke, blood clot, TIA No Asthma No Emphysema, chronic bronchities, or COPD No Stomach ulcers/peptic ulcer disease No Diabetes No Poor kidney function No Rheumatic condtions No Cancer No Weight (lbs) 185 Height (feet) 5 feet Height (Inches) 4 BMI 31.75 (Obese) Ever used tobacco products No Ever used alcoholic beverages Yes Alcohol frequency Once or twice WHO - Alcohol Advice 2 (You are at low risk of health and other problems from your current pattern of use.) Live Alone Yes Marital situation Schooling Some college or 2 - year degree Combined Household Income $35,000 to less than $50,000 # People Supported 1 Azerbaij[place], , No, not Azerbaijani// Race White Health Literacy Extremely Currently working Yes Current job situation Part-time for other reasons 08/28/2023 [facility] Response ASES VAS-LEFT 3 ASES ADL-LEFT ARM 13 ASES LEFT ARM 56.67 Assessment/Plan: Julieta is a 57 y.o. year old female with failed left rotator cuff repair. Now having worsening lateral shoulder pain. On exam, she has full range of motion. However, she is weak in external rotation, and has significant pain in forward flexion. I do not feel that she is unstable on exam. Previously, she was counseled that she was a candidate for SCR, however she reports that this was denied by insurance. Given she has failed rotator cuff repair, now she likely has an irreparable rotator cuff tear. Dr. Mendez did discuss the option of tendon transfer with the patient. Please see his note for further discussion around this conversation. At this time, patient elected to consider the tendon transfer and will reach out if she would like to pursue the surgery. Questions solicited and answered. The patient verbalized understanding and agreement of the plan, she knows to contact us if they have any other questions or concerns. Eunice Dawson PA-c Department of Orthopaedic Surgery [facility] The above documentation was partially completed using Whisper voice recognition software. * Chandrakant Mendez MD - 09/03/2023 10:00 AM EST Orthopedic surgery attending note: I have seen this patient in conjunction with the physician printer assistant. I agree with the note and plan as documented. Please see their note for further documentation. In brief, this is a 57-year-old female with a history of a rotator cuff repair approximately 6 months ago. Fortunately this went on to early failure. MRI imaging does confirm retear of the supraspinatus with retraction to the glenoid or beyond. Sagittal T1 imaging demonstrates significant atrophy and fatty infiltration of both the supraspinatus and infraspinatus. Please see full clinical exam documented elsewhere. Of note, patient did have remarkable weakness with external rotation and elevation. We had a long discussion about treatment options at this point including ongoing nonoperative versus operative treatment. Non-operative treatment would include ongoing home exercises and activitiesas tolerated. Operative intervention for her would be a lower trapezius tendon transfer. We discussed that the primary goal of this to be increased strength and range of motion, with likely some improvement in her low- grade pain. We discussed the long recovery afterwards including 8 weeks of immobilization and 8 months of physical therapy. We demonstrated the surgery on an anatomic model. We discussed the risk and benefits. The patient will return home and consider her options. If she like to move forward with surgery, she will be in contact with the office. documented in this encounter Plan of Treatment Not on file documented as of this encounter Visit Diagnoses Diagnosis Chronic pain in left shoulder Pain in joint, shoulder region documented in this encounter Care Teams Strike Operations Officer Relationship Specialty Start Date End Date Mei Ge APRN [address] [place] [address] PCP - General Family Medicine 08/19/23 documented as of this encounter
--- OUTSIDE RECORDS SUMMARY | 2024-03-27 15:22 | XMS_ITS | Encounter Summary ---
Author Organization [facility] Address [address] [place] [address] Care Team Providers Care Electric Well Logging Operator Name Role Phone Unknown, Provider Primary Care Provider [phone] Encounter Details Date Type Department Care Team (Late st Contact Info) Description 02/16/2008 Before PRISM Converted Visit (Maple) [facility] - Maple conversion [address] [place] [address] Lena Menard, GAMBLING FLOOR SUPERVISOR Social History Tobacco Use Types Packs/Day Years Used Date Smoking Tobacco: Never Assessed Sex and Gender Information Value Date Recorded Sex Assigned at Not on file Gender Identity Not on file Sexual Orientation Not on file documented as of this encounter Plan of Treatment Not on file documented as of this encounter Procedures Procedure Name Priority Date/Time Associated Diagnosis Comments CYTOPATHOLOGY Routine 02/16/2008 0:00 EDT documented in this encounter Results * CYTOPATHOLOGY (02/16/2008 0:00 EDT) Pathology Report: CYTOPATHOLOGY REPORT ? Reports generated via electronic interface contain original data; ? however they are lacking the format of the original report. ? Caution should be taken when reading/interpreti ng unformatted reports. ? Name: ? DAHIANA, JULIETA ? Accession #: ? [id number] ? : ? 1965 (Age: 42) ??F ?Collect Date: ? 02/16/2008 ? Location: ? [facility] ? Receive Date: ? 02/17/2008 ? Provider: ?LENA M ISAAC GAMBLING FLOOR SUPERVISOR ? Copy to: ? Specimen/Source: ?ThinPrep Pap Test, Cervix/Endocervix, processed on Cytyc ThinPrep Imaging System, with manual evaluation ? Last Menstrual Period: ? 7/6/08 ? Hormonal/Contracep tive Status: ? Oral contraceptives ? Previous Gynecologic Pathology: ? Yes: ? endocx cells - cervix anteverted secondary to fibroid uterus. ? SPECIMEN ADEQUACY ? Satisfactory for Evaluation ? - transformation zone component present ? GENERAL CATEGORIZATION ? Negative for Intraepithelial Lesion or Malignancy ? Document reviewed and electronically signed by: ? Reshma Blevinslogg, CT(ASCP) ? Report Date: ??02/19/2008 12:57 ? End of Report ? DWAYNE KELSEY 02/16/2008 02/17/2008 Lena Menard NP PATHOLOGY ORDERABLES Performing Organization Address City/State/[facility] Co de Phone Number DWAYNE KELSEY [address] [place] [address] documented in this encounter Visit Diagnoses Not on filedocumented in this encounter Care Teams Electric Well Logging Operator Relationship Specialty Start Date End Date Unknown, Provider, PCP - General 11/29/08 06/12/15 documented as of this encounter
--- OUTSIDE RECORDS SUMMARY | 2024-03-27 15:22 | XMS_ITS | Encounter Summary ---
Author Organization [facility] Address [address] [place] [address] Care Team Providers Care Social Media Analyst Name Role Phone Maribel Matute MD Primary Care Provider Encounter Details Date Type Department Care Team (Late st Contact Info) Description 11/10/2015 Results Only [facility] [phone] Dinora Land MD [address] [place] [address] [place] [address] Social History Tobacco Use Types Packs/Day Years Used Date Smoking Tobacco: Never Sex and Gender Information Value Date Recorded Sex Assigned at Not on file Gender Identity Not on file Sexual Orientation Not on file documented as of this encounter Plan of Treatment Not on file documented as of this encounter Procedures Procedure Name Priority Date/Time Associated Diagnosis Comments SURGICAL PATHOLOGY Routine 11/10/2015 10 :11 EDT documented in this encounter Results * SURGICAL PATHOLOGY (11/10/2015 10:11 EDT) Pathology Report: SURGICAL PATHOLOGY REPORT Reports generated via electronic interface contain original data; however they are lacking the format of the original report. Caution should be taken when reading/interpreting unformatted reports. Name: ? JULIETA MCCOY ? Accession #: ? [id number] ? : ? 1965 (Age: 50) ??F ? Collect Date: ? 11/10/2015 ? Location: ? [facility] ? Receive Date: ? 11/11/2015 ? Provider: DINORA LAND MD Copy to: MARIBEL MATUTE MD ? Final Pathologic Diagnosis: A. OVARY AND FALLOPIAN TUBE, LEFT, SALPINGO-OOPHORECTOM Y: - ??Ovary: ? - ??Benign simple (mesothelial) cyst (6.5cm). See comment. - ??Fallopian tube: ? - ??Tubo-ovarian adhesions with focal hydrosalpinx of fimbriated end. - ??Paratubal cyst (1.0 cm). B. FALLOPIAN TUBE, RIGHT, FIMBRIA, PARTIAL SALPINGECTOMY: - ??Portion of fimbriated fallopian tube with no specific pathologic features. Comment: Results communicated to Dr. Dinora Land on 11/17/15 at 11:20am. ??Cold Work Operator slides have been reviewed at the intradepartmental consultation conference. ?? Document reviewed and electronically signed by: BAY GASTELUM MD Report ??Date: 11/17/2015 11:28 By the signature above, the attending physician certifies that he/she has personally conducted a gross and/or microscopic examination of the described specimens and rendered or confirmed the above diagnosis. Specimen(s) Received: A. ?Left adnexa B. ? Right fallopian tube fimbria Clinical History: Persistent left ovarian cyst Gross Description: A. ?Received in formalin labelled with proper patient identification (initials M, D) and left adnexa is an ovarian cystic structure (6.5 x 4.8 x 2.5 cm) with an adherent fimbriated fallopian tube (4.3 cm in length x 0.7 cm in diameter). Approximately one-third of the surface is haynes-pink and focally hemorrhagic with the remaining surface as dark purple, shaggy and roughened. Adjacent to the fallopian tube are two fluid-filled cysts ranging 1.0 x 1.2 cm in greatest dimension. ??The fimbriated end extends into the inner surface of the cystic structure. ??The inner lining is haynes-orona and smooth and thickened up to 0.3 cm. ??No lesions or excrescences are identified. ??Cold Work Operator sections are submitted as follows: BLOCK TIM A1- ??fimbria, bisected A2- ??fallopian tube, 2 cross sections A3-A4- vaccine customer representative cystic structure B. ?Received in formalin labelled with proper patient identification (initials M, D) and right fallopian tube fimbria is a haynes-purple to orona fimbriated end (1.3 x 1.2 x 0.5 cm). The specimen is bisected and submitted entirely in B1. 11/11/2015 3:02 PM End of Report [facility] 11/10/2015 10:1 1 EDT 11/11/2015 10:11 EDT Dinora Land MD PATHOLOGY ORDERABLES [facility] [address] [place] [address] documented in this encounter Visit Diagnoses Not on filedocumented in this encounter Care Teams Social Media Analyst Relationship Specialty Start Date End Date Maribel Matute MD [address] [place] [phone] PCP - General 06/13/15 11/20/15 documented as of this encounter
--- OUTSIDE RECORDS SUMMARY | 2024-03-27 15:22 | XMS_ITS | Encounter Summary ---
Author Organization [facility] Address [address] [place] [address] Care Team Providers Care Hhas Name Role Phone Maribel Brian MD Primary Care Provider [phone] Encounter Details Date Type Department Care Team (Late st Contact Info) Description 09/13/2022 Lab Requisition [facility] Pathology & Laboratory Medicine - [address] [id number] Outr Resulting Lab, Provider Social History Tobacco Use Types Packs/Day Years [...] Procedure Name Priority Date/Time Associated Diagnosis Comments T3, TOTAL Routine 09/12/2022 8:50 EST documented in this encounter Results * T3, TOTAL (09/12/2022 8:50 EST) T3, Total 147 97 - 169 ng/dL 09/13/2022 17:47 EST [facility] Blood VENOUS BLOOD / Unknown 09/12/2022 8:50 EST 09/13/2022 16:53 EST Provider Outr Resulting Lab CHEMISTRY & BLOOD GAS ORDERABLES [facility] [address] [place] [address] documented in this encounter Visit Diagnoses Not on filedocumented in this encounter Care Teams Hhas Relationship Specialty Start Date End Date Mraibel Brian MD [address] [place] [id number] PCP - General 12/12/15 documented as of this encounter
--- OUTSIDE RECORDS SUMMARY | 2024-03-27 15:22 | XMS_ITS | Encounter Summary ---
[place] [address] Care Team Providers Care Lagging Machine Operator Name Role Phone Mei Ge APRN Primary Care Provider Encounter Details Date Type Department Care Team (Latest Contact Info) Description 09/03/2023 Travel Social History Tobacco Use Types Packs/Day [...] on filedocumented in this encounter Care Teams Lagging Machine Operator Relationship Specialty Start Date End Date Mei Ge APRN [address] [place] [address] PCP - General Family Medicine 08/19/23 documented as of this encounter
--- OUTSIDE RECORDS SUMMARY | 2024-03-27 15:22 | XMS_ITS | Clinical Summary ---
Author Organization [facility] Address [facility] [place] [address] Care Team Providers Care Culinary Assistant Name Role Phone Mei RAMOS Primary Care Provider Allergies No known active allergies Medications Medication Sig Dispensed Refills Start Date End Date Status GLUCOSAMINE HCL/CHONDRO DEJESUS A (GLUCOSAMINE-CHONDR OITIN ORAL) 06/01/2008 Active omega-3 fatty acids-fish oil 300-400 mg Capsule Take by mouth. Ac tive cholecalciferol, Vitamin D3, 1,000 unit Tablet Take 1,000 Units by mouth. Active multivitamin with minerals Tablet Take 1 tablet by mouth Daily. Active Prasterone, DHEA, (DHEA) 25 mg Capsule Take by mouth. Active hyaluronate sodium (HYALURONIC ACID, SODIUM, ORAL) Take 30 mg by mouth Daily. Active DULoxetine (CYMBALTA) 60 mg Capsule, Delayed Release(E.C.) TAKE 1 CAPSULE BY MOUTH ONCE DAILY 0 05/20/2019 Active ujdw-AY-hft-epa-FAD -NADH-be-mv 1.5 mg iron- 8.73 mg capsule,IR & delay rel,biphase Take 25 mg by mouth. Active DANDELION ROOT ORAL Take by mouth. A ctive FAM unable to findIndications:net tles leaf Indications: christa leaf Active UNABLE TO FIND Med Name: yellow dock root Active oxyCODONE (ROXICODONE) 5 mg Tablet Take 1 tablet by mouth every 4 hours as needed for Pain. 10 tablet 06/26/2019 Active Additional Information Patient not taking.Reported on 07/23/2019 ibuprofen (ADVIL;MOTRIN) 600 mg Tablet Take 1 tablet by mouth every 6 hours as needed for Pain. 60 tablet 06/26/2019 Active Additional Information Patient not taking.Reported on 07/23/2019 UNABLE TO FIND 16 mg. Med Name: pinecone extract Active levothyroxine (Synthroid) 25 mcg tablet Take 1 tablet by mouth Daily at Noon. 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 Immunizations Name Administration Dates Next Due Influenza Vaccine, Whole 06/01/2008 Family History Medical History Relation Comments Anesthesia Reaction Mother Postoperative Nausea and Vomiting Mother Alcohol Use Disorder Sister Relation Status Comments Mother Sister Social History Tobacco Use Types Packs/Day Years [...] EST Inhaled Oxygen Concentration - - Weight 83.9 kg (185 lb) 09/03/2023 10:11 AM EST Height 162.6 cm (5' 4) 09/03/2023 10:11 AM EST Body Mass Index 31.76 09/03/2023 10:11 AM EST Plan of Treatment Health Maintenance Due Date Last Done Comments CT Colonography 1965 Colonoscopy 1965 Colorectal Cancer Screening 1965 FIT DNA 1965 FIT 1965 Sigmoidoscopy (10 year) with FIT yearly 1965 Sigmoidoscopy 1965 HIV screen 1984 Hepatitis C Screening 1984 Lipid Screening 1984 Hepatitis B vaccine (0-59 yrs) (1) 1985 Tdap adult 1985 Tetanus vaccine 1985 HPV test 1996 PAP Smear 1996 Breast Cancer Share Decision Needed 2006 Breast Cancer screening 2006 Diabetes Screening (HgbA1C or Glucose) 2006 Zoster vaccine (1 of 2) 2016 Advance Directive 2021 Covid-19 Vaccine ( - season) 2024 Influenza (Flu) vaccine (1 o f 1 - Influenza standard series) 03/22/2024 06/01/2008 Advance Directives * Full Code (Latest Code Status on File) Date Activated Date Inactivated Comments 06/26/2019 10:23 AM 06/26/2019 5:09 PM Question Answer Comments Does patient have capacity to make decision: Yes Content of discussion: Peiop CPR discussed Care Teams Culinary Assistant Relationship Specialty Start Date End Date Mei Ge APRN [address] [place], [place] [address] PCP - General Family Medicine 08/19/23
--- OUTSIDE RECORDS SUMMARY | 2024-03-27 15:22 | XMS_ITS | Encounter Summary ---
[facility] Organization [facility] [place] [address] Care Team Providers Care Aligner Name Role Phone Maribel Brian MD Primary Care Provider [phone] Reason for Visit * Auth/Cert Specialty Diagnoses / Procedures Referred By Contac t Referred To Contact Diagnoses Right Ovarian Mass Procedures PRO LAP, RMV ADNEXAL STRUCTURE LAPAROSCOPY, REMOVAL OF ADNEXA (WRVU 11.35) Referral ID Status Reason Start Date Expiration Date Visits Re quested Visits Authorized [id number] 1 1 Encounter Details Date Type Department Care Team (Late st Contact Info) Description 06/26/2019 10:56 AM EST - 06/26/2019 1:26 PM EST Surgery [place] [address] Haylee Vizcarra MD [facility] [place] [address] LAPAROSCOPY, REMOVAL OF ADNEXA (WRVU 11.35) Social History Tobacco Use Types Packs/Day Years [...] Sign Reading Time Taken Comments Blood Pressure 134/77 06/26/2019 1:21 PM EST Pulse 100 06/26/2019 9:57 AM EST Temperature 36.1 ??C (97 ??F) 06/26/2019 1:21 PM EST Respiratory Rate 28 06/26/2019 1:21 PM EST Oxygen Saturation 100% 06/26/2019 1:21 PM EST Inhaled Oxygen Concentration - - Weight 84.4 kg (186 lb) 06/26/2019 9:57 AM EST Height 165.5 cm (5' 5.16) 06/26/2019 9:57 AM ES T Body Mass Index 30.8 06/26/2019 9:57 AM EST documented in this encounter Discharge Instructions * Discharge Instructions* Kanu Jackson RN - 06/26/2019 1:54 PM EST POST ANESTHESIA INSTRUCTIONS Go home, rest, use caution on stairs. Change positions slowly. Do not smoke if you are alone. Diet light to regular as tolerated today. If nausea occurs start with clear liquids and progress slowly. No driving, operating machinery, alcoholic beverages and no important decisions for 24 hours. Monitor IV site for signs and symptoms of infection: increasing redness, swelling, foul drainage, if occurs contact M.D. Patients who have had endotrachial tubes (this tube, used by anesthesia department, is passed down your throat after you are asleep, to ensure safe air passage during your operation). A sore throat is normal due to the tube. Cold liquids or soothing lozenges will help ease the discomfort. The generalized muscle aches are due to the medication given to you just before the tube is inserted. As the medication wears off, you may develop muscle soreness, which usually goes away in 12-24 hours. * Patient Instructions* Jie Cee - 06/26/2019 10:59 AM EST Images from the original note were not included. PATIENT DISCHARGE INSTRUCTIONS Appointments: 07/29/2019 2:30 PM Haylee Vizcarra MD [facility] Gynecology phone number: [phone] Call your doctor if you develop: --A fever over 101 degrees --Severe pain --Heavy vaginal bleeding --Increasing pain, redness, or discharge at your incisions Activity level: No heavy lifting, pushing or pulling for 4 weeks. You should be able to resume your usual activities of daily living (eating, drinking, washing and walking). You can walk or climb stairs as long as you are not straining. You should avoid more vigorous exercise for at least 6 weeks. Complete recover may take 3-6 weeks, and sometimes longer. Diet: You may resume your regular diet. Be sure you drink plenty of fluids. Please use colace 100-200mg twice daily for the entire time that you are taking pain medication to keep your bowel movements soft and regular. If you are constipated or have not had a bowel movement in 3 days, please use milk of magnesia (or miralax) as directed over the counter. Please call us if you have not had a bowel movement after 5 days. It is important to try to avoid straining with a bowel movement. Driving: Do not drive until you are off of all narcotic medications and you are not feeling pain Shower/Bath: You may take a shower anytime. Do not soak in a tub for 2 weeks, this may cause your stitches to dissolve too early. Do not douche Wound Care: Your skin incisions may be closed with skin glue, which will wash off after several days. Please do not peal the glue off before that time. Special Physician Instructions: Pain medications include ibuprofen (brand names include Motrin or Advil), Tylenol and oxycodone. 1. Please use ibuprofen 600 mg every 6 hours with food and Tylenol 650 mg every 6 hours around the clock for the next several days and then after that use it only as needed. Please use the oxycodone every 4-6 hours as needed for pain that breaks through the ibuprofen andTylenol documented in this encounter Medications at Time of Discharge Medication Sig Dispensed Refills Start Date End Date oxyCODONE (ROXICODONE) 5 mg Tablet Take 1 tablet by mouth every 4 hours as needed for Pain. 10 tablet 06/26/2019 ibuprofen (ADVIL;MOTRIN) 600 mg Tablet Take 1 tablet by mouth every 6 hours as needed for Pain. 60 tablet 06/26/2019 omega-3 fatty acids-fish oil 300-400 mg Capsule Take by mouth. cholecalciferol, Vitamin D3, 1,000 unit Tablet Take 1,000 Units by mouth. multivitamin with minerals Tablet Take 1 tablet by mouth Daily. Prasterone, DHEA, (DHEA) 25 mg Capsule Take by mouth. hyaluronate sodium (HYALURONIC ACID, SODIUM, ORAL) Take 30 mg by mouth Daily. DULoxetine (CYMBALTA) 60 mg Capsule, Delayed Release(E.C.) TAKE 1 CAPSULE BY MOUTH ONCE DAILY 0 05/20/2019 [id number]-[id number] -be-mv 1.5 mg iron- 8.73 mg capsule,IR & delay rel,biphase Take 25 mg by mouth. DANDELION ROOT ORAL Take by mouth. FAM unable to findIndications:christa leaf Indications: christa leaf UNABLE TO FIND Med Name: yellow dock root GLUCOSAMINE HCL/CHONDRO DEJESUS A (GLUCOSAMINE-CHONDROITIN ORAL) 06/01/2008 documented as of this encounter H&P Notes * Haylee Vizcarra MD - 06/26/2019 10:32 AM EST Gynecology H & P Problem List: Active Hospital Problems Diagnosis ??? Adnexal mass Resolved Hospital Problems No resolved problems to display. Reason for Visit: 53 y.o. Female presents to [facility] for scheduled [place]. History of Present Illness: ILIR Rendon is a 53 yo woman who was found to have an adnexal mass palpated on exam and ultrasound showed a right adnexal mass, 4 cm on U/S. She saw Dr Vizcarra on 05/25 and was counseled about options andelected surgery. No changes in health since last visit. Review of Systems: Review of Systems negative to complete ROS Past Medical and Surgical History: Past Medical History: Diagnosis Date ??? Bowel [...] ??? CATARACT REMOVAL ??? HYSTERECTOMY, TOTAL ABDOMINAL 2008 ??? JOINT REPLACEMENT left thumb ??? SALPINGECTOMY Bilateral ??? SALPINGO-OOPHORECTOMY Left Past Obstetric History: OB History No data available Prior To Admission Medications: Medications Prior to Admission Medication Sig Dispense Refill Last Dose ??? omega-3 fatty acids-fish oil 300-400 mg Capsule Take by mouth. 06/25/2019 at Unknown time ??? cholecalciferol, Vitamin D3, 1,000 unit Tablet Take 1,000 Units by mouth. 06/25/2019 at Unknown time ??? multivitamin with minerals Tablet Take 1 tablet by mouth Daily. 06/25/2019 at Unknown time ??? Prasterone, DHEA, (DHEA) 25 mg Capsule Take by mouth. 06/25/2019 at Unknown time ??? hyaluronate sodium (HYALURONIC ACID, SODIUM, ORAL) Take 30 mg by mouth Daily. 06/25/2019 at Unknown time ??? DULoxetine (CYMBALTA) 60 mg Capsule, Delayed Release(E.C.) TAKE 1 CAPSULE BY MOUTH ONCE DAILY at Unknown time ? ? [id number]-[id number]-[id number]-VUA-[id number]-be-mv 1.5 mg iron- 8.73 mg capsule,IR & delay rel,biphase Take 25 mg by mouth. Past Week at Unknown time ??? UNABLE TO FIND Med Name: yellow dock root 06/25/2019 at Unknown time ??? GLUCOSAMINE HCL/CHONDRO DEJESUS A (GLUCOSAMINE-CHONDROITIN ORAL) 06/25/2019 at Unknown time ??? DANDELION ROOT ORAL Take by mouth. Taking ??? FAM unable to find Indications: christa leaf Taking Allergies: No Known Allergies Family History: Family History Problem Relation Age of Onset ??? Alcohol Use Disorder Sister ??? Anesthesia Reaction Mother ??? Postoperative Nausea and Vomiting Mother Social History and Habits: Social History Socioeconomic History ??? Marital status: Spouse name: Not on file ??? Number of children: Not on file ??? Years of education: Not on file ??? Highest education level: Not on file Occupational History ??? Not on file Social Needs ??? Financial resource strain: Not on file ??? Food insecurity: Worry: Not on file Inability: Not on file ??? Transportation needs: Medical: Not on file Non-medical: Not on file Tobacco Use ??? Smoking status: Never Smoker ??? Smokeless tobacco: Never Used Substance and Sexual Activity ??? Alcohol use: Yes Alcohol/week: 0.0 standard drinks Comment: rare ??? Drug use: Never ??? Sexual activity: Not on file Lifestyle ??? Physical activity: Days per week: Not on file Minutes per session: Not on file ??? Stress: Not on file Relationships ??? Social connections: Talks on phone: Not on file Gets together: Not on file Attends restorationism service: Not on file Active member of club or organization: Not on file Attends meetings of clubs or organizations: Not on file Relationship status: Not on file ??? Intimate partner violence: Fear of current or ex partner: Not on file Emotionally abused: Not on file Physically abused: Not on file Forced sexual activity: Not on file Other Topics Concern ??? Not on file Social History Narrative ??? Not on file Immunizations: Immunization History Administered Date(s) Administered ??? Influenza Vaccine, Whole 06/01/2008 Physical Exam: Last Set of Vitals: Last value Range last 24 hrs Temperature Temp: 36.6 ??C (97.9 ??F) Temp: [36.6 ??C (97.9 ??F)] Heart Rate Heart Rate: 100 Heart Rate: [100] Blood Pressure BP: 155/83 BP: (155)/(83) Respiratory Rate Resp: 18 Resp: [18] SpO2 SpO2: 97 % SpO2: [97 %] Physical Exam General: Appears well, NAD Cardio: RRR Resp: CTAB Abdomen: Non-tender LE: no edema, non-tender Laboratory (Last 24 Hours): No new labs Pertinent Radiographic/Diagnostic Results: U/S in e-DH Assessment/Plan: 53 yo woman with right adnexal mass who presents for surgical removal. Consent previously signed. I counseled the patient about risks of opioids including addiction, overdose, diversion. I reviewedproper disposal of unused medications. She signed the consent form for treatment of acute pain withopioid medications. ORT low risk Jie Cee MD PGY4 06/26/2019 I have seen and examined the patient and reviewed and edited the resident's above history and I agree with the details as written. The assessment and plan were formulated in discussion with me and I agree with them as documented. Haylee Vizcarra MD documented in this encounter Miscellaneous Notes * Op Note - Haylee Vizcarra MD - 06/26/2019 3:03 PM EST [facility] Operative Note Patient Name: Julieta Mccoy : [id number] MR#: [id number] Case Date: 06/26/2019 Surgeon: Surgeon(s) and Role: * Haylee Vizcarra MD - Primary * Jie Cee MD - Resident Preoperative diagnosis: Right Ovarian Mass ?? Postoperative diagnosis: hydrosalpinx ?? Procedure(s) (LRB): LAPAROSCOPY, REMOVAL OF ADNEXA (WRVU 11.35) (N/A) (laparoscopic RSO) ?? Anesthesia: General ?? Findings: residual cervix. Adhesions of small and large bowel to cervical stump and right adnexa. Dilated fallopian tube. ?? Complications: none Intake: Intraprocedure Crystalloid Total lactated ringers infusion Volume (mL) 800 mL Transfusion No data found in the last 1 encounters. Output: Estimated Blood Loss: * No values recorded between 06/26/2019 11:50 AM and 06/26/2019 1:11 PM * Urine Output:: 150 mL Other Output: (no other output recorded) ?? Drains: carty ?? Specimens removed during surgery: Order Name Source Comment Collection Info Order Time CYTOPATHOLOGY NON-GYNECOLOGICAL ?? Pelvic washings taken intra-op ?? 06/26/2019 11:53 AM Pertinent clinical data and significant therapy: Right Ovarian Mass ? Clinical impression: Pelvic Washing ? Procedure Type: Other (please specify in comments) ? Sample Type: Pelvic wash ? SPECIMEN TO PATHOLOGY ?? [id number] OR 26 Right Ovarian Mass Right Tube and Ovary biopsy YES, Please perform frozen section No 06/26/2019 12:04 PM Number of tissue samples (in container) 2 ? Time specimen removed from patient: 12:04 PM ? Biospecimen to store? No ? Disposition: awakened from anesthesia, extubated and taken to the recovery room in a stable condition, having suffered no apparent untoward event. ?? Condition: doing well without problems (Please see the Surgical Encounter Summary for any Implant and Specimen details pertinent to this patient.) HPI/Surgical Indications: Julieta is a 53 yo woman who was found to have a pelvic mass on exam which onultrasound was identified as a likely right adnexal mass. She was recommended to undergo removal for pathologic diagnosis. She was counseled about risks of surgery and signed a consent form. Procedure Description: She was taken to the OR where general anesthesia was obtained without difficulty. The patient was placed in the dorsal lithotomy position with Yellofin Stirrups. The patient was prepared and draped in the usual sterile fashion. A Time Out was performed and all members of the team were in agreement to proceed. A carty catheter was inserted. A speculum was inserted into the vagina which revealed a residual cervix. A spongestick was placed in the vagina. Sterile gloves were changed and attention was then turned to the abdomen. A vertical skin incision was made across the umbilical folds. A Veress needle was used to enter the peritoneal cavity with low opening pressure consistent with intraabdominal placement. Pneumoperitoneum was established To 15 mmHg with CO2. A 12 mm trocar was inserted into the abdomen under direct visualizationwith the laparoscope. An intraabdominal survey was performed. Two 5mm trocars were inserted in the bilateral lower quadrants under direct visualization with laparoscope. Trendelenburg position was obtained to facilitate pelvic exposure. Adhesions of the bowel to the right adnexa and the cervix were carefully taken down with a mix of blunt and sharp dissection. The peritoneum on the right pelvic sidewall was opened to identify the ureter. The IP was cauterized and ligated with Ligasure and the right adnexa was removed in a bag through the umbilical incision and sent for frozen pathology. The pelvic sidewall was cauterized with Ligasure until hemostatic. The area was irrigated. The fascia of the umbilical incision was closed with 0-Vicryl using a Dez-Anuel device. Pneumoperitoneum was released. All instruments were removed from the abdomen including the ports which were removed over a blunt probe. The skin was closed with 4-0 Vicryl and Dermabond. All instruments were removed from the vagina. The Carty was removed. All counts were correct. The patient was extubated and taken to the recovery room in stable condition. Dr. Vizcarra, Attending, was present and scrubbed for the entire procedure without intervening responsibility. Jie Cee MD PGY4 06/28/2019 Infection Bundle used? N/A I, Haylee Vizcarra MD, attest that I performed this surgery with the assistance of a resident. Iwas present and participated in the entire surgery, from start to finish, as the primary and attending surgeon of record. * Brief Op Note - Haylee Vizcarra MD - 06/26/2019 1:29 PM EST Brief Operative Note Patient Name: Julieta Mccoy : [id number] MR#: [id number] Case Date: 06/26/2019 Surgeon: Surgeon(s) and Role: * Haylee Vizcarra MD - Primary * Jie Cee MD - Resident Preoperative diagnosis: Right Ovarian Mass Postoperative diagnosis: hydrosalpinx Procedure(s) (LRB): LAPAROSCOPY, REMOVAL OF ADNEXA (WRVU 11.35) (N/A) Anesthesia: General Findings: residual cervix. Adhesions of small and large bowel to cervical stump and right adnexa. Dilated fallopian tube. Complications: none Intake: Intraprocedure Crystalloid Total lactated ringers infusion Volume (mL) 800 mL Transfusion No data found in the last 1 encounters. Output: Estimated Blood Loss: * No values recorded between 06/26/2019 11:50 AM and 06/26/2019 1:11 PM * Urine Output:: 150 mL Other Output: (no other output recorded) Drains: carty Specimens removed during surgery: Order Name Source Comment Collection Info Order Time CYTOPATHOLOGY NON-GYNECOLOGICAL Pelvic washings taken intra-op 06/26/2019 11:53 AM Pertinent clinical data and significant therapy: Right Ovarian Mass Clinical impression: Pelvic Washing Procedure Type: Other (please specify in comments) Sample Type: Pelvic wash SPECIMEN TO PATHOLOGY 3-3126 OR 26 Right Ovarian Mass Right Tube and Ovary biopsy YES, Please perform frozen section No 06/26/2019 12:04 PM Number of tissue samples (in container) 2 Time specimen removed from patient: 12:04 PM Biospecimen to store? No Disposition: awakened from anesthesia, extubated and taken to the recovery room in a stable condition, having suffered no apparent untoward event. Condition: doing well without problems Attestation: Case Date: 06/26/2019 I was present and I participated during the entire procedure (does not need to include opening and closing). (Please see the Surgical Encounter Summary for any Implant and Specimen details pertinent to this patient.) documented in this encounter Plan of Treatment Not on file documented as of this encounter Procedures Procedure Name Priority Date/Time Associated Diagnosis Comments SURGICAL PATHOLOGY REPORT Routine 06/26/2019 12:06 PM EST SPECIMEN TO PATHOLOGY STAT 06/26/2019 12:04 PM EST NON-STAFF PHYSICAL THERAPIST FINAL REPORT Routine 06/26/2019 11:53 AM EST CYTOPATHOLOGY NON-GYNECOLOGICAL Routine 06/26/2019 11:53 AM EST Lap, Rmv Adnexal Structure (06633) 06/26/2019 10:59 AM EST Right Ovarian Mass documented in this encounter Results * Surgical Pathology Report (06/26/2019 12:06 PM EST) Final Diagnosis [id number] ? Location: [facility]; The signing pathologist has (i) examined the relevant preparation(s) for the specimen(s) and (ii) rendered or confirmed the diagnosis(es). . ?Surgical Pathology DIAGNOSIS Right fallopian tube and ovary (salpingo-oophore ctomy): ?? 1. Ovarian follicular cysts. ?? 2. Surface adhesions. ?? 3. Dilated fallopian tube (hydrosalpinx). ?? 4. Paratubal cysts. CR-0 Electronically signed by: ??Guille Pedro MD Verified: ??07/02/2019 ?Pathologist Performed at: ??-[facility] Dept. of Pathology, [place], [place] CLINICAL INFORMATION Specimen Submitted: A - Right Tube and Ovary for frozen section Clinical History and Diagnosis: Right ovarian mass SPECIMEN PROCESSING A - Labeled/Fixative: Right tube and ovary, fresh. Quantity/Size/González ght: Single, 4.4 x 3.4 x 2.0 cm, 15.0 grams (overall). Tissue Description: Intact, right ovary and fallopian tube. RIGHT OVARY ?? Size: 4.0 x 2.5 x 1.0 cm. ?? Outer Surface: Dempsey-white. ?? Cut Surface: No normal ovarian tissue is identified. The cut ?? surface of the specimen is orona and white and relatively ?? homogenous. A small cystic structure, measuring 1.0 cm in ?? diameter is identified. There is also a luminal structure, ?? possibly a vessel, which appears to contain clotted blood. ?? The structure measures 0.7 cm in diameter. Right Fallopian Tube: 1.7 cm diameter; at least 2.5 cm in length; no fimbria identified, dilated up to 1.7 cm. Frozen section is performed. Breeder Hen Service Technician sections in 10 cassettes as follows: ?A1-A2: Frozen section remnant, bisected ?A3-A6: Sections of possible fallopian tube ?A7: Luminal structure with blood ?A8: Cystic structure ?A9: Candidate ovarian tissue ?A10: Additional tissues from specimen rh ?Frozen Section FROZEN SECTION DIAGNOSIS AFS - Right Tube and Ovary for frozen section: Hydrosalpinx. . FROZEN SECTION DIAGNOSIS 06/26/19 13:03 Electronically signed by: ??Fred CALLOWAY, Debora Zarco Verified: ??06/26/2019 ?Pathologist Performed at: ??-[facility] Dept. of Pathology, [place], [place] This intraoperative consultation should be interpreted as a preliminary diagnosis pending review of the entire specimen and special studies, if any. 07/02/2019 1:18 PM EST [facility] OVARIAN PART / Unknown 06/26/2019 12:06 PM EST 06/26/2019 12:06 PM EST Haylee Vizcarra MD PATHOLOGY/CYTOLOGY O LAINA Performing Organization Address [facility] Co de Phone Number [facility] [place] [address] * Specimen to Pathology (06/26/2019 12:04 PM EST) AP Specimen 06/26/2019 12:0 4 PM EST 06/26/2019 12:04 PM EST Narrative [facility] - 06/26/2019 12:04 PM EST Specimen requisition ordered. ??Separate Pathology report to follow Haylee Vizcarra MD PATHOLOGY/CYTOLOGY O LAINA Performing Organization Address [facility] de Phone Number [facility] [place] [address] * Non-Childcare Worker Final Report (06/26/2019 11:53 AM EST) Diagnosis Discussion [id number] ? Location: [facility]; The signing pathologist has (i) examined the relevant preparation(s) for the specimen(s) and (ii) rendered or confirmed the diagnosis(es). . ? Non-Childcare Worker Final DIAGNOSIS Negative for Malignancy Electronically signed by: ??Desirae CALLOWAY PhD, Julian Zarco Verified: ??06/30/2019 ?Pathologist Performed at: ??-[facility] Dept. of Pathology, [place], [place] DISCUSSION Pelvic washing: Mesothelial cells, lymphocytes, and neutrophils are present. Cell block was examined. CLINICAL INFORMATION Specimen Source : Pelvic washing Pertinent Clinical Data and Significant Therapy: Right ovarian mass Clinical Impression : Pelvic washing Pertinent Radiologic Findings ??: (not provided) Gross Description: Received ??fresh approximately 43 mL total volume of ?? clear, colorless fluid, with light flecks. Total Preparation: Liquid-Based Prep 1; Cell Block 1. 06/30/2019 3:42 PM EST [facility] Pelvic Washing 06/26/2019 11 :53 AM EST 06/26/2019 11:53 AM EST Haylee Vizcarra MD PATHOLOGY/CYTOLOGY O LAINA Performing Organization Address City/[facility] [place] [address] * Cytopathology Non-Gynecological (06/26/2019 11:53 AM EST) AP Specimen 06/26/2019 11:5 3 AM EST 06/26/2019 11:53 AM EST Narrative [facility] - 06/26/2019 11:53 AM EST Specimen requisition ordered. ??Separate Pathology report to follow Haylee Vizcarra MD PATHOLOGY/CYTOLOGY O LAINA Performing Organization Address [facility] Co de Phone Number [facility] [place] [address] documented in this encounter Visit Diagnoses Not on filedocumented in this encounter Administered Medications Inactive Administered Medications - up to 3 most recent administrations Medication Order MAR Action Action Date Dose Rate Site BUpivacaine (PF) (MARCAINE) 0.5 % (5 mg/mL) injection ONCE PRN, Starting on Sat06/26/19 at 1319, Until Sat06/26/19 at 1703, Intra-Operative (Intra-Procedure), Routine Given 06/26/2019 1:19 PM EST 20 mLs heparin (Porcine) subcutaneous injection 5,000 Units 5,000 Units, Subcutaneous, ONCE, 1 dose, On Sat06/26/19 at 1030, Day of Surgery (Day of Procedure), Routine Given 06/26/2019 10:30 AM EST 5,000 Units oxyCODONE (ROXICODONE) immediate release tablet 5-10 mg 5-10 mg, Oral, EVERY 3 HOURS PRN, Starting on Sat06/26/19 at 1316, Until Sat06/26/19 at 1703, Pain, - If multiple pain medications ordered, use acetaminophen first. - If pain not relieved by acetaminophen first, administer oxycodone. - Initial dose 5 mg. - If pain control not adequate in 60 minutes, give additional 5 mg., Routine Given 06/26/2019 2:18 PM EST 5 mg phenazopyridine (PYRIDIUM) tablet 200 mg 200 mg, Oral, ONCE, On Sat06/26/19 at 1030, 1 dose, Day of Surgery (Day of Procedure) Given 06/26/2019 10:30 AM EST 200 mg documented in this encounter Active and Recently Administered Medications Times are shown in EST. Scheduled Medication Order 06/24/2019 06/25/2019 06/26/2019 heparin (Porcine) subcutaneous injection 5,000 Units (COMPLETED) 5,000 Units, Subcutaneous, ONCE, 1 dose, On Sat06/26/19 at 1030, Day of Surgery (Day of Procedure), Routine 1030 (Given - Provid er: Nina Koch RN) phenazopyridine (PYRIDIUM) tablet 200 mg (COMPLETED) 200 mg, Oral, ONCE, On Sat06/26/19 at 1030, 1 dose, Day of Surgery (Day of Procedure) 1030 (Given - Provid er: Nina Koch RN) Continuous Medication Order 06/24/2019 06/25/2019 06/26/2019 lactated ringers infusion (CANCELED) 1,000 mL, at 100 mL/hr, Intravenous, CONTINUOUS, Starting on Sat06/26/19 at 1030, Until Sat06/26/19 at 1503, Day of Surgery (Day of Procedure) 1056 (New Bag - Prov ider: Eve Ku CRNA)1230 (Anesthesia Volume Adjustment - Provider: Eve Ku CRNA)1331 (Stopped - Provider: Eve Ku CRNA) lactated ringers infusion 1,000 mL, at 100 mL/hr, Intravenous, CONTINUOUS, Starting on Sat06/26/19 at 1345, Until Sat06/26/19 at 1703 1345 (Due) PRN Medication Order 06/24/2019 06/25/2019 06/26/2019 BUpivacaine (PF) (MARCAINE) 0.5 % (5 mg/mL) injection (CANCELED) ONCE PRN, Starting on Sat06/26/19 at 1319, Until Sat06/26/19 at 1703, Intra-Operative (Intra-Procedure), Routine 1319 (Given - Provid er: Haylee Vizcarra MD) oxyCODONE (ROXICODONE) immediate release tablet 5-10 mg 5-10 mg, Oral, EVERY 3 HOURS PRN, Starting on Sat06/26/19 at 1316, Until Sat06/26/19 at 1703, Pain, - If multiple pain medications ordered, use acetaminophen first. - If pain not relieved by acetaminophen first, administer oxycodone. - Initial dose 5 mg. - If pain control not adequate in 60 minutes, give additional 5 mg., Routine 1418 (Given - Provid er: Kanu Jackson RN) documented in this encounter Care Teams Aligner Relationship Specialty Start Date End Date Maribel Brian MD [address] [place] [address] PCP - General Family Medicine 05/15/19 08/18/23 documented as of this encounter
--- OUTSIDE RECORDS SUMMARY | 2024-03-27 15:22 | XMS_ITS | Encounter Summary ---
Author Organization [facility] Address [address] [place] [address] Care Team Providers Care Guard Sergeant Name Role Phone Unknown, Provider Primary Care Provider [phone] Encounter Details Date Type Department Care Team (Late st Contact Info) Description 01/05/2003 Results Only [facility] [address] [place] [address] Dinora Land MD [address] [place] [address] [place] [address] Social History Tobacco Use Types Packs/Day Years Used Date Smoking Tobacco: Never Assessed Sex and Gender Information Value Date Recorded Sex Assigned at Not on file Gender Identity Not on file Sexual Orientation Not on file documented as of this encounter Plan of Treatment Not on file documented as of this encounter Procedures Procedure Name Priority Date/Time Associated Diagnosis Comments CYTOPATHOLOGY Routine 01/05/2003 0:00 EDT documented in this encounter Results * CYTOPATHOLOGY (01/05/2003 0:00 EDT) Pathology Report: CYTOPATHOLOGY REPORT Reports generated via electronic interface contain original data; however they are lacking the format of the original report. Caution should be taken when reading/interpreti ng unformatted reports. Name: ? JULIETA MCCOY ? Accession #: ? [id number] : ? 1965 (Age: 37) ??F ?Collect Date: ? 01/05/2003 Location: ? [facility] ? Receive Date: ? 01/07/2003 Provider: ?DINORA LAND MD Copy to: ? Specimen/Source: ?ThinPrep Pap Test, Cervix/Endocervix Last Menstrual Period: ? 12/28/02 Hormonal/Contracep tive Status: ? Orthotricyclen Other: ? HPVA - HPV testing requested if ASC-US on the current ThinPrep Pap test. ? SPECIMEN ADEQUACY ? Satisfactory for Evaluation - transformation zone component present GENERAL CATEGORIZATION ? Negative for Intraepithelial Lesion or Malignancy INTERPRETATION ? Reactive cellular changes associated with inflammation present (includes repair). ? Document reviewed and electronically signed by: ? PORSCHE KELLY MD [facility] ? Report Date: ??01/13/2003 16:55 End of Report [facility] 01/05/2003 01/07/2003 Dinora Land MD PATHOLOGY ORDERABLES Performing Organization Address City/State/[facility] Co de Phone Number [facility] [address] [place] [address] documented in this encounter Visit Diagnoses Not on filedocumented in this encounter Care Teams Guard Sergeant Relationship Specialty Start Date End Date Unknown, Provider, PCP - General 11/29/08 06/12/15 documented as of this encounter
--- OUTSIDE RECORDS SUMMARY | 2024-03-27 15:22 | XMS_ITS | Encounter Summary ---
Author Organization [facility] [place] [address] Care Team Providers Care Industrial Painter Name Role Phone Maribel Brian MD Primary Care Provider [phone] Encounter Details Date Type Department Care Team (Late st Contact Info) Description 07/04/2023 Ancillary Procedure [place] [id number] Chandrakant Mendez MD [facility] [place] [address] Social History Tobacco Use Types Packs/Day Years [...] LIBRARY STORAGE ONLY MR UPPER EXTREMITY Routine 07/04/2023 12:00 AM EST documented in this encounter Results * Film Library- Storage Only MR Upper Extremity (07/04/2023 12:00 AM EST) Narrative [facility] - 09/02/2023 4:30 PM EST This exam is auto-finalizing. It's purpose is for storage only. Chandrakant Mendez MD IMG FILM LIBRARY ORD ERABLES [facility] [place], [place] documented in this encounter Visit Diagnoses Not on filedocumented in this encounter Care Teams Industrial Painter Relationship Specialty Start Date End Date Maribel Brian MD [address] [place] [address] PCP - General Family Medicine 05/15/19 08/18/23 documented as of this encounter
--- OUTSIDE RECORDS SUMMARY | 2024-03-27 15:22 | XMS_ITS | Encounter Summary ---
[facility] [place] [address] Care Team Providers Care Deicer Repairer Pneumatic Name Role Phone JooMarlene ramseymireya RAMOS Primary Care Provider [phone] Reason for Visit * Reason Onset Date Comments Questions 09/10/2023 Encounter Details Date Type Department Care Team (Late st Contact Info) Description 09/10/2023 Telephone [place] [address] Chandrakant Mendez MD [facility] DR [place] [address] Questions Social History Tobacco Use Types Packs/Day [...] encounter Miscellaneous Notes * Telephone Encounter - Nate Valdez - 09/16/2023 3:15 PM EST Julieta returned Denita's call. After explaining Denita's previous message to Julieta, Julieta asked that place the appropriate surgical orders, at least to start the process. Any further questions,please reach out to Julieta. Best callback: [phone] * Telephone Encounter - Denita Burnette MA - 09/16/2023 3:08 PM EST Called patient to let her know the surgical codes for insurance billing would be: 09503 (muscle transfer) and 95479 (rotator cuff repair) According to Dr. Mendez sometimes it is easier to put in the surgical request and have it go through insurance that way in which case we would be notified of a denial. Patient did not answer, message was left with call back number, but no details. [facility] message sent with details. * Telephone Encounter - Mya Naik - 09/10/2023 10:54 AM EST Name of person calling : Julieta Who is the provider: Andrea Have you had surgery: No If yes : DOS: n.a Surgeon: n.a Is there a new injury: No If yes, how did the new injury occur?: n.a Best contact number: [phone] What is the question: Patient would like to wait to have surgery but would like to see if insurancewould even cover the surgery she is going to need. Are we able to assist getting her that info? Thank you documented in this encounter Plan of Treatment Not on file documented as of this encounter Visit Diagnoses Not on filedocumented in this encounter Care Teams Deicer Repairer Pneumatic Relationship Specialty Start Date End Date Mei Ge APRN [address] [place] [address] PCP - General Family Medicine 08/19/23 documented as of this encounter
--- OUTSIDE RECORDS SUMMARY | 2024-03-27 15:23 | XMS_ITS | Encounter Summary ---
[place] [address] Care Team Providers Care Director Emergency Services Name Role Phone MarleneMeimireya RAMOS Primary Care Provider [phone] Encounter Details Date Type Department Care Team (Late st Contact Info) Description 11/30/2010 [place] [phone] Lois Ferguson MD [address] [place] [address] Social History Tobacco Use Types Packs/Day Years [...] Associated Diagnosis Comments SURGICAL PATHOLOGY REPORT Routine 11/30/2010 3:03 PM EDT documented in this encounter Results * Surgical Pathology Report (11/30/2010 3:03 PM EDT) Surgical Pathology Report [id number] ? Location: [facility] The signing pathologist has (i) examined the relevant preparation(s) for the specimen(s) and (ii) rendered or confirmed the diagnosis(es). . ?Pathology Surgical Pathology Final Report Clinical Information Specimen Submitted: A - L back rear midline, shave (1) Report to: Lois Ferguson MD Dermatology [address] [place] [address] , [address] [place], [place] ??[address] Phone - FAX - Clinical History/Diagnosis : 6-mm irregular brown macule. ??Nevus R/O MM Gross Description Labeled/Fixative: ? L back, formalin. Qty/Size/Weight: ?Single shave, 0.7 cm, white with a 0.6-cm, brown ?macule. Sections/Processi ng: ??Trisected. ??(T1) aje/SNS Microscopic Description Slides reviewed, microscopic description not recorded. Diagnosis Skin of left back near midline, shave biopsy: ?? Atypical intraepidermal melanocytic proliferation occurring in association with a melanocytic nevus. ??See Comment. CR-0 12/02/10 AJE 12/05/10 Verified by: ? Jameel CALLOWAY, Erick Martino ?Dermatopatholog ist ?(Electronic Signature) The attending pathologist whose signature appears on this report has reviewed all diagnostic slides and has edited the gross and/or microscopic portion of the report in rendering the final pathologic diagnosis. Comment Although this could represent a severely atypical dysplastic nevus, the possibility that this represents an evolving ?? malignant melanoma in situ occurring in association with a nevus ??cannot be excluded. ??Because of this later consideration and ??because the lesion extends to deep and peripheral edges, the complete excision of this lesion including an appropriate margin of normal and non-scarred skin and subcutis is strongly recommended to fully assess its nature and to ensure its total removal. ??This case has been reviewed by Nate Martinez, and Gómez, who concur with the diagnosis. ??Multiple deeper levels have been examined. MARLENE LEBLANC 11/30/2010 3:03 PM EDT Lois Ferguson MD PATHOLOGY/CYTOLOGY O RDERADAX [facility] documented in this encounter Visit Diagnoses Not on filedocumented in this encounter Care Teams Director Emergency Services Relationship Specialty Start Date End Date Mei Ge APRN [address] [place] [address] PCP - General Family Medicine 08/19/23 documented as of this encounter
--- OUTSIDE RECORDS SUMMARY | 2024-03-27 15:23 | XMS_ITS | Encounter Summary ---
[place] [address] Care Team Providers Care Hand Woodworking Sander Name Role Phone Maribel Brian MD Primary Care Provider [phone] Encounter Details Date Type Department Care Team (Late st Contact Info) Description 06/09/2019 Telephone Obstetrics [place] [phone] Eve Dawkins, RN Social History Tobacco Use Types Packs/Day Years [...] encounter Miscellaneous Notes * Telephone Encounter - Eve Dawkins RN - 06/09/2019 4:26 PM EST Pre-op Education Call: Hibiclens washing instructions reviewed. Dietary instructions reviewed. Anticoagulation plan: NA - Will stop all supplements Need for further testing: NA Patient was told to expect a phone call on the day prior to surgery to review day of surgery medication instructions as well as surgical arrival time. All questions answered to patient satisfaction. Julieta Mccoy states understanding of instructions reviewed and is in agreement with plan. documented in this encounter Plan of Treatment Not on file documented as of this encounter Visit Diagnoses Not on filedocumented in this encounter Care Teams Hand Woodworking Sander Relationship Specialty Start Date End Date Maribel Brian MD [address] [place] [address] PCP - General Family Medicine 05/15/19 08/18/23 documented as of this encounter
--- OUTSIDE RECORDS SUMMARY | 2024-03-27 15:23 | XMS_ITS | Encounter Summary ---
[place] [address] Care Team Providers Care Vc++ Developer Name Role Phone Maribel Brian MD Primary Care Provider [phone] Encounter Details Date Type Department Care Team (Latest Contact Info) Description 05/25/2019 12:40 PM EST Clinical [place] [address] Complex ovarian cyst Social History Tobacco Use Types Packs/Day Years Used Date Smoking Tobacco: Never Smokeless Tobacco: Never Alcohol Use Standard Drinks/Week Comments Yes 0 (1 standard drink = 0.6 oz pur e alcohol) rare Sex and Gender Information Value Date Recorded Sex Assigned at Not on file Gender Identity Not on file Sexual Orientation Not on file documented as of this encounter Progress Notes * Mami Arellano RN - 05/25/2019 12:40 PM EST PAT questionnaire reviewed with patient while in Pre Admission testing. Pt has tolerated anesthesiain the past. Pre-operative instruction booklet reviewed. Patient verbalizes a good understanding ofall information reviewed. PLAN: Testing: labs Special medication instructions: Procedure date: 06-12-19 Dr Vizcarra documented in this encounter Plan of Treatment Not on file documented as of this encounter Procedures Procedure Name Priority Date/Time Associated Diagnosis Comments HC CREATININE Routine 05/25/2019 1:41 PM EST Complex ovarian cyst documented in this encounter Results * Creatinine (05/25/2019 1:41 PM EST) Creatinine 0.73 0.70 - 1.20 mg/dL [facility] Est Glomerular Filtration Rate 95 >=60 mL/min/1.7 3 m?? [facility] Comment: The eGFR was calculated using the CKD-EPI equation. As with all creatinine based estimates of kidney function, eGFR values calculated with the CKD-EPI equation are not accurate in patients with acute kidney failure, extremes of body mass or the acutely ill. http://Impact/[facility] eGFR 110 >=60 mL/min/1.7 3 m?? [facility] Comment: The eGFR was calculated using the CKD-EPI equation. As with all creatinine based estimates of kidney function, eGFR values calculated with the CKD-EPI equation are not accurate in patients with acute kidney failure, extremes of body mass or the acutely ill. http://Impact/[facility] Blood specimen (specimen) 05/25/2019 1:41 PM EST 05/25/2019 1:50 PM EST Narrative Resulting Agency Comment Spec In Lab Haylee Vizcarra MD CHEMISTRY ORDERABLES [facility] [place] [address] documented in this encounter Visit Diagnoses Diagnosis Complex ovarian cyst Other and unspecified ovarian cyst documented in this encounter Care Teams Vc++ Developer Relationship Specialty Start Date End Date Maribel Brian MD [address] [address] PCP - General Family Medicine 05/15/19 08/18/23 documented as of this encounter
--- OUTSIDE RECORDS SUMMARY | 2024-03-27 15:23 | XMS_ITS | Encounter Summary ---
Author Organization [facility] [place] [address] Care Team Providers Care Warehouse Receiving Supervisor Name Role Phone Dinora Land MD Primary Care Provider [phone] Encounter Details Date Type Department Care Team (Latest Contact Info) Description 11/30/2010 2:36 PM EDT - 11/30/2010 11:59 PM EDT Hospital [place] [phone] Yesica Hale MD [address] [place] [address] Discharge Disposition: Home Social History Tobacco Use Types Packs/Day Years Used Date Smoking Tobacco: Never Assessed Sex and Gender Information Value Date Recorded Sex Assigned at Not on file Gender Identity Not on file Sexual Orientation Not on file documented as of this encounter Medications at Time of Discharge Medication Sig Dispensed Refills Start Date End Date GLUCOSAMINE HCL/CHONDRO DEJESUS A (GLUCOSAMINE-CHONDROITIN ORAL) 06/01/2008 CIS Free Text Med - [facility] ultra nourishair 06/01/2008 05/25/2019 drospirenone-ethinyl estradiol (CINDY 28) 3-20 mg-mcg per tablet 06/01/200805/25 documented as of this encounter Plan of Treatment Not on file documented as of this encounter Procedures Procedure Name Priority Date/Time Associated Diagnosis Comments SURGICAL PATHOLOGY REPORT Routine 11/30/2010 3:03 PM EDT documented in this encounter Results * SURGICAL PATHOLOGY REPORT (11/30/2010 3:03 PM EDT) Surgical Pathology Report ? [facility] ? Provider: ?? YESICA HALE ?Pt. Name: ?? DARIUSADALBERTO ? Acc #: ?[id number] ? Pt. ? Col Date: ?? 11/30/2010 ? /Sex: ?1965,(45 years),Female ? Rec Date: ?? 12/01/2010 ? LOC: ?[facility] ? SURGICAL PATHOLOGY ? ---Pathologic Diagnosis--- ? Skin of left back near midline, shave biopsy: ?Atypical intraepidermal melanocytic proliferation occurring in ? association with a melanocytic nevus. ??See Comment. ? CR-0 ? 12/02/10 ? AJE ? 12/05/10 Verified by: ? Erick Jorgensen MD ? Dermatopathologist ? (Electronic Signature) ? The attending pathologist whose signature appears on this report has ? reviewed all diagnostic slides and has edited the gross and/or ? microscopic portion of the report in rendering the final pathologic ? diagnosis. ? ---Comment--- ? Although this could represent a severely atypical dysplastic nevus, the ? possibility that this represents an evolving malignant melanoma in situ ? occurring in association with a nevus cannot be excluded. ??Because of this ? later consideration and ??because the lesion extends to deep and peripheral ? edges, the complete excision of this lesion including an appropriate margin ? of normal and non-scarred skin and subcutis is strongly recommended to ? fully assess its nature and to ensure its total removal. ??This case has ? been reviewed by DrsMelissa Mack, Nate, and Gómez, who concur with the ? diagnosis. ??Multiple deeper levels have been examined. ? ---Microscopic Description--- ? Slides reviewed, microscopic description not recorded. ? ---Gross Description--- ? Labeled/Fixative: ? L back, formalin. ? Qty/Size/Weight: ?Single shave, 0.7 cm, white with a 0.6-cm, brown ? macule. ? Sections/Processing: ??Trisected. ??(T1) aje/SNS ? ---Clinical Information--- ? Specimen Submitted: ? A - L back rear midline, shave (1) ? Report to: ? [facility] ? Provider: ?? YESICA HALE ?Pt. Name: ?? ADALBERTO TALBOT ? Acc #: ?[id number] ? Pt. ? Col Date: ?? 11/30/2010 ? /Sex: ?1965,(45 years),Female ? Rec Date: ?? 12/01/2010 ? LOC: ?[facility] ? SURGICAL PATHOLOGY ? Yesica Hale MD ? Dermatology ? [address] , [address] ? [place], [place] ??[address] ? Phone - ? FAX - ? Clinical History/Diagnosis: ? 6-mm irregular brown macule. ??Nevus R/O MM CERNER SARAHENNIUM 11/30/2010 3:03 PM EDT Yesica Hale MD PATHOLOGY/CYTOLOGY O RDERABLES MARLENE LEBLANC documented in this encounter Visit Diagnoses Not on filedocumented in this encounter Care Teams Warehouse Receiving Supervisor Relationship Specialty Start Date End Date Dinora Land MD [address] [place] [address] PCP - General 06/13/10 05/14/19 documented as of this encounter
--- OUTSIDE RECORDS SUMMARY | 2024-03-27 15:23 | XMS_ITS | Encounter Summary ---
Author Organization [facility] [place] [address] Care Team Providers Care Cloth Tester Quality Name Role Phone Dinora Land MD Primary Care Provider [phone] Reason for Visit * Reason Comments Eye Problem flashes and flaoters Encounter Details Date Type Department Care Team (Latest Contact Info) Description 02/18/2016 Unscheduled [place] [address] Bruno Benitez MD [facility] [place] [address] PVD (posterior vitreous detachment), right Social History Tobacco Use Types Packs/Day Years Used Date Smoking Tobacco: Never Sex and Gender Information Value Date Recorded Sex Assigned at Not on file Gender Identity Not on file Sexual Orientation Not on file documented as of this encounter Progress Notes * Bruno Benitez MD - 02/18/2016 11:59 AM EDT ASSESSMENT 1. PVD (posterior vitreous detachment), right Weekend urgent visit. New PVD as of last night No breaks or tears noted PLAN FU with Dr. Cardenas for repeat DFE in 4-6 weeks. [facility] [place] PRN Sooner PRN The ophthalmology scribe for this encounter is Fitz Grace I performed and personally participated in the triana and critical portions of the service. I have reviewed/updated the documentation, and confirm that all of the information is accurate as described. Bruno Benitez MD documented in this encounter Plan of Treatment Not on file documented as of this encounter Visit Diagnoses Diagnosis PVD (posterior vitreous detachment), right documented in this encounter Care Teams Cloth Tester Quality Relationship Specialty Start Date End Date Dinora Land MD [address] [place] [address] PCP - General 06/13/10 05/14/19 documented as of this encounter
--- OUTSIDE RECORDS SUMMARY | 2024-03-27 15:23 | XMS_ITS | Encounter Summary ---
Author Organization [facility] Address [facility] [place] [address] Care Team Providers Care Supervisor Cereal Name Role Phone Maribel Brian MD Primary Care Provider [phone] Reason for Visit * Reason Comments Establish Care Ovarian Mass * Consultation (Routine) - Specialty Diagnoses / Procedures Referred By Contac t Referred To Contact Gynecology Oncology Diagnoses INCIDENTAL FINDING ON PELVIC EXAM OVARIAN MASS Heather Ashley MD [address] [place] [address] [facility] [employer] [address] [place] [address] [place] [address] Referral ID Status Reason Start Date Expiration Date V isits Requested Visits Authorized [id number] Consult, Test & Treat Connection Center PCP Updated and/or Approved 05/15/2019 05/14/2020 6 6 Encounter Details Date Type Department Care Team (Late st Contact Info) Description 05/25/2019 11:00 AM EST Office Visit [place] [address] Haylee Vizcarra MD [facility] [place] [address] Complex ovarian cyst (Primary Dx) Social History Tobacco Use Types [...] Sign Reading Time Taken Comments Blood Pressure 118/82 05/25/2019 11:15 AM EST Pulse 96 05/25/2019 11:15 AM EST Temperature 37.1 ??C (98.7 ??F) 05/25/2019 11:[address] Respiratory Rate 18 05/25/2019 11:15 AM EST Oxygen Saturation 97% 05/25/2019 11:15 AM EST Inhaled Oxygen Concentration - - Weight 85.7 kg (188 lb 15 oz) 05/25/2019 11:15 A M EST Height 165.5 cm (5' 5.16) 05/25/2019 11:[address] Body Mass Index 31.29 05/25/2019 11:15 AM EST documented in this encounter Progress Notes * Kenn Omalley MD - 05/25/2019 11:00 AM EST Images from the original note were not included. Division [place] [address] Gynecologic Oncology Clinic New Consultation patient Visit Reason for visit: Right ovarian mass Problem List There is no problem list on file for this patient. History of present illness: Julieta Mccoy is a 53 y.o. female referred for evaluation and management of a right adnexal mass. Julieta was seen by her triage technician provider for a routine exam and was found to have a 3 cm firm mass at the vaginal apex. Follow up TVUS notable for a 4 cm complex ovarian mass. Today in the office, she notes that she had not noticed any symptoms for this. She does state that since her surgery in 2016 to remove an ovarian cyst that was incidentally found on a CT scan for kidney stones, she has had some right incisional pain. It sounds like she had a nerve entrapment that resolved with an injection and now she has some RLQ pain again and it is a bit higher than it was in the past with the nerve entrapment. She denies any nausea, emesis, bloating, early satiety, weight change, change in bowel or bladder pattern. Gynecologic history: S/p NELLA in 2008 for benign indications(enlarged uterus with fibroids). S/p a bilateral salpingectomy and left oophorectomy in 2017. Denies vaginal bleeding since then. Pap smears were annually and were all normal. OB History: Cancer screening 1. Mammography: up to date and wnl 2. Colonoscopy: 09/2017 wnL. Family history: Mother with premenopausal breast and then colon cancer. Sister with throat cancer, smoker. Father with bone cancer, unclear of primary. 2 paternal uncles of cancer. Past medical history 1. osteoarthritis. 2. Pelvic cyst 3. Chronic joint pain Past surgical history 1. Abdominal hysterectomy 2008 for fibroids 2. Open left salpingo-oophorectomy and right salpingectomy 2016: multiloculated mesothelial cyst removed although ovarian tissue identified on final path. 3. Left wrist arthroplasty 4. Cataract removal 5. Right wrist internal fixation 6. Kidney stone removal Social history: She lives alone in [place], [place]. This is near [facility]. 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 She has friends to help out. She is but does not live with her . He would help out if needed. Tobacco history: never smoked Alcohol history: about 6 drinks per year Other drugs: none Performance status: Karnofsky Scale - 100 Medications 1. Duloxetine 2. Glucosamine 3. Multivitamin Allergies No Known Allergies Vital signs: BP 118/82 (Patient Position: Sitting) Pulse 96 Temp 37.1 ??C (98.7 ??F) (Temporal) Resp 18 Ht 165.5 cm (5' 5.16) Wt 85.7 kg (188 lb 15 oz) SpO2 97% BMI 31.29 kg/m?? Physical examination General: She is alert and oriented, well-groomed and dressed, no obvious distress. She ambulates easily. HEENT: PERRLA, no scleral icterus or corneal arcus. Mucus membranes were moist. Neck was supple andwithout thyromegaly or adenopathy. Lungs: Clear to auscultation bilaterally Heart: RRR, no murmur, rubs, gallop Abdomen:Soft, non tender, non distended. No HSM, no palpable masses. Well-healed prior Pfannenstielincision. Pelvic Exam: Normal external female genitalia with a normal pubic hair distribution. The Bartholin's and Dukedom's glands are unremarkable. The urethra is without masses. The urethral meatus is withoutprolapse. The vagina is pink and rugated. There are no vaginal lesions. The vaginal cuff is intact.Bimanual exam reveals an approximately 3 cm firm nodular mass at the apex but posterior area of thevaginal cuff. Feels like the ovary have scarred to the vaginal cuff and is not very mobile. Extremities: No edema. TVUS 05/08/19: right ovarian mass with cystic and solid components and internal vascularity, measures 4.6 x 5.1 x 1.7 cm Impression/plan: Julieta Mccoy is a 53 y.o. year old female seen in consultation at the request of Dr. Ashley, Heather Richardson Md [address] [place] [address] for evaluation of a complex cystic pelvic mass in the setting of a prior hysterectomy. Her physcial exam and review of imaging confirms this finding. Upon review of these findings with Julieta Mccoy, I explained that the standard of care for complex pelvic masses is removal for definitive diagnosis. Alternatively, if she was not a surgical candidate, this could be monitored for interval growth. However, given its complexity there is a risk of ovarian malignancy or borderline tumor and this would be best found expeditiously. Is also quite likely that this could grow such as a serous cystadenofibroma. Given these findings, the decision was made to proceed with surgical exploration. During the courseof obtaining informed consent, I explained that the goal of surgery is twofold. First, it would allow us to remove the mass and obtain a frozen section for diagnosis and second it would allow for surgical staging if in fact this is a cancer. The risks of bleeding, infection, damage to surrounding organs, including but not limited to, the bowel, bladder, ureters and blood vessels, and DVT/PE were also reviewed with the patient. At the conclusion of our visit all of her questions were answered and she verbalized understanding of the nature of her condition and the plan of care that was outlined. We will plan for preadmission testing today as well as a Ca125 level. Surgery has been scheduled for June 12. I have seen and examined the patient and reviewed and edited the resident's above history and I agree with the details as written. The assessment and plan were formulated in discussion with me and I agree with them as documented. Haylee Vizcarra MD documented in this encounter Plan of Treatment Not on file documented as of this encounter Procedures Procedure Name Priority Date/Time Associated Diagnosis Comments HC CANCER ANTIGEN 125 Routine 05/25/2019 1:41 PM EST documented in this encounter Results * Cancer Antigen 125 (05/25/2019 1:41 PM EST) CA 125 8.4 <=38.1 unit/mL [facility] Comment: CA 125 Reference Interval ??Postmenopausal: 6.2 to 31.5 U/mL. ??Premenopausal: 6.9 to 45.9 U/mL. ??Pre and Postmenopausal subjects combined: 6.4 to 38.1 U/mL. Blood specimen (specimen) 05/25/2019 1:41 PM EST 05/25/2019 1:50 PM EST Narrative Resulting Agency Comment Spec In Lab Haylee Vizcarra MD CHEMISTRY ORDERABLES [facility] [place] [address] * Creatinine (05/25/2019 1:41 PM EST) Creatinine 0.73 0.70 - 1.20 mg/dL [facility] Est Glomerular Filtration Rate 95 >=60 mL/min/1.7 3 m?? [facility] Comment: The eGFR was calculated using the CKD-EPI equation. As with all creatinine based estimates of kidney function, eGFR values calculated with the CKD-EPI equation are not accurate in patients with acute kidney failure, extremes of body mass or the acutely ill. http://[employer]/DHMCnkf eGFR 110 >=60 mL/min/1.7 3 m?? [facility] Comment: The eGFR was calculated using the CKD-EPI equation. As with all creatinine based estimates of kidney function, eGFR values calculated with the CKD-EPI equation are not accurate in patients with acute kidney failure, extremes of body mass or the acutely ill. http://[employer]/DHMCnkf Blood specimen (specimen) 05/25/2019 1:41 PM EST 05/25/2019 1:50 PM EST Narrative Resulting Agency Comment Spec In Lab Haylee Vizcarra MD CHEMISTRY ORDERABLES Performing Organization Address City/State/[facility] Co de Phone Number [facility] [place] [address] documented in this encounter Visit Diagnoses Diagnosis Complex ovarian cyst- Primary Other and unspecified ovarian cyst documented in this encounter Care Teams Supervisor Cereal Relationship Specialty Start Date End Date Maribel Brian MD [address] [place] [address] PCP - General Family Medicine 05/15/19 08/18/23 documented as of this encounter
--- OUTSIDE RECORDS SUMMARY | 2024-03-27 15:23 | XMS_ITS | Encounter Summary ---
Author Organization [facility] [place] [address] Care Team Providers Care Information Tech Name Role Phone Maribel Brian MD Primary Care Provider Reason for Visit * Auth/Cert Specialty Diagnoses / Procedures Referred By Contac t Referred To Contact Diagnoses Right Ovarian Mass Procedures PRO LAP, RMV ADNEXAL STRUCTURE LAPAROSCOPY, REMOVAL OF ADNEXA (WRVU 11.35) Referral ID Status Reason Start Date Expiration Date Visits Re quested Visits Authorized [id number] 1 1 Encounter Details Date Type Department Care Team (Latest Contact Info) Description 06/26/2019 9:02 AM EST - 06/26/2019 3:[address] [facility] Hospital Encounter [place] [address] Haylee Vizcarra MD [facility] [place] [address] Adnexal mass Discharge Disposition: Home Social History Tobacco Use [...] Sign Reading Time Taken Comments Blood Pressure 122/81 06/26/2019 2:30 PM EST Pulse 79 06/26/2019 2:30 PM EST Temperature 36.1 ??C (97 ??F) 06/26/2019 1:21 PM EST Respiratory Rate 16 06/26/2019 2:30 PM EST Oxygen Saturation 98% 06/26/2019 2:30 PM EST Inhaled Oxygen Concentration - - [...] Appointments: 07/29/2019 2:30 PM Haylee Vizcarra MD [facility] [address] Gynecology phone number: [phone] Call your doctor if you develop: --A [...] CAPSULE BY MOUTH ONCE DAILY 0 05/20/2019 [id number]-ZW-[id number]-[id number] -be-mv 1.5 mg iron- 8.73 mg capsule,IR [...] for Visit: 53 y.o. [place] [facility] [place]. History of Present Illness: [...] ONCE DAILY at Unknown time ? ? [id number]-JP-[id number]-[id number]-JMI-BIKF-be-mv 1.5 mg iron- 8.73 mg capsule,IR & [...] file Gets together: Not on file Attends mandaeism service: Not on file Active member of [...] Vizcarra MD - 06/26/2019 3:03 PM EST [facility] [place] Note Patient Name: Julieta Mccoy : [id number] MR#: [id number] Case Date: 06/26/2019 Surgeon: Surgeon(s) and Role: [...] Operative Note Patient Name: Julieta Mccoy : [id number] MR#: [id number] Case Date: 06/26/2019 Surgeon: Surgeon(s) and Role: [...] TO PATHOLOGY STAT 06/26/2019 12:04 PM EST NON-AUTOMOBILE UPHOLSTERER APPRENTICE FINAL REPORT Routine 06/26/2019 11:53 AM EST CYTOPATHOLOGY NON-GYNECOLOGICAL Routine 06/26/2019 11:53 AM EST Lap, Rmv Adnexal Structure ([id number]) 06/26/2019 10:59 AM EST Right Ovarian Mass documented in this encounter Results * Surgical Pathology Report (06/26/2019 12:06 PM EST) Final Diagnosis [id number] ? Location: [facility]; [facility]; The signing pathologist has (i) examined the relevant preparation(s) for the specimen(s) and (ii) rendered or confirmed the diagnosis(es). . ?Surgical Pathology DIAGNOSIS Right fallopian tube and ovary (salpingo-oophore ctomy): ?? 1. Ovarian follicular cysts. ?? 2. Surface adhesions. ?? 3. Dilated fallopian tube (hydrosalpinx). ?? 4. Paratubal cysts. CR-0 Electronically signed by: ??Guille Pedro MD Verified: ??07/02/2019 ?Pathologist Performed at: ??-[facility] Dept. [place], [place], [place] CLINICAL INFORMATION Specimen Submitted: A - [...] to 1.7 cm. Frozen section is performed. Business Development Manager sections in 10 cassettes as follows: ?A1-A2: [...] Debora Zarco Verified: ??06/26/2019 ?Pathologist Performed at: ??-[facility] [place]. of [place], [place], [place] This intraoperative consultation should be interpreted as a preliminary diagnosis pending review of the entire specimen and special studies, if any. 07/02/2019 1:18 PM EST [facility] OVARIAN PART / Unknown 06/26/2019 12:06 PM EST 06/26/2019 12:06 PM EST Haylee Vizcarra MD PATHOLOGY/CYTOLOGY O LAINA Performing Organization Address [facility] [place] [address] * Specimen to Pathology (06/26/2019 12:04 PM EST) AP Specimen 06/26/2019 12:0 4 PM EST 06/26/2019 12:04 PM EST Narrative [facility] - 06/26/2019 12:04 PM EST Specimen requisition ordered. ??Separate Pathology report to follow Haylee Vizcarra MD PATHOLOGY/CYTOLOGY O RDRONAN Performing Organization Address [facility] [place] [address] * Non-Microbiology Lab Manager Final Report (06/26/2019 11:53 AM EST) Diagnosis Discussion [id number] ? Location: [facility]; [facility]; The signing pathologist has (i) examined the relevant preparation(s) for the specimen(s) and (ii) rendered or confirmed the diagnosis(es). . ? Non-Microbiology Lab Manager Final DIAGNOSIS Negative for Malignancy Electronically signed by: ??Deisrae CALLOWAY PhD, Julian Zarco Verified: ??06/30/2019 ?Pathologist Performed at: ??-[facility] [place]. of [place], [place], [place] DISCUSSION Pelvic washing: Mesothelial cells, lymphocytes, [...] Cell Block 1. 06/30/2019 3:42 PM EST [facility] Pelvic Washing 06/26/2019 11 :53 AM EST 06/26/2019 11:53 AM EST Haylee Vizcarra MD PATHOLOGY/CYTOLOGY O LAINA Performing Organization Address [facility] Co de Phone Number [facility] [place] [address] * Cytopathology Non-Gynecological (06/26/2019 11:53 AM EST) AP Specimen 06/26/2019 11:5 3 AM EST 06/26/2019 11:53 AM EST Narrative [facility] - 06/26/2019 11:53 AM EST Specimen requisition ordered. ??Separate Pathology report to follow Haylee Vizcarra MD PATHOLOGY/CYTOLOGY O LAINA Performing Organization Address [facility] Co de Phone Number [facility] [place] [address] documented in this encounter Visit Diagnoses Diagnosis Adnexal mass Other specified symptom associated with female genital organs Adnexal mass Other specified symptom associated with female genital organs documented in this encounter Administered Medications Inactive Administered Medications - up to 3 most recent administrations Medication Order MAR Action Action Date Dose Rate Site heparin (Porcine) subcutaneous injection 5,000 Units 5,000 [...] PRN, Starting on Sat06/26/19 at 1316, Until 06/26/19 at 1703, Pain, - If multiple pain medications ordered, use acetaminophen first. - If pain not relieved by acetaminophen first, administer oxycodone. - Initial dose 5 mg. - If pain control not adequate in 60 minutes, give additional 5 mg., Routine 1418 (Given - Provid er: Kanu Jackson RN) documented in this encounter Care Teams Information Tech Relationship Specialty Start Date End Date Maribel Brian MD [address] [place] [address] PCP - General Family Medicine 05/15/19 08/18/23 documented as of this encounter
--- OUTSIDE RECORDS SUMMARY | 2024-03-27 15:23 | XMS_ITS | Encounter Summary ---
Author Organization [facility] [place] [address] Care Team Providers Care Telegraph Repeater Installer Name Role Phone Dinora Land MD Primary Care Provider [phone] Encounter Details Date Type Department Care Team (Late st Contact Info) Description 05/08/2019 Ancillary Procedure [place] [id number] Keven Ames MD [facility] [place] [address] Social History Tobacco Use Types Packs/Day Years Used Date Smoking Tobacco: Never Sex and Gender Information Value Date Recorded Sex Assigned at Not on file Gender Identity Not on file Sexual Orientation Not on file documented as of this encounter Plan of Treatment Not on file documented as of this encounter Procedures Procedure Name Priority Date/Time Associated Diagnosis Comments FILM LIBRARY STORAGE ONLY ULTRASOUND STUDY Routine 05/08/2019 12:00 AM EDT documented in this encounter Results * Film Library- Storage Only Ultrasound Study (05/08/2019 12:00 AM EDT) Narrative MINESH - 05/18/2019 8:49 AM EDT This exam is auto-finalizing. It's purpose is for storage only. Keven Ames MD IMG FILM LIBRARY ORD ERABLES [place], [place] documented in this encounter Visit Diagnoses Not on filedocumented in this encounter Care Teams Telegraph Repeater Installer Relationship Specialty Start Date End Date Dinora Land MD [address] [place] [address] PCP - General 06/13/10 05/14/19 documented as of this encounter
[2024-03-27 21:40] LABS: Hemoglobin A1C 5.9 % (<5.7)
[2024-03-27 21:50] LABS: ALT 37 U/L (14-59); AST 31 U/L (15-37); Albumin 3.8 g/dL (3.4-5.0); Alkaline Phosphatase 80 U/L (46-116); Anion Gap 10.5 mmol/L (3-11); BUN 11 mg/dL (7-18); CO2 27.5 mmol/L (21.0-32.0); CREATININE 0.9 mg/dL (0.55-1.02); Calcium 8.6 mg/dL (8.5-10.1); Calculated LDL 164 mg/dL (<100); Chloride 103 mmol/L (98-107); Cholesterol 252 mg/dL (<200); Estimated GFR 74.57 (mL/min/1.73m2); Glucose 113 mg/dL (74-106); HDL Cholesterol 68 mg/dL (40-60); Potassium 3.5 mmol/L (3.5-5.1); Sodium 141 mmol/L (136-145); TSH 2.79 uIU/Ml (0.36-3.74); Total Protein 8.1 g/dL (6.4-8.2); Triglyceride 104 mg/dL (<150)
== END 2024-03-27 15:20 | disposition home or self-care (01) ==
LOC: NCHCN 15:19
PROVIDERS: PCP Family Medicine; Visit Provider Family Medicine
DX: E05.90 Thyrotoxicosis, unspecified without thyrotoxic crisis or storm (principal); R73.03 Prediabetes; E78.5 Hyperlipidemia, unspecified
CPT/HCPCS: 80053; 80061; 83036; 84443

== ENCOUNTER 2024-07-01 09:16 | Day surgery (SDC) | payer OTHER, SELFPAY ==
--- NOTE | 2024-06-30 16:28 | W.PM.DSUDISC ---
Date of service: 07/01/24 Discharge Plan Disposition Patient Disposition: Home Condition: Good Discharge Details Reason For Visit: exicisional biopsy of submandibular lymph node Attending Provider: Vincent Marie Primary Care Provider: Mei Ge Home Meds and New Rx's Prescriptions: Continued estradiol 1 mg tablet 1 mg PO DAILY Rx Instructions: off 1 week; repeat cycle levothyroxine 25 mcg capsule 12.5 mcg PO DAILY levothyroxine 50 mcg capsule 50 mcg PO DAILY liraglutide [Victoza 3-Jer] 0.6 mg/0.1 mL (18 mg/3 mL) pen injector 1.8 mg subcut Q24H multivitamin with minerals 1 EACH tablet 1 ea PO QAM pinecone extract 1 cap PO QAM Fish Oil 1 EACH capsule 1 ea PO DAILY duloxetine 20 mg capsule,delayed release(DR/EC) 60 mg PO DAILY glucosamine-chondroitin 500-400 mg tablet 2 tab PO DAILY cholecalciferol (vitamin D3) 1,000 UNITS tablet 5,000 unit PO HS Ferractiv 27-100-400 mg-mcg-mcg capsule 1 cap PO .weekends Discharge Instructions Additional Instructions: Julieta, it was very nice seeing you today, and I hope you make a quick recovery from this procedure. We are able to find and remove that lymph node without much difficulty. As we discussed before hand, this will be sent off for the pathologist for testing, and once we have a actual tissue diagnosis, let you know if anything else needs to be done. I have attached some basic instructions below to help care for the surgical site. You will see you have a Band-Aid on top, and a couple stitches at the skin underneath. Band-Aid can be left in place until tomorrow, then removed, and the incision can be washed with warm soapy water. You do not need to have a Band-Aid over the incision in the days to follow, but if you prefer to have 1 over top to cover the stitches, that is fine to. We have set up a follow-up appointment in the office on the at 11 AM to get those stitches removed. There is also a few layers of stitches underneath that your body will absorb. I would not be surprised if you get some bruising in the area of the incision, that is extremely common and nothing to worry about. The 1 thing that you should be on the look out for over the next 1 to 2 days is significant swelling in the area. If you notice any difficulty breathing, swallowing, or significant changes in your voice, and like to know about that immediately. If you find yourself in that situation, and you have any difficulty getting in touch with us, please go to the emergency department right away. I do not expect this to happen, but if it does, early diagnosis and treatment is important. I think you will make a quick and smooth recovery. But if you need anything at all, please do not hesitate to call at any time. 1. Resume all of your regular medications. 2. Use an ice pack, or a frozen bag of peas over the incision to help with postoperative pain. I usually recommend placing it on the tissue for about 15 minutes, then taking about a 45-minute break. This can be done as often as provides relief. 3. Alternate hkdd-noa-pnhospz Tylenol and ibuprofen every 6 hours for the first 2 days, then use as needed. 4. Leave bandage in place for 24 hours, then remove. If the bandage becomes saturated, it can be replaced sooner than that. If it remains dry, leave in place for 5. Shower with warm soapy water. Pat dry. Use a bandaid if needed to protect your clothing. 6. No soaking or tub baths until I see you in the office. 7. No heavy lifting until I see you in the office. 8. Call the office (or go directly to the emergency room after hours) if you notice any of the following: New onset of hoarseness Difficulty swallowing Swelling across the midportion of your neck 9. Call your physician if the site where your intravenous was started becomes red, swollen, painful, and warm to touch. Activity:: Activity as Tolerated Remove Dressings/Wound Care:: 24 hours Shower/Bathe:: 24 hours Diet:: As Tolerated Discharge Orders Discharge Orders: Discharge Order (Routine); Ordered 06/30/24 Ordered By: Vincent Marie DS: Diagnosis Discharge Diagnosis (1) Submandibular lymphadenopathy: Status: Acute Asessment and Plan: Outpatient follow-up for suture removal on July 08 at 11 AM
--- NOTE | 2024-06-30 16:31 | ROE_ITS ---
Operative Note Operative Note PRE-OP DIAGNOSIS: Right submandibular lymphadenopathy POST-OP DIAGNOSIS: same PROCEDURE: excisional biopsy of right sided submandibular lymph node SURGEON: Vincent Marie PROFESSOR OF OCEANOGRAPHY: Chantel Lucio ANESTHESIA TYPE: Local By Surgeon and General LMA/ETT Refer to Anesthesia Record ESTIMATED BLOOD LOSS: 25 PATHOLOGY: other (Right submandibular lymph node) COMPLICATIONS: None Patient was transported to: PACU Patient's condition: stable Indications: Julieta is a 58-year-old woman with right submandibular lymphadenopathy. Ultrasound showed a lymph node size above the upper limit of normal for the submandibular position Findings: Right-sided submandibular lymphadenopathy Procedure Description: I met with Julieta in the day surgery unit, and we reviewed the plan for an excisional lymph node biopsy. Explained the nature of the procedure once again, and I think she has a very good understanding of this. Next, we moved back to the operating room. She was assisted onto the OR table and padded and supported appropriately. General anesthesia was induced by way of a laryngeal mask airway. The head was turned slightly towards the left side. I then prepped and draped the right neck. I made a small incision parallel to the underside of the mandible and dissected down through the subcutaneous tissues. Muscles of the platysma were identified and [id number] coming down onto the enlarged lymph node underneath of this. Careful dissection was used to clear away the surrounding soft tissues. Hemostats were used to control the vascular pedicles, and the specimen was sharply divided and passed off the field. The pedicles were suture-ligated. There was a small amount of bleeding from the inferior portion of this. This was controlled with another [id number] 3-0 Vicryl stitch. The wound was then irrigated. It was packed for approximately 5 minutes. Gauze was removed, and it was clean. There is no evidence of any more bleeding. The platysma was gently reapproximated in the midline, and subcutaneous tissues were closed with interrupted 3-0 Vicryl stitches. The skin was reapproximated with interrupted 6-0 nylon sutures. A Band-Aid was applied, patient was awoken from the anesthetic and transferred to the recovery unit. Date of Procedure: 07/01/24
[2024-07-01] VITALS (14 sets, daily range): BP systolic 127–139; BP diastolic 69–80; PULSE 72–85; RESP 11–18; TEMP 36.2–36.8; O2SAT 94–99; BMI 30.9
[2024-07-01] MEDS: Normal Saline 500 ML 30 ML IV (10:12)
[2024-07-01] MEDS: Gabapentin 300 MG CAP 600 MG PO (10:13)
[2024-07-01] MEDS: Acetaminophen 500 MG TAB 1000 MG PO (10:13)
--- NOTE | 2024-07-01 11:44 | W.ANESPRE ---
General Info Date of Service Date Performed: 07/01/24 Height: 5 ft 4 in Weight: 81.76 kg Body Mass Index (BMI): 30.9 Surgical Procedure: Operation Date: 07/01/24 11:25 Proposed Procedure Side Surgeon p Excision Lymph Node Submandibular Right Vincent Marie MD Meds Allergies and Home Medications Allergies Allergy/AdvReac Type Severity Reaction Status Date / Time No Known Allergies Allergy Verified 06/29/24 13:52 Home Medication ?Medication ?Instructions ?Recorded multivitamin with minerals 1 ea PO QAM 09/29/12 Pinecone Extract 1 cap PO QAM 10/13/12 cholecalciferol (vitamin D3) 25 5,000 unit PO HS 07/28/15 mcg (1,000 unit) tablet omega-3 fatty acids-fish oil 340 1 ea PO DAILY 03/07/18 mg-1,000 mg capsule (Fish Oil) duloxetine 20 mg capsule,delayed 60 mg PO DAILY 10/31/22 release glucosamine-chondroitin 500 mg-400 2 tab PO DAILY 02/13/23 mg tablet iron amino acid chelate-vit 1 cap PO .weekends 02/13/23 [id number]-[id number] acid 27 mg-100 mcg-400 mcg cap (Ferractiv) estradiol 1 mg tablet 1 mg PO DAILY 03/12/23 levothyroxine 25 mcg capsule 12.5 mcg PO DAILY 06/16/24 levothyroxine 50 mcg capsule 50 mcg PO DAILY 06/16/24 liraglutide 0.6 mg/0.1 mL (18 mg/3 1.8 mg subcut Q24H 06/16/24 mL) subcutaneous pen injector (Victoza 3-Jer) Current Visit Medications: Current Medications Generic Name Dose Route Start Last Admin Trade Name Freq PRN Reason Stop Dose Admin Acetaminophen 1,000 mg 07/01/24 06:00 07/01/24 10:13 Acetaminophen 500 Mg Tab PO 07/01/24 23:59 1,000 mg PREOP ISAAK Administration Gabapentin 600 mg 07/01/24 06:00 07/01/24 10:13 Gabapentin 300 Mg Cap PO 07/01/24 23:59 600 mg PREOP ISAAK Administration Hydromorphone HCl 0.2 mg 06/30/24 16:33 Hydromorphone 1 Mg/Ml Syr IVP 07/30/24 16:32 Q1H PRN PRN Sodium Chloride 500 mls @ 30 mls/hr 12/11/24 09:30 07/01/24 10:12 Saline 500ml Bag IV 07/31/24 09:29 30 mls/hr INFUSION ISAAK Administration IV Miscellaneous Supplies 1 each 07/01/24 06:00 Iv Access IV 07/01/24 23:59 DIRECTED ISAAK Sodium Chloride 0 ml 07/01/24 06:00 Normal Saline Flush 10 Ml Syr IV 07/01/24 23:59 PRN PRN Sodium Chloride 0 ml 07/01/24 06:00 Normal Saline 10 Ml Vial IJ 07/01/24 23:59 DIRECTED PRN Sterile Water 0 ml 07/01/24 06:00 Water,Injection,Sterile 10 Ml Vial IJ 07/01/24 23:59 DIRECTED PRN Tramadol HCl 50 mg 06/30/24 16:33 Tramadol 50 Mg Tab PO 07/30/24 16:32 Q6H PRN PRN Pain PFSH Active Problems Active Problems: Problem Status Onset Code Traumatic tear of left rotator cuff Acute 12/15/22 S46.012A Tinnitus, bilateral Acute H93.13 Menopausal symptom Acute N95.1 History of right oophorectomy Acute Z90.721 Hallux valgus of right foot Acute M20.11 Hallux valgus of left foot Acute M20.12 Primary osteoarthritis of right knee Acute M17.11 Primary osteoarthritis of left knee Acute M17.12 Medical History Medical History Fatigue Kidney stone Joint pain Rx with Duloxetine. Medical History Comments:: Per preop: Projective vomiting, and states it takes her a very long time to come out of anesthesia. Pt states in regards to doing a nerve block, she has residual numbness in (L) wrist; reports mother also had similar issues They gave me the redhead dose Surgical History Surgical History Hx of repair of left rotator cuff Hx of thumb surgery left Oophrectomy, Left 2017. Multiloculated mesothelial cyst removed via laparotomy. ? ovarian tissue identified. Bilateral salpingectomy performed at same surgery. R ovary has never been removed (no evidence of path report in [facility] records) Abdominal hysterectomy B9 indications. Fibroids. Colonoscopy - MAC (09/30/17) Extraction of cataract Arthroplasty (08/17/16) INTERPOSITIONAL ARTHROPLASTY --right wrist/DR. SADLER plate and screw in situ Tobacco Smoking/Tobacco Use Status: Never Alcohol Alcohol Intake: current Alcohol intake frequency: a few times a month Substance Use Substance use: Socially Substance use type: marijuana Details: gummies and other edibles Vital Signs and Lab Results Vital Signs Most Recent Vital Signs in EMR: Most Recent Vital Signs Temp Pulse Resp BP Pulse Ox 36.7 C 76 18 127/80 97 07/01/24 09:53 07/01/24 09:53 07/01/24 09:53 07/01/24 09:53 07/01/24 09:53 Lab Results Blood Type / Crossmatch: No Data to Display Complete Blood Count: No Data to Display Complete Metabolic Panel: No Data to Display Liver Function Panel: No Data to Display Coagulation Panel: No Data to Display Cardiac Panel: No Data to Display Arterial Blood Gas: No Data to Display Venous Blood Gas: No Data to Display Pancreas Panel: No Data to Display Thyroid Panel: No Data to Display Infectious Disease: No Data to Display Blood Cultures: No Data to Display Toxicology Panel: No Data to Display Anesthesia Assessment and Plan Anesthesia History Personal History: No History of Anesthesia Complications, PONV, Delayed Emergence and Other Family History: Family History Unknown and Other Exercise Tolerance Exercise Tolerance: Metabolic Equivalents>4 Pertinent Negatives Pertinent Negatives: No Symptoms of GERD Cardiac & Pulmonary Exam Cardiac Exam: Normal S1/S2 Heart Sounds Pulmonary Exam: Clear Bilateral Breath Sounds Implantable Cardiac Device Does patient have a Pacemaker or an ICD?: No Airway Exam Known Difficult Airway: No Mallampati Class: 3 Mouth Opening: Narrow (< 3cm) Thyromental Distance: Greater than 3 cm Neck Range of Motion: Full ROM Neck Circumference: Thick Teeth Condition: Normal Dentition ASA Classification ASA Score: ASA 2 Emergency Case?: No NPO Status NPO Status: NPO Clears >2 hours, Solids >8 hours Anesthesia Plan Resuscitation Status: Full Code Anesthesia Technique: General Anesthesia Airway Planned: LMA Monitors Used: Standard Monitors
[2024-07-01] MEDS: Bupivacaine 0.5% Pres-Free W/EPI 30 ML VIAL (12:24)
--- NOTE | 2024-07-01 12:34 | LYM_PTH ---
PATIENT: Julieta Mccoy LOC: [facility] U#:[id number] AGE/SX: 58/F ROOM: RE07/01/[address]: Vincent Marie MD : 1965 BED: DIS: 07/01/2024 SPEC #: [id number] RECD: 07/01/24 13:33 STATUS: HASMUKH RERolo #: [id number] ALLYN: 07/01/24 12:[address]: Vincent Marie DEPT: Surgical Specimen RECD BY: Maryam Webb Tissues: 1 - LYMPH NODE BIOPSY Procedures: GROSS AND MICRO LEVEL 4 IMMUNOPEROXIDASE STAIN Comments: [id number]
--- NOTE | 2024-07-01 13:40 | W.ANESPOSTOP ---
Postoperative Evaluation Date, Time and Location Date Performed: 07/01/24 Time Performed: 13:40 Patient Location: Day Surgery Unit Vital Signs Most Recent Imported Vital Signs: Most Recent Vital Signs Temp Pulse Resp BP Pulse Ox 36.4 C L 72 11 L 139/73 96 07/01/24 13:15 07/01/24 13:21 07/01/24 13:25 07/01/24 13:21 07/01/24 13:25 Pain Score Most Recent Pain Score: Most Recent Pain Score Pain Level 0 07/01/24 13:20 Assessment Mental Status: Awake (Alert & Oriented to Patient Baseline) Airway and Respiratory Function: Patent airway with normal (patient baseline) respiratory exam Cardiovascular Function: Hemodynamically Stable Hydration Status: Adequately Hydrated Nausea & Vomiting: No Nausea or Vomiting Pain: Pt. Denies Any Pain Peripheral Nerve Block: Patient did not receive a nerve block
[2024-07-01] MEDS: traMADol 50 MG TAB PO (13:48)
== END 2024-07-01 14:30 | disposition home or self-care (01) ==
LOC: SUR 09:16
PROVIDERS: PCP Family Medicine; Visit Provider Surgery
PROC: (CPT 38500; principal; 2024-07-01 11:15)
DX: R59.0 Localized enlarged lymph nodes (principal)
CPT/HCPCS: 38500; 88305; 88361; J1100; J2003; J2371; J2405; J2704; J3010

== ENCOUNTER 2025-02-18 12:17 | Outpatient (REF) | payer OTHER, SELFPAY ==
[2025-02-18 15:54] LABS: TSH (W/Ref FT4) 2.18 uIU/mL (0.36-3.74)
== END 2025-02-18 12:18 | disposition home or self-care (01) ==
LOC: NCHCN 12:17
PROVIDERS: PCP Family Medicine; Visit Provider Family Medicine
DX: E05.90 Thyrotoxicosis, unspecified without thyrotoxic crisis or storm (principal)
CPT/HCPCS: 84443

== ENCOUNTER 2025-03-11 08:10 | Outpatient (CLI) | payer OTHER, SELFPAY ==
--- NOTE | 2025-03-11 | DI.MAMMO_ITS ---
Exam(s) MAMMO SCREENING EXAM: MAMMO SCREENING CLINICAL HISTORY: SCREENING MAMMO Z12.31. TECHNIQUE: Bilateral full field digital CC and MLO mammographic images were obtained with 3D tomosynthesis and utilizing computer aided detection (CAD). COMPARISON: Prior mammograms were reviewed. FINDINGS: There has been no significant change in the appearance and distribution of the fibroglandular tissue. There are no CAD designations. Small benign-appearing nodule posteriorly in the right breast is unchanged from prior studies. Small benign-appearing nodules posterolaterally in the left breast are also unchanged from prior mammograms. There are no new spiculated masses nor new malignant appearing microcalcification groups. There is no significant architectural distortion nor skin thickening-retraction. IMPRESSION: Stable benign-appearing findings. No radiographic evidence of malignancy. BI-RADS Category 2 - Benign Findings Breast Density - Category B - There are scattered areas of fibroglandular density. Breast density Category C or D implies that the patient has dense breast tissue. Dense breast tissue can make it harder to find cancer on a mammogram. Dense breast tissue is also associated with an increased risk of breast cancer. This information about the result of the mammogram report was provided to the patient to raise their awareness. Use this report when you speak with the patient about their risks for breast cancer, which includes their family history. At that time, you may recommend additional screening tests (Ultrasound or MRI) as these tests may add significant information. A negative radiographic report should not delay biopsy if a dominant or clinically suspicious mass is present. Up to ten percent of cancers are not identified on mammography. A negative report may reinforce clinical impression. Adenosis and dense breasts may obscure an underlying neoplasm. False positive reports average 6 to 10%. Patient will receive a letter notifying them of these results.
== END 2025-03-11 08:30 ==
LOC: DI 08:10
PROVIDERS: PCP Family Medicine; Visit Provider Family Medicine
DX: Z12.31 Encounter for screening mammogram for malignant neoplasm of breast (principal); R92.323 Mammographic fibroglandular density, bilateral breasts
CPT/HCPCS: 77063; 77067